=== PATIENT | female | born 1965 | race Caucasian/White ===

== ENCOUNTER → 2016-12-08 | Outpatient (CLI) | payer BC ==
[~2016-12-08] MED LIST: ASP81TEC PO; ENAL5TAB PO; FISH OIL OMEGA1 EACH PO; GEMF600T3 PO; GLIM4TAB PO; HYDR-690 PO; MTF500T PO; TAMO20TA2 PO; VITA400T9 PO
== END ==
LOC: FS 13:51
PROVIDERS: ATTEND Internal Medicine Hematology & Oncology
DX: C50.511 Malignant neoplasm of lower-outer quadrant of right female breast (principal); C77.3 Secondary and unspecified malignant neoplasm of axilla and upper limb lymph nodes; M85.80 Other specified disorders of bone density and structure, unspecified site; E11.9 Type 2 diabetes mellitus without complications; E66.9 Obesity, unspecified; Z68.34 Body mass index [BMI] 34.0-34.9, adult; Z79.811 Long term (current) use of aromatase inhibitors; Z79.899 Other long term (current) drug therapy; Z92.21 Personal history of antineoplastic chemotherapy
CPT/HCPCS: 99213

== ENCOUNTER → 2017-06-15 | Outpatient (CLI) | payer BC | LOC: ONC 11:27 | PROVIDERS: ATTEND Internal Medicine Hematology & Oncology | DX: C50.511 Malignant neoplasm of lower-outer quadrant of right female breast (principal); C77.3 Secondary and unspecified malignant neoplasm of axilla and upper limb lymph nodes; M85.80 Other specified disorders of bone density and structure, unspecified site; E11.9 Type 2 diabetes mellitus without complications; E66.9 Obesity, unspecified; Z68.34 Body mass index [BMI] 34.0-34.9, adult; Z79.811 Long term (current) use of aromatase inhibitors; Z79.899 Other long term (current) drug therapy; Z92.21 Personal history of antineoplastic chemotherapy | CPT/HCPCS: 99213 ==

== ENCOUNTER → 2018-04-20 | Outpatient (CLI) | payer BC | LOC: ONC 09:46 | PROVIDERS: ATTEND Internal Medicine Hematology & Oncology | DX: C50.511 Malignant neoplasm of lower-outer quadrant of right female breast (principal); C77.3 Secondary and unspecified malignant neoplasm of axilla and upper limb lymph nodes; M85.80 Other specified disorders of bone density and structure, unspecified site; E11.9 Type 2 diabetes mellitus without complications; E66.9 Obesity, unspecified; Z68.34 Body mass index [BMI] 34.0-34.9, adult; Z79.811 Long term (current) use of aromatase inhibitors; Z79.899 Other long term (current) drug therapy; Z92.21 Personal history of antineoplastic chemotherapy | CPT/HCPCS: 99213 ==

== ENCOUNTER → 2019-05-29 | Outpatient (CLI) | payer BC ==
--- NOTE | 2019-05-30 10:42 | Diagnostic Imaging Report ---
EXAMINATION: Digital mammogram INDICATION: Bilateral screening This study was compared to the prior exams of 05/25/2018 and 05/14/2017. 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 She also underwent reduction of the left breast in 2008. At this time there are no current complaints. The current study was also evaluated with a Computer Aided Detection (CAD) system. 3-D tomosynthesis was also performed and reviewed. The postsurgical changes involving the right breast seen previously are again evident and no different. There is no sign of recurrent malignancy involving the right breast. The fibroglandular tissue in both breasts is heterogeneously dense. This does limit the sensitivity of this exam. Overall, there does not appear to have been any significant change since the prior study. There is no primary or secondary sign of malignancy noted. IMPRESSION: 1. There is no evidence for malignancy. 2. The patient should have her annual bilateral mammogram on schedule in May 2020. ACR BI-RADS Category 1: Negative. Result letter will be mailed to the patient. Note: At least 10% of breast cancer is not imaged by mammography. Dictated by: Dictated on workstation # [id number]
== END ==
LOC: RAD 09:48
PROVIDERS: ATTEND Internal Medicine Hematology & Oncology
DX: Z12.31 Encounter for screening mammogram for malignant neoplasm of breast (principal); C50.111 Malignant neoplasm of central portion of right female breast; Z98.890 Other specified postprocedural states
CPT/HCPCS: 77067

== ENCOUNTER → 2019-12-15 | Outpatient (CLI) | payer BC ==
[2019-12-15 09:49] LABS: BASOPHILS % (AUTO) 0 % (0-10); EOSINOPHILS # (AUTO) 0.1 10^3/uL (0.0-0.3); EOSINOPHILS % (AUTO) 1 % (0-10); HEMATOCRIT 45 % (35-52); HEMOGLOBIN 14.7 G/DL (11.5-16.0); LYMPHOCYTES # (AUTO) 3.4 X 10^3 (1.0-4.0); LYMPHOCYTES % (AUTO) 37 % (12-44); MEAN CORPUSCULAR HEMOGLOBIN 27 PG (25-34); MEAN CORPUSCULAR HGB CONC 33 G/DL (32-36); MEAN CORPUSCULAR VOLUME 83 FL (80-99); MEAN PLATELET VOLUME 12.3 FL (7.4-10.4); MONOCYTES # (AUTO) 0.5 X 10^3 (0.0-1.0); MONOCYTES % (AUTO) 5 % (0-12); NEUTROPHILS # (AUTO) 5.1 X 10^3 (1.8-7.8); NEUTROPHILS % (AUTO) 56 % (42-75); PLATELET COUNT 320 10^3/uL (130-400); RED CELL DISTRIBUTION WIDTH 14.5 % (10.0-14.5); WHITE BLOOD COUNT 9.1 10^3/uL (4.3-11.0)
[2019-12-15 10:10] LABS: ALANINE AMINOTRANSFERASE 21 U/L (0-55); ALBUMIN 4.9 GM/DL (3.2-4.5); ALKALINE PHOSPHATASE 87 U/L (40-136); BILIRUBIN,TOTAL 0.2 MG/DL (0.1-1.0); BUN/CREATININE RATIO 20; CALCIUM 11.1 MG/DL (8.5-10.1); CARBON DIOXIDE 18 MMOL/L (21-32); CHLORIDE 103 MMOL/L (98-107); GFR ESTIMATED > 60; GLUCOSE 183 MG/DL (70-105); POTASSIUM 4.1 MMOL/L (3.6-5.0); SODIUM 136 MMOL/L (135-145); TOTAL PROTEIN 8.4 GM/DL (6.4-8.2)
== END ==
LOC: ONC 09:34
PROVIDERS: ATTEND Internal Medicine Hematology & Oncology
DX: C50.111 Malignant neoplasm of central portion of right female breast (principal); M85.88 Other specified disorders of bone density and structure, other site; Z79.899 Other long term (current) drug therapy; Z92.21 Personal history of antineoplastic chemotherapy; Z98.890 Other specified postprocedural states
CPT/HCPCS: 80053; 85025; G0463; 99213

== ENCOUNTER → 2020-07-02 | Outpatient (CLI) | payer BC ==
--- NOTE | 2020-07-02 13:06 | Diagnostic Imaging Report ---
INDICATION: Routine screening. Comparison is made with prior mammogram 05/29/2019 and 05/25/2018. 2-D and 3-D bilateral screening mammography was performed with CAD. Both breasts are heterogeneously dense, limiting the sensitivity of mammography. Post-therapeutic changes in the right breast are again noted. Area of architectural distortion appears to be stable. No definite recurrent mass is identified. There are scattered benign calcifications throughout both breasts. No malignant appearing microcalcifications are seen. The axillae are unremarkable. IMPRESSION: BI-RADS Category 2 No mammographic features suspicious for malignancy are identified. ACR BI-RADS Category 2: Benign findings. Result letter will be mailed to the patient. Note: At least 10% of breast cancer is not imaged by mammography. Dictated by: Dictated on workstation # [id number]
--- NOTE | 2020-07-02 15:02 | Diagnostic Imaging Report ---
INDICATION: Postmenopausal state. COMPARISON: None available. FINDINGS: AP Spine L1-L4: [BMD (g/cm2): 0.941] [T-Score: -2.2] [Z-Score: -2.2] [BMD Previous: NA] [BMD % Change: NA] LT Hip Neck: [BMD (g/cm2): 0.951] [T-Score: -0.6] [Z-Score: -0.2] LT Hip Total: [BMD (g/cm2):1.048] [T-Score:0.3] [Z-Score: 0.4] [BMD Previous: NA] [BMD % Change: NA] RT Hip Neck: [BMD (g/cm2):0.930] [T-Score:-0.8] [Z-Score:-0.3] RT Hip Total: [BMD (g/cm2):0.983] [T-score:-0.2] [Z-Score:-0.1] [BMD Previous:NA] [BMD % Change:NA] *Indicates significant change from prior examination based on 95% confidence level. World Health Organization criteria for BMD interpretation classify patients as Normal (T-score at or above -1.0), Osteopenic (T-score between -1.0 and -2.5) or Osteoporotic (T-score at or below -2.5). LIMITATIONS AND MODIFICATION: None. FRACTURE RISK (FRAX SCORE): Not calculated, as the patient is on treatment for osseous demineralization. IMPRESSION: 1. Osteopenia (Low bone mass). 2. Baseline examination. 3. See below National Osteoporosis Foundation guidelines on when to potentially initiate pharmacologic therapy. Based on the National Osteoporosis Foundation Guidelines, pharmacologic treatment should be initiated in any of the following, unless clinical conditions suggest otherwise: * Any patient with prior fragility fracture of the hip or vertebrae. A spine fracture indicates 5X risk for subsequent spine fracture and 2X risk for subsequent hip fracture. * Osteoporosis (T-score <-2.5). * Postmenopausal women and men age 50 and older with low bone mass/osteopenia (T-score between -1.0 and -2.5) by DXA and 10-year major osteoporotic fracture greater than 20% or a 10-year probability of hip fracture greater than 3%. These fracture risks are supplied above in the FRAX score, if applicable. * Clinician judgement and/or patient preferences may indicate treatment for people with 10-year fracture probabilities above or below these levels. Dictated by: Dictated on workstation # [id number]
== END ==
LOC: RAD 10:00
PROVIDERS: ATTEND Internal Medicine Hematology & Oncology
DX: Z12.31 Encounter for screening mammogram for malignant neoplasm of breast (principal); Z51.81 Encounter for therapeutic drug level monitoring; C50.111 Malignant neoplasm of central portion of right female breast; M85.80 Other specified disorders of bone density and structure, unspecified site; Z78.0 Asymptomatic menopausal state
CPT/HCPCS: 77063; 77067; 77080

== ENCOUNTER → 2020-12-19 | Outpatient (CLI) | payer BC ==
[2020-12-19 11:15] LABS: BASOPHILS % (AUTO) 1 % (0-10); EOSINOPHILS % (AUTO) 1 % (0-10); HEMATOCRIT 48 % (35-52); HEMOGLOBIN 15.6 g/dL (11.5-16.0); LYMPHOCYTES # (AUTO) 2.9 10^3/uL (1.0-4.0); LYMPHOCYTES % (AUTO) 37 % (12-44); MEAN CORPUSCULAR HEMOGLOBIN 27 pg (25-34); MEAN CORPUSCULAR HGB CONC 33 g/dL (32-36); MEAN CORPUSCULAR VOLUME 83 fL (80-99); MONOCYTES # (AUTO) 0.3 10^3/uL (0.0-1.0); MONOCYTES % (AUTO) 4 % (0-12); NEUTROPHILS # (AUTO) 4.4 10^3/uL (1.8-7.8); NEUTROPHILS % (AUTO) 57 % (42-75); PLATELET COUNT 245 10^3/uL (130-400); WHITE BLOOD COUNT 7.7 10^3/uL (4.3-11.0)
[2020-12-19 11:33] LABS: ALANINE AMINOTRANSFERASE 25 U/L (0-55); ALBUMIN 4.5 GM/DL (3.2-4.5); ALKALINE PHOSPHATASE 85 U/L (40-136); BILIRUBIN,TOTAL 0.5 MG/DL (0.1-1.0); BUN/CREATININE RATIO 16; CARBON DIOXIDE 23 MMOL/L (21-32); CHLORIDE 99 MMOL/L (98-107); CREATININE SERUM 0.74 MG/DL (0.60-1.30); GFR ESTIMATED > 60; GLUCOSE 352 MG/DL (70-105); POTASSIUM 3.9 MMOL/L (3.6-5.0); SODIUM 133 MMOL/L (135-145); TOTAL PROTEIN 8.1 GM/DL (6.4-8.2)
== END ==
LOC: ONC 11:05
PROVIDERS: ATTEND Internal Medicine Hematology & Oncology
DX: Z12.31 Encounter for screening mammogram for malignant neoplasm of breast (principal); M85.88 Other specified disorders of bone density and structure, other site; E11.69 Type 2 diabetes mellitus with other specified complication; Z85.3 Personal history of malignant neoplasm of breast; Z90.11 Acquired absence of right breast and nipple; Z98.890 Other specified postprocedural states; Z92.21 Personal history of antineoplastic chemotherapy; Z92.3 Personal history of irradiation
CPT/HCPCS: 80053; 85025; G0463; 99213

== ENCOUNTER → 2021-07-07 | Outpatient (CLI) | payer BC ==
--- NOTE | 2021-07-07 12:15 | Diagnostic Imaging Report ---
INDICATION: Routine screening. Comparison is made with prior mammogram 07/02/2020 and 05/29/2019. 2-D and 3-D bilateral screening mammography was performed with CAD. Both breasts are heterogeneously dense, limiting the sensitivity of mammography. Post-therapeutic changes in the upper right breast are again noted. Area of architectural distortion appears stable. No definite discrete mass is identified. There numerous benign calcifications throughout both breasts. No malignant-appearing microcalcifications are seen. Axillae are unremarkable. IMPRESSION: No mammographic features suspicious for malignancy are identified. BI-RADS Category 2 ACR BI-RADS Category 2: Benign findings. Result letter will be mailed to the patient. Note: At least 10% of breast cancer is not imaged by mammography. Dictated by: Dictated on workstation # [id number]
== END ==
LOC: RAD 09:15
PROVIDERS: ATTEND Internal Medicine Hematology & Oncology
DX: Z12.31 Encounter for screening mammogram for malignant neoplasm of breast (principal); Z85.3 Personal history of malignant neoplasm of breast
CPT/HCPCS: 77063; 77067

== ENCOUNTER 2022-08-08 07:26 | Inpatient (IN) | payer BC ==
[~2022-08-08] VITALS: Ht 165 cm; Wt 75.3 kg
[2022-08-08] MEDS ORDERED: NS IV 1000 ML 1,000 ML IV STA ×2 (07:31→08:30)
--- NOTE | 2022-08-08 07:31 | ED General ---
History of Present Illness Date Seen by Provider: Aug 08, 2022 Time Seen by Provider: 07:31 Initial Comments 57-year-old female presents to the ER for generalized weakness and vomiting. She reports that 4 days ago she went to urgent care for vomiting but did not provide any further information about that visit. She reports that she has not been eating or drinking since then. No reports of abdominal pain, cough fevers or chills. Allergies and Home Medications Allergies Coded Allergies: acetaminophen (Unverified Allergy, Unknown, RASH, 07/02/20) oxycodone HCl (Unverified Allergy, Unknown, RASH, 07/02/20) Patient Home Medication List Home Medication List Reviewed: Yes Aspirin (Aspirin Ec 81 Mg) 81 Mg Tabec, 81 MG PO DAILY, (Reported) Entered as Reported by: HEBER BENITEZ on 06/10/12956 Enalapril Maleate (Enalapril Maleate) 5 Mg Tablet, 5 MG PO DAILY, (Reported) Entered as Reported by: RADHA GTZ on 06/17/12850 Gemfibrozil (Gemfibrozil) 600 Mg Tablet, 1 EACH PO BID, (Reported) Entered as Reported by: HEBER BENITEZ on 06/10/12956 Glimepiride (Glimepiride) 4 Mg Tablet, 4 MG PO DAILY, (Reported) Entered as Reported by: HEBER BENITEZ on 06/10/12956 Hydrocodone Bit/Ibuprofen (Hydrocodone Bt-Ibuprofen Tab) 1 Tab Tablet, 1-2 EACH PO Q4H PRN, (Reported) Entered as Reported by: RADHA GTZ on 06/17/12850 Metformin Hcl (Metformin 500 Mg) 500 Mg Tablet, 1 EACH PO BID WITH MEALS, (Reported) Entered as Reported by: HEBER BENITEZ on 06/10/12956 Holcomb-3/Dha/Epa/Fish Oil (Fish Oil Holcomb-3 1,360 Mg Sfgl) 1 Each Capsule, 1 EACH PO BID, (Reported) Entered as Reported by: HEBER BENITEZ on 06/10/12956 Tamoxifen Citrate (Tamoxifen Citrate) 20 Mg Tablet, 20 MG PO DAILY, (Reported) Entered as Reported by: HEBER BENITEZ on 06/10/12956 Vitamin E Mixed (Vitamin E) 400 Unit Tablet, 400 UNIT PO DAILY, (Reported) Entered as Reported by: HEBER BENITEZ on 06/10/12 0957 Review of Systems Review of Systems Constitutional: No chills, No fever; malaise, weakness Respiratory: no symptoms reported Cardiovascular: no symptoms reported Gastrointestinal: No abdominal pain; nausea, vomiting Genitourinary: no symptoms reported Musculoskeletal: no symptoms reported Skin: no symptoms reported Psychiatric/Neurological: No Symptoms Reported Past Ugrgvcy-Qzpkhz-Qmetxa Hx Past Medical History Reproductive Disorders: Yes (UTERINE FIBROIDS) Physical Exam Vital Signs Vital Signs - First Documented 08/08/22 07:29 Pulse 96 Resp 23 B/P (MAP) 103/50 (67) Pulse Ox 100 O2 Delivery Room Air Capillary Refill : Height, Weight, BMI Height: '" Weight: lbs. oz. kg; BMI Method: General Appearance: Other (Appears ill ) HEENT: PERRL/EOMI Neck: Non Tender, Supple Respiratory: Lungs Clear, Normal Breath Sounds Cardiovascular: Regular Rate, Rhythm, No Edema Extremity: Non Tender Neurologic/Psychiatric: Alert, Oriented x3, No Motor/Sensory Deficits, Normal Mood/Affect, acreage reporter II-XII Norm as Tested Skin: Normal Color, Warm/Dry Focused Exam Lactate Level 08/08/22 08:25: Lactic Acid Level Laboratory Tests Test 08/08/22 08:25 Progress/Results/Core Measures Suspected Sepsis SIRS Temperature: Pulse: Respiratory Rate: Laboratory Tests 08/08/22 07:31: White Blood Count 16.1H Blood Pressure / Mean: 08/08/22 08:25: Laboratory Tests 08/08/22 07:31: Creatinine 0.82, Platelet Count 328, Total Bilirubin 0.4 Results/Orders Lab Results Laboratory Tests Test 08/08/22 07:31 08/08/22 08:25 Range/Units White Blood Count 16.1 H 4.3-11.0 10^3/uL Red Blood Count 6.25 H 3.80-5.11 10^6/uL Hemoglobin 17.6 H 11.5-16.0 g/dL Hematocrit 49 35-52 % Mean Corpuscular Volume 79 L 80-99 fL Mean Corpuscular Hemoglobin 28 25-34 pg Mean Corpuscular Hemoglobin Concent 36 32-36 g/dL Red Cell Distribution Width 12.6 10.0-14.5 % Platelet Count 328 130-400 10^3/uL Mean Platelet Volume 12.0 9.0-12.2 fL Immature Granulocyte % (Auto) 1 % Neutrophils (%) (Auto) 87 H 42-75 % Lymphocytes (%) (Auto) 5 L 12-44 % Monocytes (%) (Auto) 6 0-12 % Eosinophils (%) (Auto) 0 0-10 % Basophils (%) (Auto) 0 0-10 % Neutrophils # (Auto) 14.1 H 1.8-7.8 10^3/uL Lymphocytes # (Auto) 0.8 L 1.0-4.0 10^3/uL Monocytes # (Auto) 0.9 0.0-1.0 10^3/uL Eosinophils # (Auto) 0.1 0.0-0.3 10^3/uL Basophils # (Auto) 0.1 0.0-0.1 10^3/uL Immature Granulocyte # (Auto) 0.2 H 0.0-0.1 10^3/uL Neutrophils % (Manual) 91 % Lymphocytes % (Manual) 6 % Monocytes % (Manual) 3 % Sodium Level 117 *L 135-145 MMOL/L Potassium Level 4.2 3.6-5.0 MMOL/L Chloride Level 79 L 98-107 MMOL/L Carbon Dioxide Level 5 *L 21-32 MMOL/L Anion Gap 33 H 5-14 MMOL/L Blood Urea Nitrogen 36 H 7-18 MG/DL Creatinine 0.82 0.60-1.30 MG/DL Estimat Glomerular Filtration Rate 83 BUN/Creatinine Ratio 44 Glucose Level 666 *H 70-105 MG/DL Calcium Level 8.9 8.5-10.1 MG/DL Corrected Calcium 8.6 8.5-10.1 MG/DL Magnesium Level 2.6 H 1.6-2.4 MG/DL Total Bilirubin 0.4 0.1-1.0 MG/DL Aspartate Amino Transf (AST/SGOT) 25 5-34 U/L Alanine Aminotransferase (ALT/SGPT) 26 0-55 U/L Alkaline Phosphatase 114 40-136 U/L Troponin I < 0.30 <0.30 NG/ML C-Reactive Protein 2.73 H <0.50 MG/DL Total Protein 7.5 6.4-8.2 GM/DL Albumin 4.4 3.2-4.5 GM/DL Lipase 2720 H 8-78 U/L Influenza Type A (RT-PCR) Not Detected Not Detecte Influenza Type B (RT-PCR) Not Detected Not Detecte SARS-CoV-2 RNA (RT-PCR) Detected H Not Detecte Venous Blood pH 6.88 L 7.31-7.41 Venous Blood Partial Pressure CO2 24 L 40-52 MMHG Venous Blood HCO3 5 L 22-28 MMOL/L My Orders Orders - DONALD,INNA L DO Cbc With Automated Diff (08/08/22 07:31) Comprehensive Metabolic Panel (08/08/22 07:31) Lactic Acid Analyzer (08/08/22 07:31) Lipase (08/08/22 07:31) Magnesium (08/08/22 07:31) Influenza A And B By Pcr (08/08/22 07:31) Crp Fs (08/08/22 07:31) Troponin I Fs (08/08/22 07:31) Covid 19 Inhouse Test (08/08/22 07:31) Ondansetron Injection (Zofran Injectio (08/08/22 07:45) Ns Iv 1000 Ml (Sodium Chloride 0.9%) (08/08/22 07:31) Acute Abd Series (08/08/22 07:31) Ua Culture If Indicated (08/08/22 07:33) Manual Differential (08/08/22 07:31) Arterial Blood Gas (08/08/22 07:49) Blood Culture (08/08/22 07:55) 07/06 Ns Iv Solution... W/Sodium Bicarbona (08/08/22 08:15) Insulin Regular Drip (Myxredlin 100 Unit (08/08/22 08:15) Sodium Bicarbonate 8.4% Syr (Sodium Bica (08/08/22 08:15) 1/2 Ns Iv Solution (0.45% Sodium Chlorid (08/08/22 08:15) Venous Blood Gas (08/08/22 08:25) Catheter(Urinary) Insert & Ass 03,15 (08/08/22 08:28) Lidocaine 2% (Urojet) (Xylocaine Urojet) (08/08/22 08:30) Sodium Bicarbonate 8.4% Syr (Sodium Bica (08/08/22 08:24) Ns Iv 1000 Ml (Sodium Chloride 0.9%) (08/08/22 08:30) Ed Admission (Communication) (08/08/22 08:32) Medications Given in ED Current Medications Medications Dose Ordered Sig/Teddy Route Start Time Stop Time Status Last Admin Dose Admin Ondansetron HCl 4 mg ONCE ONCE IVP 08/08/22 07:45 08/08/22 07:46 DC 08/08/22 08:06 4 MG Vital Signs/I&O 08/08/22 07:29 Pulse 96 Resp 23 B/P (MAP) 103/50 (67) Pulse Ox 100 O2 Delivery Room Air Capillary Refill : Progress Note : Time: 08:38 Progress Note Patient's labs were reviewed. Patient is critically ill. Patient with likely DKA and is also positive for COVID. Patient's labs were reviewed and had extremely low sodium, CO2 with elevated glucose of 666. Patient had elevated lipase likely reactive from COVID and DKA. Patient's white count and hemoglobin were both slightly elevated likely due to severe fluid deficit. Patient was started on IV fluids bolus normal saline bolus along with bicarb and half-normal saline. Patient was started on insulin drip. Patient's x-ray was reviewed and shows no acute findings. Discussed with Dr. Vasquez. Patient to be admitted to [facility] ICU for further inpatient management. We discussed IV antibiotics but at this time with COVID and DKA is likely not bacterial and IV antibiotics are not indicated. Patient was transferred in critical condition via EMS. Diagnostic Imaging Diagonstic Imaging: Xray Plain Films/CT/US/NM/MRI: chest, abdomen Comments Date of Exam:08/08/22 ACUTE ABD SERIES INDICATION: Vomiting and weakness. Time of Exam: 8:01 AM Heart size is normal. Lungs are clear. No free air is identified. There are surgical clips in the gallbladder fossa. Bowel gas pattern appears nonobstructed. No pathologic calcifications are seen. IMPRESSION: No acute abnormality is identified. Reviewed: Reviewed by Me, Reviewed/Discussed Critical Care Note Critical Care Total Time (minutes) 60 Departure Impression Primary Impression: DKA (diabetic ketoacidosis) Qualified Codes: E13.10 - Other specified diabetes mellitus with ket oacidosis without coma Additional Impression: COVID Disposition: 30 STILL A PATIENT Condition: Critical Admissions Decision to Admit/Date: Aug 08, 2022 Time/Decision to Admit Time: 08:32 Departure-Patient Inst. Referrals: RUPALI LOOMIS APRN (PCP) Primary Care Physician [facility] (Family) Primary Care Physician INNA DONALD DO Aug 08, 2022 07:31
[2022-08-08 07:44] LABS: BASOPHILS # (AUTO) 0.1 10^3/uL (0.0-0.1); BASOPHILS % (AUTO) 0 % (0-10); EOSINOPHILS # (AUTO) 0.1 10^3/uL (0.0-0.3); EOSINOPHILS % (AUTO) 0 % (0-10); HEMATOCRIT 49 % (35-52); HEMOGLOBIN 17.6 g/dL (11.5-16.0); LYMPHOCYTES # (AUTO) 0.8 10^3/uL (1.0-4.0); LYMPHOCYTES % (AUTO) 5 % (12-44); MEAN CORPUSCULAR HEMOGLOBIN 28 pg (25-34); MEAN CORPUSCULAR HGB CONC 36 g/dL (32-36); MEAN CORPUSCULAR VOLUME 79 fL (80-99); MONOCYTES # (AUTO) 0.9 10^3/uL (0.0-1.0); MONOCYTES % (AUTO) 6 % (0-12); NEUTROPHILS # (AUTO) 14.1 10^3/uL (1.8-7.8); NEUTROPHILS % (AUTO) 87 % (42-75); PLATELET COUNT 328 10^3/uL (130-400); WHITE BLOOD COUNT 16.1 10^3/uL (4.3-11.0)
[2022-08-08] MEDS ORDERED: ONDANSETRON 4 MG/2 ML (SDV) Z0FRAN IVP ONE (07:45)
[2022-08-08 08:05] LABS: BUN/CREATININE RATIO 44; CHLORIDE 79 MMOL/L (98-107); CREATININE SERUM 0.82 MG/DL (0.60-1.30); GFR ESTIMATED 83; POTASSIUM 4.2 MMOL/L (3.6-5.0)
[2022-08-08 08:06] LABS: ALANINE AMINOTRANSFERASE 26 U/L (0-55); ALBUMIN 4.4 GM/DL (3.2-4.5); ALKALINE PHOSPHATASE 114 U/L (40-136); BILIRUBIN,TOTAL 0.4 MG/DL (0.1-1.0); CALCIUM 8.9 MG/DL (8.5-10.1); MAGNESIUM 2.6 MG/DL (1.6-2.4); TOTAL PROTEIN 7.5 GM/DL (6.4-8.2)
[2022-08-08 08:10] LABS: CARBON DIOXIDE 5 MMOL/L (21-32); GLUCOSE 666 MG/DL (70-105); SODIUM 117 MMOL/L (135-145)
[2022-08-08 08:15] LABS: LIPASE 2720 U/L (8-78)
[2022-08-08] MEDS ORDERED: SODIUM BICARBONATE 8.4% VIAL 75 MEQ in 1/2 NS IV SOLUTION 1,000 ML IV SCH (08:15)
[2022-08-08] MEDS ORDERED: SODIUM BICARB 8.4% 50 MEQ/50 ML (ABBOTT) SYR ONE ×2 (08:15→08:24)
[2022-08-08] MEDS ORDERED: 1/2 NS IV SOLUTION 1,000 ML IV ONE (08:15)
--- NOTE | 2022-08-08 08:15 | Diagnostic Imaging Report ---
INDICATION: Vomiting and weakness. Time of Exam: 8:01 AM Heart size is normal. Lungs are clear. No free air is identified. There are surgical clips in the gallbladder fossa. Bowel gas pattern appears nonobstructed. No pathologic calcifications are seen. IMPRESSION: No acute abnormality is identified. Dictated by: Dictated on workstation # [id number]
[2022-08-08 08:25] LABS: LYMPHOCYTES % (MANUAL) 6 %; MONOCYTES % (MANUAL) 3 %; NEUTROPHILS % (MANUAL) 91 %
[2022-08-08] MEDS ORDERED: LIDOCAINE UROJET 2% GEL 10 ML PKG TOP ONE (08:30)
[2022-08-08] MEDS ORDERED: inSUlin (REGULAR) HUMAN 1 UNIT/0.01 ML (CHARGE PER UNIT) IV ONE (09:00)
[2022-08-08 09:22] LABS: BACTERIA,URINE LARGE /HPF; BILIRUBIN,URINE 1+ (NEGATIVE); CLARITY,URINE SLIGHTLY CLOUDY; COLOR,URINE YELLOW; GLUCOSE, URINE (UA) 3+ (NEGATIVE); KETONES,URINE 3+ (NEGATIVE); LEUKOCYTE ESTERASE ,URINE NEGATIVE (NEGATIVE); NITRITE,URINE NEGATIVE (NEGATIVE); PROTEIN,URINE 1+ (NEGATIVE)
--- NOTE | 2022-08-08 10:13 | Tele-ICU Progress Note ---
Subjective Date Seen by a Provider: Aug 08, 2022 Subjective/Events-last exam This virtual visit was conducted using real time audio/video. Thank you for asking us to see this patient forcritical care services due to DKA, Covidpositive and elevated lipase. Recent events: Transferred from [facility]. PMH: DM, Htn. SH: smoking history N FH: Non-contributory ROS:micaela HPI. PE: Appears comfortable. VSS. O2 sat 10% on RA. HEENT: No obvious masses, adenopathy or JVD. Chest: clear to auscultation. CV: RRR S1 S2 No murmur or added sounds. Abd: Non-tender. Bowel sounds Y. : Unremarkable. Dawn N. POULTRY KILLER/psychiatric: Grossly intact. No obvious focal findings. Extremities: No edema. Capillary refill < 3 seconds. Skin: unremarkable. Results: Elevated WCC 16.1, Hb 17.6, BG 582, BUN 36. Decreased CO25, Na 117. Available chart/ vitals / labs / images reviewed. Video assessment done using teleICU camera, rest of exam as per RN. A/P: Critical Care: critically ill patient. Cont. IVF, IV insulin. Stop Bicarb drip and check lytes stat. Discussed with RN Veda. Asked RN to reach out to eICU if any questions or concerns later. Time spent with patient/coordination of care with other health professionals (mins): 20 Sepsis Event Evaluation Height, Weight, BMI Height: '" Weight: lbs. oz. kg; BMI Method: Focused Exam Lactate Level 08/08/22 08:25: Lactic Acid Level 1.71 Lactic Acid Level Laboratory Tests Test 08/08/22 08:25 Lactic Acid Level 1.71 MMOL/L (0.50-2.00) Exam Exam Patient acknowledged, consented, and participated in this virtual visit which wa s conducted using real time audio/video Vital Signs Date Time Temp Pulse Resp B/P (MAP) Pulse Ox O2 Delivery O2 Flow Rate FiO2 08/08/22 09:15 36.4 93 23 105/62 100 Room Air 08/08/22 07:29 96 23 103/50 (67) 100 Room Air Height & Weight Height: '" Weight: lbs. oz. 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 Critical Care: Critically Ill Patient ARVIN CHAPA MD Aug 08, 2022 10:13
[2022-08-08] MEDS ORDERED: ONDANSETRON 4 MG (ZOFRAN) ORAL DISSOLVE TAB PO PRN (10:15)
[2022-08-08] MEDS ORDERED: diphenhydrAMINE 25 MG TAB (BENADRYL) PO PRN (10:15)
[2022-08-08] MEDS ORDERED: ANTACID SUSP 30 ML UDC (MYLANTA) PO PRN (10:15)
[2022-08-08] MEDS ORDERED: LORazepam INJ 2 MG/ML (ATIVAN) VIAL IVP PRN (10:15)
[2022-08-08] MEDS ORDERED: HYDROcodone/APAP 5 MG/325 MG (LORTAB) TAB PO PRN (10:15)
[2022-08-08] MEDS ORDERED: NS IV 500 ML 500 ML IV PRN (10:15)
[2022-08-08] MEDS ORDERED: HYDROmorphone 2 MG/ML VIAL (DILAUDID) IV PRN (10:15)
[2022-08-08] MEDS ORDERED: MELATONIN 3 MG TABLET PO PRN (10:15)
[2022-08-08] MEDS ORDERED: polyethylene glycoL POWDER 17 GM (MIRALAX) PACK PO PRN (10:15)
[2022-08-08] MEDS ORDERED: NS IV 1000 ML 1,000 ML IV SCH (10:15)
[2022-08-08] MEDS ORDERED: BISACODYL 10 MG SUPP (DULCOLAX) PR PRN (10:15)
[2022-08-08] MEDS ORDERED: LORazepam 0.5 MG (ATIVAN) TABLET PO PRN (10:15)
[2022-08-08] MEDS ORDERED: ONDANSETRON 4 MG/2 ML (SDV) Z0FRAN IV PRN (10:15)
[2022-08-08] MEDS ORDERED: diphenhydrAMINE 50 MG/ML INJ (BENADRYL) IVP PRN (10:15)
[2022-08-08] MEDS ORDERED: ACETAMINOPHEN 325 MG TABLET PO PRN (10:15)
[2022-08-08] MEDS ORDERED: NS IV 1000 ML 1,000 ML ONE (10:28)
[2022-08-08] MEDS ORDERED: POTASSIUM CL 10MEQ/50ML IVPB 50 ML IV ONE (10:28)
[2022-08-08] MEDS: NOREPINEPHRINE 8 MG/250 ML 250 ML IV SCH (10:30)
[2022-08-08 10:57] LABS: ABG BASE EXCESS -24.7 MMOL/L (-2.5-2.5); ABG OXYGEN SATURATION 99 % (94-100); ABG PO2 120 MMHG (79-93)
--- NOTE | 2022-08-08 10:57 | History & Physical-Hospitalist ---
History of Present Illness HPI/Chief Complaint Chief complaint: COVID with DKA HPI: This is a 57-year-old female who has a history of diabetes who presented to the [place] [facility] ER with altered mental status. She was found to have COVID. DKA was also diagnosed. Patient is unable to provide any details. Source: patient Exam Limitations: no limitations Date Seen 08/08/22 Time Seen by a Provider: 11:00 Attending Physician Tiana Evans Aprn PCP Admitting Physician: Renetta Vasquez DO Attending Physician: Renteta Vasquez DO Referring Physician Date of Admission Aug 08, 2022 at 08:33 Home Medications & Allergies Home Medications Reviewed patient Home Medication Reconciliation performed by pharmacy medication reconciliations explosive technician and/or nursing. Patients Allergies have been reviewed. Allergies Allergies Coded Allergies oxycodone HCl (Unverified Allergy, Unknown, RASH, 07/02/20) Past Zdbljzq-Phpyvo-Qkonii Hx Patient Social History Marrital Status: single Employed/Student: unemployed Tobacco Use?: No Smoking Status: Unknown if Ever Smoked Use of E-Cig and/or Vaping dev: No Substance use?: No Alcohol Use?: No Pt feels they are or have been: No Immunizations Up To Date Date of Influenza Vaccine: Apr 18, 2012 Date of Pneumonia Vaccine: Jun 17, 2008 Current Status Advance Directives: No Primary Language: Bahamian Preferred Spoken Language: Bahamian Past Medical History High Cholesterol, Hypertension Diabetes, Non-Insulin dep Review of Systems Constitutional: see HPI, malaise, weakness EENTM: no symptoms reported Respiratory: no symptoms reported Cardiovascular: no symptoms reported Gastrointestinal: no symptoms reported Genitourinary: no symptoms reported Musculoskeletal: no symptoms reported Skin: no symptoms reported Psychiatric/Neurological: No Symptoms Reported All Other Systems Reviewed Negative Unless Noted: Yes Physical Exam Physical Exam Vital Signs Vital Signs - First Documented 08/08/22 08/08/22 08/08/22 07:29 09:15 11:01 Temp 36.4 Pulse 96 Resp 23 B/P (MAP) 103/50 (67) Pulse Ox 100 O2 Delivery Room Air FiO2 21 Capillary Refill : Less Than 3 Seconds Height, Weight, BMI Height: '" Weight: lbs. oz. kg; BMI Method: General Appearance: No Apparent Distress, Chronically ill Eyes: Right Eye Normal Inspection, Right Eye PERRL HEENT: PERRL/EOMI, Normal ENT Inspection, Pharynx Normal, Moist Mucous Membranes Neck: Full Range of Motion, Normal Inspection, Non Tender Respiratory: Chest Non Tender, Lungs Clear, Normal Breath Sounds, No Accessory Muscle Use, No Respiratory Distress Cardiovascular: Regular Rate, Rhythm, No Edema, No Gallop, No JVD, No Murmur, Normal Peripheral Pulses Gastrointestinal: Normal Bowel Sounds, No Organomegaly, No Pulsatile Mass, Non Tender, Soft Back: Normal Inspection, No CVA Tenderness, No Vertebral Tenderness Extremity: Normal Capillary Refill, Normal Inspection, Normal Range of Motion, Non Tender, No Calf Tenderness, No Pedal Edema Neurologic/Psychiatric: Alert, tariff clerk II-XII Norm as Tested, Depressed Affect, Disoriented, Motor Weakness (Generalized) Skin: Normal Color, Warm/Dry Lymphatic: No Adenopathy Results Results/Procedures Labs Laboratory Tests 08/08/22 07:31 08/08/22 10:40 Patient resulted labs reviewed. Assessment/Plan Admission Diagnosis Assessment: DKA COVID infection Encephalopathy Hypertension Dehydration Plan: ICU Insulin drip Admission Status: Inpatient Order (span 2 midnights) Reason for Inpatient Admission: DKA RENETTA VASQUEZ DO Aug 08, 2022 10:57
[2022-08-08 10:59] LABS: CHLORIDE 98 MMOL/L (98-107); POTASSIUM 2.6 MMOL/L (3.6-5.0)
[2022-08-08 11:00] LABS: CALCIUM 7.9 MG/DL (8.5-10.1)
[2022-08-08 11:01] VITALS: BP 105/62
[2022-08-08 11:04] LABS: CREATININE SERUM 1.37 MG/DL (0.60-1.30); GFR ESTIMATED 45
[2022-08-08 11:04] LABS: ABG PH 7.07 (7.37-7.43)
[2022-08-08 11:05] LABS: BUN/CREATININE RATIO 23
[2022-08-08 11:05] LABS: ABG PCO2 14 MMHG (35-45); ABG TCO2 4.5 MMOL/L (21.0-31.0); ALLENS TEST POSITIVE; PATIENT TEMP 35.6; VENTILATOR NO
[2022-08-08 11:06] LABS: SODIUM 122 MMOL/L (135-145)
[2022-08-08 11:07] LABS: CARBON DIOXIDE < 5 MMOL/L (21-32); GLUCOSE 465 MG/DL (70-105)
[2022-08-08] MEDS: POTASSIUM CL 10MEQ/50ML IVPB 50 ML IV SCH ×8 (11:13→23:52)
[2022-08-08] MEDS: ENOXAPARIN 40 MG/0.4 ML (LOVENOX) SYR SC SCH (13:07)
[2022-08-08] MEDS: 1/2 NS IV SOLUTION 1,000 ML IV SCH ×4 (13:11→22:15)
[2022-08-08 14:39] LABS: POTASSIUM 3.1 MMOL/L (3.6-5.0)
[2022-08-08 14:41] LABS: CALCIUM 7.6 MG/DL (8.5-10.1)
[2022-08-08 14:45] LABS: CREATININE SERUM 1.08 MG/DL (0.60-1.30)
[2022-08-08] MEDS: D5 1/2 NS 1000 ML IV SOLUTION 1,000 ML IV SCH ×2 (18:55→23:52)
[2022-08-08 19:56] LABS: CALCIUM 7.6 MG/DL (8.5-10.1); CREATININE SERUM 0.91 MG/DL (0.60-1.30); POTASSIUM 3.1 MMOL/L (3.6-5.0)
[2022-08-08] MEDS: DOCUSATE SODIUM 100 MG (COLACE) CAP PO SCH (21:11)
[2022-08-09 00:56] LABS: POTASSIUM 2.8 MMOL/L (3.6-5.0)
[2022-08-09 00:57] LABS: CALCIUM 7.9 MG/DL (8.5-10.1)
[2022-08-09 01:01] LABS: CREATININE SERUM 0.86 MG/DL (0.60-1.30)
[2022-08-09] MEDS: DexMEDEtomidine 250 ML DRIP 250 ML IV SCH ×2 (02:03→06:13)
[2022-08-09] MEDS: 1/2 NS IV SOLUTION 1,000 ML IV SCH ×6 (02:43→22:40)
[2022-08-09] MEDS: POTASSIUM CL 10MEQ/50ML IVPB 50 ML IV SCH ×12 (03:42→22:16)
[2022-08-09] MEDS: D5 1/2 NS 1000 ML IV SOLUTION 1,000 ML IV SCH ×5 (03:42→22:16)
[2022-08-09 05:29] LABS: BASOPHILS % (AUTO) 0 % (0-10); EOSINOPHILS % (AUTO) 1 % (0-10); HEMATOCRIT 40 % (35-52); HEMOGLOBIN 14.4 g/dL (11.5-16.0); LYMPHOCYTES # (AUTO) 0.4 10^3/uL (1.0-4.0); LYMPHOCYTES % (AUTO) 9 % (12-44); MEAN CORPUSCULAR HEMOGLOBIN 28 pg (25-34); MEAN CORPUSCULAR HGB CONC 36 g/dL (32-36); MEAN CORPUSCULAR VOLUME 78 fL (80-99); MEAN PLATELET VOLUME 11.4 fL (9.0-12.2); MONOCYTES # (AUTO) 0.4 10^3/uL (0.0-1.0); MONOCYTES % (AUTO) 9 % (0-12); NEUTROPHILS # (AUTO) 3.4 10^3/uL (1.8-7.8); NEUTROPHILS % (AUTO) 81 % (42-75); PLATELET COUNT 186 10^3/uL (130-400); WHITE BLOOD COUNT 4.1 10^3/uL (4.3-11.0)
[2022-08-09 05:41] LABS: POTASSIUM 2.9 MMOL/L (3.6-5.0)
[2022-08-09 05:42] LABS: CALCIUM 7.9 MG/DL (8.5-10.1)
[2022-08-09 05:44] LABS: TOTAL PROTEIN 5.7 GM/DL (6.4-8.2)
[2022-08-09 05:45] LABS: BILIRUBIN,TOTAL 0.4 MG/DL (0.1-1.0)
[2022-08-09 05:47] LABS: CREATININE SERUM 0.83 MG/DL (0.60-1.30)
[2022-08-09 05:50] LABS: MAGNESIUM 1.9 MG/DL (1.6-2.4)
[2022-08-09] MEDS: NOREPINEPHRINE 8 MG/250 ML 250 ML IV SCH (05:56)
[2022-08-09] MEDS: MAGNESIUM 1 GM/100 ML IVPB 100 ML IV SCH (05:56)
[2022-08-09] MEDS ORDERED: POTASSIUM CL 10MEQ/50ML IVPB 50 ML IV ONE (06:00)
[2022-08-09] MEDS: KCL 20 MEQ TAB (K-DUR) PO SCH (06:13)
[2022-08-09 06:14] LABS: PHOSPHORUS 0.7 MG/DL (2.3-4.7)
--- NOTE | 2022-08-09 07:40 | Progress Note - Hospitalist ---
Subjective HPI/CC On Admission Date Seen by Provider: Aug 09, 2022 Time Seen by Provider: 11:00 Chief complaint: COVID with DKA HPI: This is a 57-year-old female who has a history of diabetes who presented to the [facility] ER with altered mental status. She was found to have COVID. DKA was also diagnosed. Patient is unable to provide any details. Subjective/Events-last exam Patient doing much better Less confused Boyfriend at bedside Reports she came home from work on was not feeling well No other concerns Bicarb is still low Remains on insulin drip Lungs are clear Review of Systems General: Fatigue, Malaise Focused Exam Lactate Level 08/08/22 08:25: Lactic Acid Level 1.71 Objective Exam Vital Signs Vital Signs Date Time Temp Pulse Resp B/P (MAP) Pulse Ox O2 Delivery O2 Flow Rate FiO2 08/09/22 12:00 92 29 104/67 (82) 98 Room Air 08/09/22 12:00 35.9 08/08/22 11:01 21 Capillary Refill : Less Than 3 Seconds General Appearance: No Apparent Distress, WD/WN, Chronically ill Respiratory: Lungs Clear, Normal Breath Sounds Cardiovascular: Regular Rate, Rhythm Neurologic/Psychiatric: Alert, Oriented x3, No Motor/Sensory Deficits, Normal Mood/Affect Results/Procedures Lab Laboratory Tests 08/08/22 14:20 08/08/22 19:30 08/09/22 00:25 08/09/22 05:21 Patient resulted labs reviewed. Assessment/Plan Assessment and Plan Assess & Plan/Chief Complaint Assessment: DKA COVID infection Encephalopathy-improved Hypertension Dehydration Plan: ICU Insulin drip Critical Care Critically Ill Patient BRAD DIAS DO Aug 09, 2022 07:40
[2022-08-09] MEDS ORDERED: POTASSIUM PHOSPHATE INJ 30 MM in NS (IVPB) 250 ML IV ONE (08:00)
[2022-08-09 08:26] LABS: ABG OXYGEN SATURATION 99 % (94-100); ABG PCO2 20 MMHG (35-45); ABG PH 7.39 (7.37-7.43); ABG PO2 86 MMHG (79-93); ABG TCO2 12.9 MMOL/L (21.0-31.0)
[2022-08-09 08:28] LABS: ALLENS TEST POSITIVE; PATIENT TEMP 36.1; VENTILATOR NO
--- NOTE | 2022-08-09 08:46 | Tele-ICU Progress Note ---
Subjective Date Seen by a Provider: Aug 09, 2022 Subjective/Events-last exam This virtual visit was conducted using real time audio/video. Thank you for asking us to see this patient forcritical care services due to DKA, Covid positive and elevated lipase. Recent events: Transferred from [facility] /. placed on precedex for overnight agitation. PMH: DM, Htn. SH: smoking history N FH: Non-contributory ROS:as in HPI. PE: Appears comfortable. VSS. O2 sat 100% on RA. HEENT: No obvious masses, adenopathy or JVD. Chest: clear to auscultation. CV: RRR S1 S2 No murmur or added sounds. Abd: Non-tender. Bowel sounds hyperactive. : Unremarkable. Dawn N. 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 No obvious focal findings. Extremities: No edema. Capillary refill < 3 seconds. Skin: unremarkable. Results: Elevated BG 240, decreased, BUN 36. Decreased CO2 8, improved, Na 130. Bicarb 12 improved Available chart/ vitals / labs / images reviewed. Video assessment done using teleICU camera, rest of exam as per RN. A/P: Critical Care: critically ill patient. Cont. IVF, IV insulin, PPI, Prec., dalia. replace K, PO4. Recheck lipase Discussed with RN Nallely. Asked RN to reach out to eICU if any questions or concerns later. Time spent with patient/coordination of care with other health professionals (mins): 18 Sepsis Event Evaluation Height, Weight, BMI Height: '" Weight: lbs. oz. kg; 27.21 BMI Method: Focused Exam Lactate Level 08/08/22 08:25: Lactic Acid Level 1.71 Exam Exam Patient acknowledged, consented, and participated in this virtual visit which was conducted using real time audio/video Vital Signs Date Time Temp Pulse Resp B/P (MAP) Pulse Ox O2 Delivery O2 Flow Rate FiO2 08/09/22 07:59 36.1 08/09/22 07:00 99 08/09/22 07:00 113 24 139/78 (97) 91 Room Air 08/09/22 06:17 99 131/72 08/09/22 06:13 99 131/72 08/09/22 06:00 98 16 104/70 (81) 97 Room Air 08/09/22 05:01 36.5 08/09/22 05:00 85 18 119/98 (105) 90 Room Air 08/09/22 04:00 99 31 131/72 (91) 100 Room Air 08/09/22 04:00 97 Room Air 08/09/22 03:00 109 26 119/68 (85) 99 Room Air 08/09/22 02:03 109 122/74 08/09/22 02:00 112 29 122/74 (90) 99 Room Air 08/09/22 01:00 115 08/09/22 01:00 115 26 135/74 (94) 99 Room Air 08/09/22 00:07 97 Room Air 08/09/22 00:00 112 24 112/69 (83) 98 Room Air 08/08/22 23:10 36.4 32 Room Air 08/08/22 23:00 112 29 120/70 (87) 99 Room Air 08/08/22 22:00 104 24 117/61 (79) 100 Room Air 08/08/22 21:00 107 29 125/64 (84) 100 Room Air 08/08/22 20:00 100 Room Air 08/08/22 20:00 112 22 121/62 (81) 100 Room Air 08/08/22 20:00 99 Room Air 08/08/22 19:47 36.3 Room Air 08/08/22 19:00 115 31 116/67 (83) 100 Room Air 08/08/22 19:00 115 08/08/22 18:00 108 33 130/72 (90) 100 Room Air 08/08/22 17:00 111 28 118/60 (76) 99 Room Air 08/08/22 16:00 110 14 125/73 (98) 100 Room Air 08/08/22 16:00 36.3 08/08/22 16:00 98 Room Air 08/08/22 15:00 108 22 128/72 (90) 98 Room Air 08/08/22 14:00 105 22 137/74 (97) 92 Room Air 08/08/22 13:00 104 08/08/22 13:00 106 27 106/82 (85) 100 Room Air 08/08/22 12:00 98 20 121/64 (78) 100 Room Air 08/08/22 12:00 96 Room Air 08/08/22 11:01 96 100 21 08/08/22 11:00 92 22 117/91 (101) 96 Room Air 08/08/22 10:32 94 08/08/22 10:30 94 18 107/59 (70) 96 Room Air 08/08/22 10:20 97 Room Air 08/08/22 09:15 36.4 93 23 105/62 100 Room Air I & O 08/09/22 06:59 Intake Total 6950 ml Output Total 4050 ml Balance 2900 ml Height & Weight Height: '" Weight: lbs. oz. kg; 27.21 BMI Method: General Appearance: No Apparent Distress, Chronically ill HEENT: PERRL/EOMI, Normal ENT Inspection, Pharynx Normal, Moist Mucous Membranes Neck: Full Range of Motion, Normal Inspection, Non Tender Respiratory: Chest Non Tender, Lungs Clear, Normal Breath Sounds, No Accessory Muscle Use, No Respiratory Distress Cardiovascular: Regular Rate, Rhythm, No Edema, No Gallop, No JVD, No Murmur, Normal Peripheral Pulses Capillary Refill: Less Than 3 Seconds Extremity: Normal Capillary Refill, Normal Inspection, Normal Range of Motion, Non Tender, No Calf Tenderness, No Pedal Edema Neurologic/Psychiatric: Alert, head chopper II-XII Norm as Tested, Depressed Affect, Disoriented, Motor Weakness (Generalized) Skin: Normal Color, Warm/Dry Lymphatic: No Adenopathy Results Lab Laboratory Tests 08/08/22 07:31 08/08/22 10:40 08/08/22 14:20 08/08/22 19:30 08/09/22 00:25 08/09/22 05:21 Assessment/Plan Assessment/Plan See free text. Critical Care: Critically Ill Patient ARVIN CHAPA MD Aug 09, 2022 08:46
[2022-08-09] MEDS: DOCUSATE SODIUM 100 MG (COLACE) CAP PO SCH ×2 (09:03→19:49)
[2022-08-09] MEDS: PANTOPRAZOLE 40 MG (PROTONIX) VIAL IV SCH (09:03)
[2022-08-09] MEDS: ENOXAPARIN 40 MG/0.4 ML (LOVENOX) SYR SC SCH (10:52)
[2022-08-09] MEDS ORDERED: FOLIC ACID 5MG/ML 10 ML IV ONE (11:15)
[2022-08-09] MEDS ORDERED: THIAMINE 100 MG/ML 2 ML (VITAMIN B-1) VIAL IV ONE (11:15)
[2022-08-09 14:41] LABS: POTASSIUM 2.9 MMOL/L (3.6-5.0)
[2022-08-09 14:42] LABS: CALCIUM 7.6 MG/DL (8.5-10.1)
[2022-08-09 14:47] LABS: CREATININE SERUM 0.52 MG/DL (0.60-1.30)
[2022-08-09] MEDS: inSUlin ASPART (NovoLOG) 1 UNIT/0.01 ML (CHARGE PER UNIT) SC SCH ×2 (16:31→20:57)
--- NOTE | 2022-08-09 20:11 | Tele-ICU Progress Note ---
Progress Note Pt with COVID + , on RA, DKA. CO2 till 11, AG 9 AND k AT 2.9. Receiving KCL and Insulin drip held for hypoglycemia and hypokalemia. Will get BMP and Mag after the K rider as see if Insulin can be restarte until CO2 is > 15. No CASEY. D/W the bedside nurse , Continue D5 1/2 ns AT 200 ML/HR Interventions Minor-Other: DKA Focused Exam Lactate Level 08/08/22 08:25: Lactic Acid Level 1.71 Height, Weight, BMI Height: '" Weight: lbs. oz. kg; 27.21 BMI Method: DALLIN WANG MD Aug 09, 2022 20:11
[2022-08-09 21:35] LABS: CALCIUM 8.5 MG/DL (8.5-10.1); CREATININE SERUM 0.54 MG/DL (0.60-1.30); MAGNESIUM 1.8 MG/DL (1.6-2.4); POTASSIUM 3.6 MMOL/L (3.6-5.0)
[2022-08-10] MEDS: NOREPINEPHRINE 8 MG/250 ML 250 ML IV SCH ×2 (00:09→18:44)
[2022-08-10 01:20] LABS: CHLORIDE 116 MMOL/L (98-107); POTASSIUM 2.7 MMOL/L (3.6-5.0); SODIUM 138 MMOL/L (135-145)
[2022-08-10 01:22] LABS: GLUCOSE 103 MG/DL (70-105)
[2022-08-10 01:23] LABS: CARBON DIOXIDE 13 MMOL/L (21-32)
[2022-08-10 01:26] LABS: CREATININE SERUM 0.52 MG/DL (0.60-1.30); GFR ESTIMATED 108
[2022-08-10 01:27] LABS: BUN/CREATININE RATIO 13
[2022-08-10 01:28] LABS: MAGNESIUM 1.7 MG/DL (1.6-2.4)
[2022-08-10 01:45] LABS: PHOSPHORUS < 0.7 MG/DL (2.3-4.7)
--- NOTE | 2022-08-10 01:54 | Progress Note ---
Standard Progress Note Progress Notes/Assess & Plan Date Seen by a Provider: Aug 10, 2022 Time Seen by a Provider: 01:54 Progress/Assessment & Plan Pt admitted for DKA, has persistent low phosphate and potassium, will replace both 40 Meq KPhos over 4 hours MD CHINO Mortensen JOSEPH K MD Aug 10, 2022 01:54
[2022-08-10] MEDS: D5 1/2 NS 1000 ML IV SOLUTION 1,000 ML IV SCH ×5 (02:22→21:13)
[2022-08-10] MEDS: POTASSIUM CL 10MEQ/50ML IVPB 50 ML IV SCH ×7 (02:23→21:13)
[2022-08-10] MEDS: 1/2 NS IV SOLUTION 1,000 ML IV SCH ×6 (02:23→22:21)
[2022-08-10] MEDS ORDERED: POTASSIUM PHOSPHATE INJ 30 MM in NS (IVPB) 250 ML IV ONE ×2 (03:00→11:45)
[2022-08-10 05:13] LABS: BASOPHILS % (AUTO) 0 % (0-10); EOSINOPHILS # (AUTO) 0.1 10^3/uL (0.0-0.3); EOSINOPHILS % (AUTO) 1 % (0-10); HEMATOCRIT 36 % (35-52); HEMOGLOBIN 13.1 g/dL (11.5-16.0); LYMPHOCYTES # (AUTO) 0.9 10^3/uL (1.0-4.0); LYMPHOCYTES % (AUTO) 16 % (12-44); MEAN CORPUSCULAR HEMOGLOBIN 28 pg (25-34); MEAN CORPUSCULAR HGB CONC 37 g/dL (32-36); MEAN CORPUSCULAR VOLUME 76 fL (80-99); MONOCYTES # (AUTO) 0.4 10^3/uL (0.0-1.0); MONOCYTES % (AUTO) 6 % (0-12); NEUTROPHILS # (AUTO) 4.4 10^3/uL (1.8-7.8); NEUTROPHILS % (AUTO) 76 % (42-75); PLATELET COUNT 183 10^3/uL (130-400); WHITE BLOOD COUNT 5.8 10^3/uL (4.3-11.0)
[2022-08-10 05:39] LABS: ALBUMIN 2.6 GM/DL (3.2-4.5); BILIRUBIN,TOTAL 0.4 MG/DL (0.1-1.0); CREATININE SERUM 0.54 MG/DL (0.60-1.30); MAGNESIUM 1.9 MG/DL (1.6-2.4); PHOSPHORUS 1.2 MG/DL (2.3-4.7); POTASSIUM 2.9 MMOL/L (3.6-5.0); TOTAL PROTEIN 5.2 GM/DL (6.4-8.2)
[2022-08-10] MEDS: MAGNESIUM 1 GM/100 ML IVPB 100 ML IV SCH ×3 (05:49→13:12)
[2022-08-10] MEDS: inSUlin ASPART (NovoLOG) 1 UNIT/0.01 ML (CHARGE PER UNIT) SC SCH ×4 (05:51→21:14)
[2022-08-10] MEDS: KCL 20 MEQ TAB (K-DUR) PO SCH ×4 (05:54→11:12)
[2022-08-10] MEDS: MULTIVIT W/MINERALS TAB (THERAGRAN M) PO SCH (06:06)
[2022-08-10 06:51] LABS: ABG BASE EXCESS -8.6 MMOL/L (-2.5-2.5); ABG OXYGEN SATURATION 100 % (94-100); ABG PCO2 27 MMHG (35-45); ABG PH 7.38 (7.37-7.43); ABG PO2 92 MMHG (79-93); ABG TCO2 16.6 MMOL/L (21.0-31.0)
[2022-08-10 06:54] LABS: ALLENS TEST YES-POS
[2022-08-10 06:55] LABS: INSPIRED O2 RA; PATIENT TEMP 36.3; VENTILATOR NO
[2022-08-10] MEDS: DOCUSATE SODIUM 100 MG (COLACE) CAP PO SCH ×2 (07:42→21:19)
[2022-08-10] MEDS ORDERED: KCL 20 MEQ TAB (K-DUR) PO ONE ×2 (08:00→10:00)
[2022-08-10] MEDS: PANTOPRAZOLE 40 MG (PROTONIX) VIAL IV SCH (08:12)
[2022-08-10] MEDS ORDERED: ALEN70TA80 PO (10:01)
[2022-08-10 10:07] LABS: CALCIUM 8.1 MG/DL (8.5-10.1); CREATININE SERUM 0.56 MG/DL (0.60-1.30); MAGNESIUM 1.6 MG/DL (1.6-2.4); POTASSIUM 3.2 MMOL/L (3.6-5.0)
[2022-08-10] MEDS: SODIUM BICARBONATE 650 MG TABLET PO SCH ×3 (10:08→21:13)
--- NOTE | 2022-08-10 10:58 | Tele-ICU Progress Note ---
Subjective Date Seen by a Provider: Aug 10, 2022 Time Seen by a Provider: 10:53 Subjective/Events-last exam she continues to improve but still has low co2,ag improved. po4 and k are low, which are being replaced. Review of Systems ROS PER RN Sepsis Event Evaluation Height, Weight, BMI Height: '" Weight: lbs. oz. kg; 28.76 BMI Method: Focused Exam Lactate Level 08/08/22 08:25: Lactic Acid Level 1.71 Exam Exam Patient acknowledged, consented, and participated in this virtual visit which was conducted using real time audio/video Vital Signs Date Time Temp Pulse Resp B/P (MAP) Pulse Ox O2 Delivery O2 Flow Rate FiO2 08/10/22 10:00 108 15 145/84 (104) 100 Room Air 08/10/22 09:00 110 23 156/87 (110) 99 Room Air 08/10/22 08:00 98 Room Air 08/10/22 08:00 107 23 133/83 (100) 98 Room Air 08/10/22 08:00 37.1 08/10/22 07:00 110 08/10/22 07:00 110 39 135/77 (96) 98 Room Air 08/10/22 06:22 99 Room Air 08/10/22 06:00 110 16 145/100 (117) 98 Room Air 08/10/22 05:00 112 28 130/79 (100) 98 Room Air 08/10/22 04:00 97 Room Air 08/10/22 04:00 102 22 125/76 (89) 98 Room Air 08/10/22 03:00 104 27 127/70 (89) 98 Room Air 08/10/22 02:00 111 30 135/78 (97) 97 Room Air 08/10/22 01:00 112 08/10/22 01:00 112 33 138/81 (100) 98 Room Air 08/10/22 00:09 101 131/72 08/10/22 00:07 99 Room Air 08/10/22 00:00 112 29 128/76 (93) 98 Room Air 08/09/22 23:25 36.6 Room Air 08/09/22 23:00 112 25 127/71 (89) 97 Room Air 08/09/22 22:00 116 34 147/82 (103) 98 Room Air 08/09/22 21:00 110 28 130/78 (95) 98 Room Air 08/09/22 20:00 98 Room Air 08/09/22 20:00 112 28 146/87 (106) 100 Room Air 08/09/22 19:35 36.2 Room Air 08/09/22 19:00 101 08/09/22 19:00 101 33 137/75 (95) 98 Room Air 08/09/22 18:00 103 26 118/68 (91) 97 Room Air 08/09/22 17:00 110 33 121/68 (79) 98 Room Air 08/09/22 16:00 97 Room Air 08/09/22 16:00 104 26 118/77 (89) 100 Room Air 08/09/22 15:19 36.2 08/09/22 15:00 98 28 126/69 (90) 99 Room Air 08/09/22 14:00 98 33 121/92 (106) 99 Room Air 08/09/22 13:00 89 30 94/64 (76) 98 Room Air 08/09/22 13:00 101 08/09/22 12:00 92 29 104/67 (82) 98 Room Air 08/09/22 12:00 97 Room Air 08/09/22 12:00 35.9 08/09/22 11:00 96 27 113/72 (81) 100 Room Air I & O 08/10/22 07:00 Intake Total 3900 ml Output Total 4925 ml Balance -1025 ml Height & Weight Height: '" Weight: lbs. oz. kg; 28.76 BMI Method: General Appearance: No Apparent Distress, WD/WN, Chronically ill HEENT: PERRL/EOMI, Normal ENT Inspection, Pharynx Normal, Moist Mucous Membranes Neck: Full Range of Motion, Normal Inspection, Non Tender Respiratory: Lungs Clear, Normal Breath Sounds Cardiovascular: Regular Rate, Rhythm Capillary Refill: Less Than 3 Seconds Extremity: Normal Capillary Refill, Normal Inspection, Normal Range of Motion, Non Tender, No Calf Tenderness, No Pedal Edema Neurologic/Psychiatric: Alert, Oriented x3, No Motor/Sensory Deficits, Normal Mood/Affect Skin: Normal Color, Warm/Dry Lymphatic: No Adenopathy Other comments PE PER RN Results Lab Laboratory Tests 08/08/22 14:20 08/08/22 19:30 08/09/22 00:25 08/09/22 05:21 08/09/22 14:20 08/09/22 21:10 08/10/22 01:01 08/10/22 04:53 08/10/22 09:30 Assessment/Plan Assessment/Plan 1. DKA IMROVING. 2. MULTIPLE ELECTROLYTE ABNORMALITIES. 3. COVID-19 POSITIVE. NOT SYMPTOMATIC PLAN. 1. CONTINUE INSULIN DRIP ATLEST UNTIL CO2 IMPROVES TO ABOE 18. 2. REPLACE K, PO4, MAGNESIUM 3. WILL GET CXR 4. DVT PROPHYLAXIS Critical Care: Critically Ill Patient Time spent with patient (mins): 15 DENISE VEGA MD Aug 10, 2022 10:58
[2022-08-10] MEDS: ENOXAPARIN 40 MG/0.4 ML (LOVENOX) SYR SC SCH (11:14)
--- NOTE | 2022-08-10 11:21 | Diagnostic Imaging Report ---
INDICATION: Dyspnea. TECHNIQUE: A frontal chest was obtained at 11:14 AM. FINDINGS: The heart and mediastinal silhouette are normal in appearance. There is some mild right basilar atelectasis. There is no consolidation, pneumothorax, or pleural fluid. IMPRESSION: Mild right basilar atelectasis. No overt consolidation or pleural fluid. Dictated by: Dictated on workstation # [id number]
--- NOTE | 2022-08-10 11:27 | Physical Therapy Evaluation ---
PT Evaluation-General Medical Diagnosis Admission Date Aug 08, 2022 at 08:33 Medical Diagnosis: Covid/DKA Onset Date: Aug 08, 2022 Therapy Diagnosis Therapy Diagnosis: generalized weakness/debility Precautions Precautions/Isolations: Standard Precautions Referral Physician: Pedro Reason for Referral: Evaluation/Treatment Medical History Pertinent Medical History: DM Current History ER secondary to generalized weakness/vomiting Reviewed History: Yes Social History Home: Single Level Current Living Status: Spouse Prior Prior Level of Function SCALE: Activities may be completed with or without assistive devices. 7-Wxqgwtojmc-xaohsgs completes the activity by him/herself with no assistance from a helper. 5-Set-up or Clean-up Assistance-helper sets up or cleans up; patient completes activity. [place] assists only prior to or following the activity. 4-Supervision or Touching Assistance-helper provides verbal cues and/or touching/steadying and/or contact guard assistance as patient completes activity. Assistance may be provided throughout the activity or intermittently. 3-Partial/Moderate Assistance-helper does LESS THAN HALF the effort. [place] lifts, holds or supports trunk or limbs, but provides less than half the effort. 2-Substantial/Maximal Assistance-helper does MORE THAN HALF the effort. [place] lifts or holds trunk or limbs and provides more than half the effort. 7-Dizhnyddj-ocvthn does ALL the effort. Patient does none of the effort to complete the activity. Or, the assistance of 2 or more helpers is required for the patient to complete the activity. If activity was not attempted, code reason: 7-Patient Refused. 9-Not Applicable-not attempted and the patient did not perform the activity before the current illness, exacerbation or injury. 10-Not Attempted due to Environmental Limitations-(lack of equipment, weather restraints, etc.). 88-Not Attempted due to Medical Conditions or Safety Concerns. Bed Mobility: 6 Transfers (B,C,W/C): 6 Gait: 6 Stairs: 6 Indoor Mobility (Ambulation): Independent Stairs: Independent Prior Devices Use: None PT Evaluation-Current Subjective Patient agrees to PT. Objective Patient Orientation: Normal For Age Attachments: Dawn Catheter, IV ROM/Strength ROM Lower Extremities bilateral LE WFL Strength Lower Extremities 4-/5 grossly bilateral LE all planes Integumentary/Posture Bowel Incontinence: Yes Bladder Incontinence: Dawn Cath Posture WFL Neuromuscular (Tone, Coordination, Reflexes) grossly intact Sensory Vision: Functional Hearing: Functional Transfers Roll Left to Right (QC): 6 Sit to Lying (QC): 6 Lying to Sitting/Side of Bed(Q: 6 Sit to Stand (QC): 4 Chair/Rvl-mz-Lmoqp Xfer(QC): 4 Gait Mode of Locomotion: Walk Anticipated Mode of Locomotion: Walk Walk 10 feet (QC): 4 Walk 50 ft with 2 Turns(QC): 88 Gait Assistive Device: FWW Comments/Gait Description safe and functional with no deviation Balance Sitting Static: Normal Sitting Dynamic: Normal Standing Static: Fair Standing Dynamic: Fair Assessment/Needs Patient will benefit from skilled PT to address functional strength and mobility to improve current LOF. Rehab Potential: Fair PT Cake Knocker Goals [facility] Goals PT Cake Knocker Goals Time Frame: Aug 29, 2022 Roll Left & Right (QC): 6 Sit to Lying (QC): 6 Lying-Sitting on Side/Bed(QC): 6 Sit to Stand (QC): 6 Chair/Byr-pv-Xajzs Xfer(QC): 6 Toilet Transfer (QC): 6 Walk 10 feet (QC): 6 Walk 50ft with 2 Turns (QC): 6 Walk 150 ft (QC): 6 PT Plan Problem List Problem List: Activity Tolerance, Functional Strength, Safety, Balance, Gait, Transfer Treatment/Plan Treatment Plan: Continue Plan of Care Treatment Plan: Education, Functional Activity Tiera, Functional Strength, Gait, Safety, Therapeutic Exercise, Transfers Treatment Duration: Aug 29, 2022 Frequency: 6 times per week Estimated Hrs Per Day: .25 hour per day Patient and/or Family Agrees t: Yes Time Time In: 1043 Time Out: 1100 DATE: Aug 10, 2022 Total Billed Treatment Time: 17 Total Billed Treatment 1 visit [facility] 17 min JAZZ BENSON PT Aug 10, 2022 11:27
--- NOTE | 2022-08-10 11:52 | Progress Note - Hospitalist ---
CASS ORTIZ 08/10/22 1152: Subjective HPI/CC On Admission Chief complaint: COVID with DKA HPI: This is a 57-year-old female who has a history of diabetes who presented to the [place] ER with altered mental status. She was found to have COVID. DKA was also diagnosed. Patient is unable to provide any details. Subjective/Events-last exam Radha Shelton is a 57y/o female who was admitted for DKA and Covid. Today she is lying in bed comfortably at the time of my visit. She reports feeling well. She has no pain, cough, or shortness of breath. She states her mental function is much improved since her ER visit and she feels closer to normal. She is draining clear/yellow urine via catheter without issue. Nurse reports he had diarrhea overnight with no dark coloration or blood. Her N/V are improved as well. Her sugars were 84, 103, and 148 overnight. Closing of her anion gap has been noted. Review of Systems General: No Chills HEENT: No Head Aches Pulmonary: No Dyspnea, No Cough Cardiovascular: No: Chest Pain, Orthopnea Gastrointestinal: Nausea (improved); No: Vomiting, Abdominal Pain Neurological: No: Confusion Focused Exam Lactate Level 08/08/22 08:25: Lactic Acid Level 1.71 Objective Exam Vital Signs Vital Signs Date Time Temp Pulse Resp B/P (MAP) Pulse Ox O2 Delivery O2 Flow Rate FiO2 08/10/22 11:00 112 24 129/82 (98) 99 Room Air 08/10/22 08:00 37.1 08/08/22 11:01 21 Capillary Refill : Less Than 3 Seconds General Appearance: No Apparent Distress, WD/WN HEENT: PERRL/EOMI Respiratory: Chest Non Tender, Lungs Clear, No Accessory Muscle Use Cardiovascular: No Murmur, Tachycardia Gastrointestinal: Normal Bowel Sounds, Non Tender, Soft Extremity: No Pedal Edema Neurologic/Psychiatric: Alert, Oriented x3 Skin: Normal Color, Warm/Dry Results/Procedures Lab Laboratory Tests 08/09/22 14:20 08/09/22 21:10 08/10/22 01:01 08/10/22 04:53 08/10/22 09:30 Patient resulted labs reviewed. Radiology NAME: RADHA SHELTON J MED REC#: [id number] PT STATUS: ADM IN : 1965 PHYSICIAN: DENISE VEGA MD ADMIT DATE: 08/08/22/ICU Draft Date of Exam:08/10/22 CHEST 1 VIEW, AP/PA ONLY INDICATION: Dyspnea. TECHNIQUE: A frontal chest was obtained at 11:14 AM. FINDINGS: The heart and mediastinal silhouette are normal in appearance. There is some mild right basilar atelectasis. There is no consolidation, pneumothorax, or pleural fluid. IMPRESSION: Mild right basilar atelectasis. No overt consolidation or pleural fluid. Dictated on workstation # [id number] Dict: 08/10/22 1117 Trans: 08/10/22 1121 [id number] Interpreted by: DEVANG DE OLIVEIRA MD Electronically signed by: Assessment/Plan Assessment and Plan Assess & Plan/Chief Complaint DKA Anion gap 11. Sugars mid 100s to mid 200s today. On insulin drip and D5. Bicarb is still low, will start sodium bicarb. On abg pH is improving, 7.38 today. Covid Asymptomatic, monitor WBC and vitals closely, this is the likely trigger of her DKA Electrolyte abnormalities K at 2.9 this AM. Phosphorus at 1.0. Both are being replaced HTN Systolic pressures have averaged in the 140s today. This is acceptable while her DKA and electrolytes are being managed. Continue to monitor. RENETTA DIAS DO 08/11/22 0458: Supervisory-Addendum Brief Verification & Attestation Participated in pt care: history, MDM, physical Personally performed: exam, history, MDM, supervision of care Care discussed with: Medical Student Procedures: n/a Results interpretation: Verified all documentation Verification and Attestation of Medical Student E/M Service A medical student performed and documented this service in my presence. I reviewed and verified all information documented by the medical student and made modifications to such information, when appropriate. I personally performed the physical exam and medical decision making. Renetta Dias, Aug 11, 2022,04:57 CASS ORTIZ Aug 10, 2022 11:52 RENETTA DIAS DO Aug 11, 2022 04:58
[2022-08-10 13:48] LABS: CALCIUM 8.4 MG/DL (8.5-10.1); CREATININE SERUM 0.57 MG/DL (0.60-1.30); MAGNESIUM 2.5 MG/DL (1.6-2.4); PHOSPHORUS 1.2 MG/DL (2.3-4.7); POTASSIUM 3.4 MMOL/L (3.6-5.0)
--- NOTE | 2022-08-10 15:27 | Occupational Therapy Eval ---
OT Evaluation-General/PLF Medical Diagnosis Admission Date Aug 08, 2022 at 08:33 Medical Diagnosis: Covid/DKA Onset Date: Aug 08, 2022 Therapy Diagnosis Therapy Diagnosis: weaknes, delayed responses Precautions Precautions/Isolations: Airborne Isolation, Standard Precautions Weight Bear Status Weight Bearing Restriction: Weight Bearing/Tolerated Referral Physician: Pedro Lowe Reason: Activity Tolerance, Self Care, Evaluation/Treatment, Strengthening/ROM Medical History Pertinent Medical History: DM Additional Medical History dehydration Current History ER secondary to generalized weakness/vomiting Reviewed History: Yes Social History Home: Single Level Current Living Status: Spouse ADL-Prior Level of Function SCALE: Activities may be completed with or without assistive devices. 3-Dtuunggwsw-tvltpdg completes the activity by him/herself with no assistance from a helper. 5-Set-up or Clean-up Assistance-helper sets up or cleans up; patient completes activity. [place] assists only prior to or following the activity. 4-Supervision or Touching Assistance-helper provides verbal cues and/or touching/steadying and/or contact guard assistance as patient completes activity. Assistance may be provided throughout the activity or intermittently. 3-Partial/Moderate Assistance-helper does LESS THAN HALF the effort. [place] lifts, holds or supports trunk or limbs, but provides less than half the effort. 2-Substantial/Maximal Assistance-helper does MORE THAN HALF the effort. [place] lifts or holds trunk or limbs and provides more than half the effort. 0-Cbeplgeug-bdamqt does ALL the effort. Patient does none of the effort to complete the activity. Or, the assistance of 2 or more helpers is required for the patient to complete the activity. If activity was not attempted, code reason: 7-Patient Refused. 9-Not Applicable-not attempted and the patient did not perform the activity before the current illness, exacerbation or injury. 10-Not Attempted due to Environmental Limitations-(lack of equipment, weather restraints, etc.). 88-Not Attempted due to Medical Conditions or Safety Concerns. Self Care: Independent Functional Cognition: Independent Drive Self: Yes OT Current Status Subjective Laying supine in bed, present Mental Status/Objective Patient Orientation: Person, Place, Time, Situation Attachments: Dawn Catheter, IV Current Upper Extremity ROM BUE ROM WFLS Upper Extremity Strength +3/5 grossly, reports being tired this afternoon ADL-Treatment Eating (QC): 6 (Opens [place], uses straw) Oral Hygiene (QC): 5 Shower/Bathe Self (QC): 7 (declined) Upper Body Dressing (QC): 3 Lower Body Dressing (QC): 3 On/Off Footwear (QC): 5 Toileting Hygiene (QC): 3 Other Treatments Instruction in isometric BUE ther ex. Education OT Patient Education: Correct positioning, Disease process, Energy cons ervation, Exercise program, Modified ADL techniques, Progress toward Goal/Update tx plan, Purpose of tx/functional activities, Reviewed precautions, Rehab process, Safety issues, Transfer techniques, Use of adapted equipment Teaching Recipient: Patient, Family Teaching Methods: Demonstration, Discussion Response to Teaching: Verbalize Understanding, Return Demonstration, Reinforcement Needed OT Care Home Goals Care Home Goals Time Frame: Aug 22, 2022 Eating (QC): 6 Oral Hygiene (QC): 6 Toileting Hygiene (QC): 6 Shower/Bathe Self (QC): 6 Upper Body Dressing (QC): 6 Lower Body Dressing (QC): 6 On/Off Footwear (QC): 6 1=Demonstrate adherence to instructed precautions during ADL tasks. 2=Patient will verbalize/demonstrate understanding of assistive dev ices/modifications for ADL. 3=Patient will improve strength/tolerance for activity to enable patient to perform ADL's. OT Education/Plan Problem List/Assessment Assessment: Decreased Activ Tolerance, Decreased UE Strength, Impaired Cognition, Impaired Coordination, Impaired Funct Balance, Impaired I ADL's, Impaired Self-Care Skills Discharge Recommendations Plan/Recommendations: Continue POC Therapy Discharge Recommendati: Post Acute OT Treatment Plan/Plan of Care Treatment,Training & Education: Yes Patient would benefit from OT for education, treatment and training to promote independence in ADL's, mobility, safety and/or upper extremity function for ADL's. Plan of Care: ADL Retraining, Cognitive Retraining (slow processing commands and organization of thought), Concurrent Therapy, Functional Mobility, Group Exercise/Act as Ind, UE Funct Exercise/Act Treatment Duration: Aug 22, 2022 Frequency: 3 times per week (3-5 times per week) Estimated Hrs Per Day: .25 hour per day Rehab Potential: Fair Time Start Time: 15:03 Stop Time: 15:32 DATE: Aug 10, 2022 Total Time Billed (hr/min): 31 Billed Treatment Time 1 EVM 1, EX 1 29 min ABNER CADENA OT Aug 10, 2022 15:27
[2022-08-10 17:28] LABS: CALCIUM 8.2 MG/DL (8.5-10.1)
[2022-08-10 17:32] LABS: CREATININE SERUM 0.55 MG/DL (0.60-1.30); PHOSPHORUS 1.6 MG/DL (2.3-4.7)
[2022-08-10 17:35] LABS: MAGNESIUM 2.4 MG/DL (1.6-2.4)
[2022-08-10 21:53] LABS: CALCIUM 8.3 MG/DL (8.5-10.1); CREATININE SERUM 0.51 MG/DL (0.60-1.30); MAGNESIUM 2.1 MG/DL (1.6-2.4); PHOSPHORUS 1.1 MG/DL (2.3-4.7); POTASSIUM 3.5 MMOL/L (3.6-5.0)
[2022-08-11] MEDS: POTASSIUM CL 10MEQ/50ML IVPB 50 ML IV SCH ×6 (01:32→11:16)
[2022-08-11] MEDS: D5 1/2 NS 1000 ML IV SOLUTION 1,000 ML IV SCH ×3 (01:33→11:19)
[2022-08-11 01:52] LABS: POTASSIUM 3.5 MMOL/L (3.6-5.0)
[2022-08-11 01:53] LABS: CALCIUM 8.1 MG/DL (8.5-10.1)
[2022-08-11 01:57] LABS: PHOSPHORUS 1.1 MG/DL (2.3-4.7)
[2022-08-11 01:58] LABS: CREATININE SERUM 0.5 MG/DL (0.60-1.30)
[2022-08-11 02:00] LABS: MAGNESIUM 2.2 MG/DL (1.6-2.4)
[2022-08-11] MEDS ORDERED: POTASSIUM PHOSPHATE INJ 30 MM in NS (IVPB) 250 ML IV NR (02:00)
[2022-08-11] MEDS: 1/2 NS IV SOLUTION 1,000 ML IV SCH ×3 (02:29→07:33)
[2022-08-11 04:59] LABS: ABG BASE EXCESS -3.5 MMOL/L (-2.5-2.5); ABG OXYGEN SATURATION 99 % (94-100); ABG PCO2 32 MMHG (35-45); ABG PH 7.41 (7.37-7.43); ABG PO2 79 MMHG (79-93); ABG TCO2 21.5 MMOL/L (21.0-31.0)
[2022-08-11 05:00] LABS: ALLENS TEST YES-POS; INSPIRED O2 36.3; PATIENT TEMP 36.3; VENTILATOR NO
[2022-08-11 06:01] LABS: BASOPHILS % (AUTO) 0 % (0-10); EOSINOPHILS # (AUTO) 0.1 10^3/uL (0.0-0.3); EOSINOPHILS % (AUTO) 1 % (0-10); HEMATOCRIT 31 % (35-52); HEMOGLOBIN 11.1 g/dL (11.5-16.0); LYMPHOCYTES # (AUTO) 1.7 10^3/uL (1.0-4.0); LYMPHOCYTES % (AUTO) 28 % (12-44); MEAN CORPUSCULAR HEMOGLOBIN 28 pg (25-34); MEAN CORPUSCULAR HGB CONC 36 g/dL (32-36); MEAN CORPUSCULAR VOLUME 77 fL (80-99); MONOCYTES # (AUTO) 0.4 10^3/uL (0.0-1.0); MONOCYTES % (AUTO) 6 % (0-12); NEUTROPHILS # (AUTO) 3.9 10^3/uL (1.8-7.8); NEUTROPHILS % (AUTO) 64 % (42-75); PLATELET COUNT 219 10^3/uL (130-400); WHITE BLOOD COUNT 6.2 10^3/uL (4.3-11.0)
[2022-08-11] MEDS: MULTIVIT W/MINERALS TAB (THERAGRAN M) PO SCH (06:16)
[2022-08-11] MEDS: inSUlin ASPART (NovoLOG) 1 UNIT/0.01 ML (CHARGE PER UNIT) SC SCH ×4 (06:16→21:03)
[2022-08-11] MEDS: KCL 20 MEQ TAB (K-DUR) PO SCH (06:16)
[2022-08-11 06:17] LABS: ALBUMIN 2.5 GM/DL (3.2-4.5); BILIRUBIN,TOTAL 0.3 MG/DL (0.1-1.0); CREATININE SERUM 0.48 MG/DL (0.60-1.30); MAGNESIUM 1.9 MG/DL (1.6-2.4); PHOSPHORUS 2.6 MG/DL (2.3-4.7); POTASSIUM 3.7 MMOL/L (3.6-5.0); TOTAL PROTEIN 4.9 GM/DL (6.4-8.2)
[2022-08-11] MEDS: MAGNESIUM 1 GM/100 ML IVPB 100 ML IV SCH (06:50)
[2022-08-11] MEDS: DOCUSATE SODIUM 100 MG (COLACE) CAP PO SCH ×2 (07:32→21:03)
--- NOTE | 2022-08-11 08:44 | Physical Therapy Daily Note ---
PT Daily Note-Current Subjective Patient reports she is feeling better and agrees to PT. Pain Section J - Health Conditions 1. Rarely or not at all 2. Occasionally 3. Frequently 4. Almost constantly 8. Unable to answer Pain Effect on Sleep: 1 Pain Interference with Therapy: 1 Pain Interference w/Day-to-Day: 1 Mental Status Patient Orientation: Normal For Age Attachments: IV Transfers SCALE: Activities may be completed with or without assistive devices. 4-Uajczckywi-hbcsppm completes the activity by him/herself with no assistance from a helper. 5-Set-up or Clean-up Assistance-helper sets up or cleans up; patient completes activity. [place] assists only prior to or following the activity. 4-Supervision or Touching Assistance-helper provides verbal cues and/or touching/steadying and/or contact guard assistance as patient completes activity. Assistance may be provided throughout the activity or intermittently. 3-Partial/Moderate Assistance-helper does LESS THAN HALF the effort. [place] lifts, holds or supports trunk or limbs, but provides less than half the effort. 2-Substantial/Maximal Assistance-helper does MORE THAN HALF the effort. [place] lifts or holds trunk or limbs and provides more than half the effort. 7-Recolearj-kieokf does ALL the effort. Patient does none of the effort to complete the activity. Or, the assistance of 2 or more helpers is required for the patient to complete the activity. If activity was not attempted, code reason: 7-Patient Refused. 9-Not Applicable-not attempted and the patient did not perform the activity before the current illness, exacerbation or injury. 10-Not Attempted due to Environmental Limitations-(lack of equipment, weather restraints, etc.). 88-Not Attempted due to Medical Conditions or Safety Concerns. Sit to Stand (QC): 5 Gait Training Distance: 200' in room Walk 10 feet (QC): 5 Walk 50 ft with 2 Turns(QC): 5 Walk 150 ft (QC): 5 Gait Assistive Device: FWW safe and functional with no deviation Exercises Seated Therapy Exercises: Ankle pumps, Long arc quads, Hip flexion Seated Reps: 15 Assessment Patient much improved on this date. Nursing instructed to ambulate with patient PRN in room. PT Custodial Goals Custodial Goals PT Custodial Goals Time Frame: Aug 29, 2022 Roll Left & Right (QC): 6 Sit to Lying (QC): 6 Lying-Sitting on Side/Bed(QC): 6 Sit to Stand (QC): 6 Chair/Mnd-vm-Hrbzq Xfer(QC): 6 Toilet Transfer (QC): 6 Walk 10 feet (QC): 6 Walk 50ft with 2 Turns (QC): 6 Walk 150 ft (QC): 6 PT Plan Treatment/Plan Treatment Plan: Continue Plan of Care Treatment Plan: Education, Functional Activity Tiera, Functional Strength, Gait, Safety, Therapeutic Exercise, Transfers Treatment Duration: Aug 29, 2022 Frequency: 6 times per week Estimated Hrs Per Day: .25 hour per day Patient and/or Family Agrees t: Yes Time Time In: 740 Time Out: 758 DATE: Aug 11, 2022 Total Billed Treatment Time: 18 Total Billed Treatment 1 visit FA 18 min JAZZ BENSON PT Aug 11, 2022 08:44
[2022-08-11] MEDS: PANTOPRAZOLE 40 MG (PROTONIX) VIAL IV SCH (09:06)
[2022-08-11] MEDS: SODIUM BICARBONATE 650 MG TABLET PO SCH ×3 (09:06→21:03)
[2022-08-11] MEDS: ENOXAPARIN 40 MG/0.4 ML (LOVENOX) SYR SC SCH (10:08)
[2022-08-11 10:11] LABS: POTASSIUM 3.8 MMOL/L (3.6-5.0)
[2022-08-11 10:12] LABS: CALCIUM 8.2 MG/DL (8.5-10.1)
[2022-08-11 10:16] LABS: CREATININE SERUM 0.52 MG/DL (0.60-1.30); PHOSPHORUS 2.3 MG/DL (2.3-4.7)
[2022-08-11 10:19] LABS: MAGNESIUM 2.1 MG/DL (1.6-2.4)
--- NOTE | 2022-08-11 11:02 | Progress Note - Hospitalist ---
CASS ORTIZ 08/11/22 1102: Subjective HPI/CC On Admission Chief complaint: COVID with DKA HPI: This is a 57-year-old female who has a history of diabetes who presented to the [facility] with altered mental status. She was found to have COVID. DKA was also diagnosed. Patient is unable to provide any details. Subjective/Events-last exam Radha Cain is a 57y/o female admitted for DKA and found to be Covid positive. She is doing well this morning. She denies any pain or issues overnight. She denies any shortness of breath or cough related to her Covid infection. She is draining yellow urine via catheter, RN reports she is able to ambulate and is requiring emptying of her rivera bag frequently. Will dc her rivera today. She is also having several episodes of watery diarrhea. C diff studies were negative. Her sugars have been under good control in the mid to upper 100s. She is alert and pleasantly responsive to all of my questions. She participated in PT earlier this morning without any issue. Review of Systems General: No Chills HEENT: No Head Aches Pulmonary: No Dyspnea, No Cough Cardiovascular: No: Chest Pain, Lt Headedness Gastrointestinal: Diarrhea; No: Abdominal Pain Genitourinary: Other (rivera in place, dc today) Neurological: No: Confusion Objective Exam Vital Signs Vital Signs Date Time Temp Pulse Resp B/P (MAP) Pulse Ox O2 Delivery O2 Flow Rate FiO2 08/11/22 10:00 105 20 142/76 (98) 99 Room Air 08/11/22 08:00 36.4 08/10/22 19:18 0.00 08/08/22 11:01 21 Capillary Refill : Less Than 3 Seconds General Appearance: No Apparent Distress, WD/WN HEENT: PERRL/EOMI Respiratory: Chest Non Tender, Lungs Clear, No Accessory Muscle Use Cardiovascular: Regular Rate, Rhythm, No Murmur Gastrointestinal: Normal Bowel Sounds, Non Tender, Soft Rectal: Deferred Neurologic/Psychiatric: Alert, Oriented x3 Skin: Normal Color, Warm/Dry Results/Procedures Lab Laboratory Tests 08/10/22 13:15 08/10/22 17:05 08/10/22 21:20 08/11/22 01:14 08/11/22 05:19 08/11/22 09:19 Patient resulted labs reviewed. Assessment/Plan Assessment and Plan Assess & Plan/Chief Complaint DKA Anion gap 8. Sugars mid/high 100s today. On insulin drip and D5. Started sodium bicarb yesterday. Abg pH is improving, 7.41, 32 CO2, 79 O2, 20 HCO3 today. Levemir 10 units SQ today. Planning on moving to step down today. Covid Asymptomatic, monitor WBC and vitals closely, this is the likely trigger of her DKA Electrolyte abnormalities K at 3.7 this AM improved from 2.9 yesterday. Phosphorus at 2.3 from 1.0 yesterday. Both are being replaced as needed HTN Systolic pressure 151/88 today. This is acceptable while her DKA and electrolytes are being managed. Continue to monitor. Diarrhea Cdiff studies negative. Continue to monitor electrolytes and replace as needed. Continue IVF and consider loperamide RENETTA DIAS DO 08/12/22 0506: Supervisory-Addendum Brief Verification & Attestation Participated in pt care: history, MDM, physical Personally performed: exam, history, MDM, supervision of care Care discussed with: Medical Student Procedures: n/a Results interpretation: Verified all documentation Verification and Attestation of Medical Student E/M Service A medical student performed and documented this service in my presence. I reviewed and verified all information documented by the medical student and made modifications to such information, when appropriate. I personally performed the physical exam and medical decision making. Renetta Dais, Aug 12, 2022,05:05 CASS ORTIZ Aug 11, 2022 11:02 RENETTA DIAS DO Aug 12, 2022 05:06
--- NOTE | 2022-08-11 11:09 | Tele-ICU Progress Note ---
Subjective Date Seen by a Provider: Aug 11, 2022 Time Seen by a Provider: 11:08 Subjective/Events-last exam (Tele-ICU Physician , Progress Note ) Service provided via interactive audio and video telecommunications E-CARE system to a patient admitted to ICU bed in [facility]. Patient is seen today due to persistent need of ICU care Available chart/ vitals / labs / Images reviewed Video assessment done using teleICU camera, rest of exam as per RN Discussed with RN Events overnight : Afebrile hemodynamically stable Pressors- no Consultants: Hospital course: (08/08) 57yF admitted from [facility] ED for DKA, Covid (+), elevated lipase. UTI A/P 1. DKA - resolved , off insulin gtt , long acting started - stop IVF - on bicarb po COVID-19 POSITIVE. -NOT SYMPTOMATIC, not on TX Lines : , (Central Line Necessity Reviewed) Dawn: + to remove today OG: Nutrition: po Analgesia: Anxiety/ delirium VTE Prophylaxis: dalia Stress Ulcer Prophylaxis: na Plans in collaboration with bedside consultants and IM MDs. Discussed with RN to reach out if any questions or concerns A total of 10 minutes of critical care time was devoted to this patient today, required to treat and/or prevent further deterioration of critical care condition ( as above ) . I am remotely monitoring this patient from another state. I am unable to do the bedside exam, and history/physical and pertinent information is taken from other notes in the computer and bedside staff. Sepsis Event Evaluation Height, Weight, BMI Height: '" Weight: lbs. oz. kg; 28.06 BMI Method: Exam Exam Patient acknowledged, consented, and participated in this virtual visit which was conducted using real time audio/video Vital Signs Date Time Temp Pulse Resp B/P (MAP) Pulse Ox O2 Delivery O2 Flow Rate FiO2 08/11/22 10:00 105 20 142/76 (98) 99 Room Air 08/11/22 09:00 102 20 126/70 (88) 98 Room Air 08/11/22 08:00 36.4 08/11/22 08:00 99 14 141/79 (99) 100 Room Air 08/11/22 08:00 100 Room Air 08/11/22 07:08 90 08/11/22 07:00 98 21 122/78 (93) 98 Room Air 08/11/22 06:00 103 29 151/88 (109) 98 Room Air 08/11/22 05:00 96 18 138/81 (113) 97 Room Air 08/11/22 04:10 97 Room Air 08/11/22 04:00 96 20 142/77 (99) 98 Room Air 08/11/22 03:00 93 18 133/70 (89) 97 Room Air 08/11/22 02:30 36.5 Room Air 08/11/22 02:00 100 23 117/64 (70) 98 Room Air 08/11/22 01:00 96 20 151/78 (106) 99 Room Air 08/11/22 01:00 96 08/11/22 00:25 99 Room Air 08/11/22 00:00 96 18 106/67 (80) 98 Room Air 08/10/22 23:04 Room Air 08/10/22 23:00 98 20 119/69 (90) 98 Room Air 08/10/22 22:38 36.7 08/10/22 22:00 105 24 134/68 (80) 97 Room Air 08/10/22 21:09 37.0 08/10/22 21:00 97 19 140/76 (92) 98 Room Air 08/10/22 20:26 104 32 149/86 (133) 100 Room Air 08/10/22 20:26 37.0 08/10/22 20:00 98 Room Air 08/10/22 20:00 107 26 133/86 (109) 98 Room Air 08/10/22 19:18 98 Room Air 0.00 08/10/22 19:00 106 08/10/22 19:00 Room Air 08/10/22 19:00 106 141/84 (107) 99 Room Air 08/10/22 18:00 101 21 144/88 (106) 99 Room Air 08/10/22 17:05 36.4 08/10/22 17:00 106 25 134/83 (100) 100 Room Air 08/10/22 16:00 100 Room Air 08/10/22 16:00 113 28 121/80 (94) 99 Room Air 08/10/22 15:00 105 26 130/78 (95) 99 Room Air 08/10/22 14:00 105 31 136/94 (108) 100 Room Air 08/10/22 13:00 104 24 134/85 (101) 99 Room Air 08/10/22 12:34 111 08/10/22 12:00 120 19 143/89 (107) 98 Room Air 08/10/22 12:00 100 Room Air 08/10/22 12:00 36.8 I & O 08/11/22 07:00 Intake Total 8280 ml Output Total 6700 ml Balance 1580 ml Height & Weight Height: '" Weight: lbs. oz. kg; 28.06 BMI Method: General Appearance: No Apparent Distress, WD/WN HEENT: PERRL/EOMI Neck: Full Range of Motion, Normal Inspection, Non Tender Respiratory: Chest Non Tender, Lungs Clear, No Accessory Muscle Use Cardiovascular: No Murmur, Tachycardia Capillary Refill: Less Than 3 Seconds Extremity: No Pedal Edema Neurologic/Psychiatric: Alert, Oriented x3 Skin: Normal Color, Warm/Dry Lymphatic: No Adenopathy Results Lab Laboratory Tests 08/09/22 14:20 08/09/22 21:10 08/10/22 01:01 08/10/22 04:53 08/10/22 09:30 08/10/22 13:15 08/10/22 17:05 08/10/22 21:20 08/11/22 01:14 08/11/22 05:19 08/11/22 09:19 Assessment/Plan Assessment/Plan 1 REBEKAH MORENO MD Aug 11, 2022 11:09
[2022-08-11] MEDS ORDERED: D5W 1000 ML IV SOLUTION 1,000 ML ONE (11:14)
[2022-08-11] MEDS ORDERED: POTASSIUM CL 10MEQ/50ML IVPB 50 ML IV ONE (11:14)
[2022-08-11] MEDS ORDERED: D5 1/2 NS 1000 ML IV SOLUTION 1,000 ML IV ONE (11:18)
--- NOTE | 2022-08-11 15:09 | Occupational Ther Daily Note ---
OT Current Status-Daily Note Subjective Up in chair requesting assistance for BM incontinence Mental Status/Objective Patient Orientation: Person, Place, Time, Situation Attachments: Dawn Catheter, Telemetry ADL-Treatment toileting Therapy Code Descriptions/Definitions Functional Leon Measure: 0=Not Assessed/NA 4=Minimal Assistance 1=Total Assistance 5=Supervision or Setup 2=Maximal Assistance 6=Modified Leon 3=Moderate Assistance 7=Complete IndependenceSCALE: Activities may be completed with or without assistive devices. 2-Oxwjwnspcd-rzuuveu completes the activity by him/herself with no assistance from a helper. 5-Set-up or Clean-up Assistance-helper sets up or cleans up; patient completes activity. [place] assists only prior to or following the activity. 4-Supervision or Touching Assistance-helper provides verbal cues and/or touching/steadying and/or contact guard assistance as patient completes activity . Assistance may be provided throughout the activity or intermittently. 3-Partial/Moderate Assistance-helper does LESS THAN HALF the effort. [place] lifts, holds or supports trunk or limbs, but provides less than half the effort. 2-Substantial/Maximal Assistance-helper does MORE THAN HALF the effort. [place] lifts or holds trunk or limbs and provides more than half the effort. 6-Gpgavknzv-atfwnr does ALL the effort. Patient does none of the effort to complete the activity. Or, the assistance of 2 or more helpers is required for the patient to complete the activity. If activity was not attempted, code reason: 7-Patient Refused. 9-Not Applicable-not attempted and the patient did not perform the activity before the current illness, exacerbation or injury. 10-Not Attempted due to Environmental Limitations-(lack of equipment, weather restraints, etc.). 88-Not Attempted due to Medical Conditions or Safety Concerns. Eating (QC): 7 (reports food has no tasts) Oral Hygiene (QC): 5 Shower/Bathe Self (QC): 7 (pt requests to shower when in regular room) Upper Body Dressing (QC): 5 Lower Body Dressing (QC): 5 On/Off Footwear: 5 Toileting Hygiene (QC): 4 Toilet Transfer (QC): 5 Education OT Patient Education: Disease process, Energy conservation, Exercise program, Home exercise program, Modified ADL techniques, Progress toward Goal/Update tx plan, Purpose of tx/functional activities, Reviewed precautions, Rehab process, Safety issues, Transfer techniques, Use of adapted equipment Teaching Recipient: Patient Teaching Methods: Demonstration, Discussion Response to Teaching: Verbalize Understanding, Return Demonstration, R einforcement Needed OT Usp Goals Usp Goals Time Frame: Aug 22, 2022 Eating (QC): 6 Oral Hygiene (QC): 6 Toileting Hygiene (QC): 6 Shower/Bathe Self (QC): 6 Upper Body Dressing (QC): 6 Lower Body Dressing (QC): 6 On/Off Footwear (QC): 6 1=Demonstrate adherence to instructed precautions during ADL tasks. 2=Patient will verbalize/demonstrate understanding of assistive devices/modifications for ADL. 3=Patient will improve strength/tolerance for activity to enable patient to perform ADL's. OT Education/Plan Problem List/Assessment Assessment: Decreased Activ Tolerance, Decreased UE Strength, Impaired Cognition, Impaired Coordination, Impaired Funct Balance, Impaired Self-Care Skills, Restricted Funct UE ROM Discharge Recommendations Plan/Recommendations: Continue POC Therapy Discharge Recommendati: Post Acute OT Treatment Plan/Plan of Care Treatment,Training & Education: Yes Patient would benefit from OT for education, treatment and training to promote independence in ADL's, mobility, safety and/or upper extremity function for ADL's. Plan of Care: ADL Retraining, Cognitive Retraining (slow processing commands and organization of thought), Concurrent Therapy, Functional Mobility, Group Exercise/Act as Ind, UE Funct Exercise/Act Treatment Duration: Aug 22, 2022 Frequency: 3 times per week (3-5 times per week) Estimated Hrs Per Day: .25 hour per day Agreement: Yes Rehab Potential: Fair Time Start Time: 14:25 Stop Time: 14:45 DATE: Aug 11, 2022 Total Time Billed (hr/min): 20 Billed Treatment Time 1 visit 1 ADL 20 minutes ABNER CADENA OT Aug 11, 2022 15:09
[2022-08-12 05:36] LABS: BASOPHILS % (AUTO) 0 % (0-10); EOSINOPHILS # (AUTO) 0.1 10^3/uL (0.0-0.3); EOSINOPHILS % (AUTO) 1 % (0-10); HEMATOCRIT 35 % (35-52); HEMOGLOBIN 12.3 g/dL (11.5-16.0); LYMPHOCYTES % (AUTO) 27 % (12-44); MEAN CORPUSCULAR HEMOGLOBIN 28 pg (25-34); MEAN CORPUSCULAR HGB CONC 35 g/dL (32-36); MEAN CORPUSCULAR VOLUME 80 fL (80-99); MEAN PLATELET VOLUME 11.3 fL (9.0-12.2); MONOCYTES # (AUTO) 0.6 10^3/uL (0.0-1.0); MONOCYTES % (AUTO) 8 % (0-12); NEUTROPHILS # (AUTO) 4.5 10^3/uL (1.8-7.8); NEUTROPHILS % (AUTO) 62 % (42-75); PLATELET COUNT 235 10^3/uL (130-400); WHITE BLOOD COUNT 7.2 10^3/uL (4.3-11.0)
[2022-08-12 05:45] LABS: ALBUMIN 2.7 GM/DL (3.2-4.5); BILIRUBIN,TOTAL 0.4 MG/DL (0.1-1.0); CALCIUM 8.8 MG/DL (8.5-10.1); CREATININE SERUM 0.61 MG/DL (0.60-1.30); MAGNESIUM 1.9 MG/DL (1.6-2.4); PHOSPHORUS 3.4 MG/DL (2.3-4.7); POTASSIUM 3.5 MMOL/L (3.6-5.0); TOTAL PROTEIN 5.3 GM/DL (6.4-8.2)
[2022-08-12] MEDS: inSUlin ASPART (NovoLOG) 1 UNIT/0.01 ML (CHARGE PER UNIT) SC SCH (05:58)
[2022-08-12] MEDS: MULTIVIT W/MINERALS TAB (THERAGRAN M) PO SCH (05:58)
[2022-08-12] MEDS ORDERED: INSU100I29 SQ (06:51)
[2022-08-12] MEDS ORDERED: INSU100I14 SQ (06:51)
--- NOTE | 2022-08-12 06:51 | Discharge Summary ---
Diagnosis/Chief Complaint Date of Admission Aug 08, 2022 at 08:33 Date of Discharge Discharge Date: Aug 12, 2022 Discharge Diagnosis DKA Anion gap 8. Sugars mid/high 100s today. On insulin drip and D5. Started sodium bicarb yesterday. Abg pH is improving, 7.41, 32 CO2, 79 O2, 20 HCO3 t mann. Levemir 10 units SQ today. Planning on moving to step down today. Covid Asymptomatic, monitor WBC and vitals closely, this is the likely trigger of her DKA Electrolyte abnormalities K at 3.7 this AM improved from 2.9 yesterday. Phosphorus at 2.3 from 1.0 yesterday. Both are being replaced as needed HTN Systolic pressure 151/88 today. This is acceptable while her DKA and el ectrolytes are being managed. Continue to monitor. Diarrhea Cdiff studies negative. Continue to monitor electrolytes and replace as needed. Continue IVF and consider loperamide Discharge Summary Discharge Physical Examination Allergies: Coded Allergies: oxycodone HCl (Unverified Allergy, Unknown, RASH, 07/02/20) Vitals & I&Os Vital Signs Date Time Temp Pulse Resp B/P (MAP) Pulse Ox O2 Delivery O2 Flow Rate FiO2 08/12/22 11:29 37.1 90 18 133/81 97 Room Air 0.00 08/08/22 11:01 21 General Appearance: Alert, Oriented X3, Cooperative Respiratory: Clear to Auscultation Cardiovascular: Regular Rate Psych/Mental Status: Mental Status NL Hospital Course Was the Problem List Reviewed?: Yes Radha Cain, 57 yo F with a past medical history of diabetes, breast cancer, and uterine fibroids, was transferred to [facility] ICU from [place] ED on 08/08/22 for altered mental status with COVID positive testing and likely DKA. Per ER report: 57-year-old female presents to the ER for generalized weakness and vomiting. She reports that 4 days ago she went to urgent care for vomiting but did not provide any further information about that visit. She reports that she has not been eating or drinking since then. No reports of abdominal pain, cough fevers or chills. Patient's labs were reviewed. Patient is critically ill. Patient with likely DKA and is also positive for COVID. Patient's labs were reviewed and had extremely low sodium, CO2 with elevated glucose of 666. Patient had elevated lipase likely reactive from COVID and DKA. Patient's white count and hemoglobin were both slightly elevated likely due to severe fluid deficit. Patient was started on IV fluids bolus normal saline bolus along with bicarb and half-normal saline. Patient was started on insulin drip. Patient's x-ray was reviewed and shows no acute findings. Discussed with Dr. Vasquez. Patient to be admitted to [facility] ICU for further inpatient management. We discussed IV antibiotics but at this time with COVID and DKA is likely not bacterial and IV antibiotics are not indicated. Patient was transferred in critical condition via EMS." Urinary catheter was placed in FSED. Abdominal Series X-ray did not identify any acute abnormalities. During her hospital course, the patient was started on insulin detemir, thiamine, and folic acid. She was continuously monitored by a Tele-ICU Physician. Blood cultures resulted no growth. Urine culture resulted no growth. MRSA resulted Negative. Her mental status became much improved and anion gap began to close, therefore she was transferred to the Med-Surg floor. PT/OT was started on 08/10/22 for generalized weakness and debility. C. diff screening ordered on 08/10/22 was Negative. Chest X-ray on 08/10/22 impression was a finding of Mild right basilar atelectasis. No overt consolidation or pleural fluid. Today, Radha is laying in bed comfortably and in no distress. She denies any pain or concerns. She is able to ambulate independently. Toileting fine. She is eating but mostly consuming clear liquids. She is agreeable to being transferred to Inpatient Rehab. VINE[facility] RODRIGUES Labs (last 24 hrs) Laboratory Tests 08/08/22 07:31: White Blood Count 16.1H, Red Blood Count 6.25H, Hemoglobin 17.6H, Hematocrit 49, Mean Corpuscular Volume 79L, Mean Corpuscular Hemoglobin 28, Mean Corpuscular Hemoglobin Concent 36, Red Cell Distribution Width 12.6, Platelet Count 328, Mean Platelet Volume 12.0, Immature Granulocyte % (Auto) 1, Neutrophils (%) (Auto) 87H, Lymphocytes (%) (Auto) 5L, Monocytes (%) (Auto) 6, Eosinophils (%) (Auto) 0, Basophils (%) (Auto) 0, Neutrophils # (Auto) 14.1H, Lymphocytes # (Auto) 0.8L, Monocytes # (Auto) 0.9, Eosinophils # (Auto) 0.1, Basophils # (Auto) 0.1, Immature Granulocyte # (Auto) 0.2H, Neutrophils % (Manual) 91, Lymphocytes % (Manual) 6, Monocytes % (Manual) 3, Sodium Level 117*L, Potassium Level 4.2, Chloride Level 79L, Carbon Dioxide Level 5*L, Anion Gap 33H, Blood Urea Nitrogen 36H, Creatinine 0.82, Estimat Glomerular Filtration Rate 83, BUN/Creatinine Ratio 44, Glucose Level 666*H, Calcium Level 8.9, Corrected Calcium 8.6, Magnesium Level 2.6H, Total Bilirubin 0.4, Aspartate Amino Transf (AST/SGOT) 25, Alanine Aminotransferase (ALT/SGPT) 26, Alkaline Phosphatase 114, Troponin I < 0.30, C-Reactive Protein 2.73H, Total Protein 7.5, Albumin 4.4, Lipase 2720H, Influenza Type A (RT-PCR) Not Detected, Influenza Type B (RT-PCR) Not Detected, SARS-CoV-2 RNA (RT-PCR) DetectedH 08/08/22 08:25: Venous Blood pH 6.88L, Venous Blood Partial Pressure CO2 24L, Venous Blood HCO3 5L, Lactic Acid Level 1.71 08/08/22 08:33: Lab Scanned Report Referred Lab Report 08/08/22 08:45: Urine Color YELLOW, Urine Clarity SLIGHTLY CLOUDY, Urine pH 5.0, Urine Specific Anderson 1.020, Urine Protein 1+H, Urine Glucose (UA) 3+H, Urine Ketones 3+H, Urine Nitrite NEGATIVE, Urine Bilirubin 1+H, Urine Urobilinogen 0.2, Urine Leukocyte Esterase NEGATIVE, Urine RBC (Auto) 3+H, Urine RBC NONE, Urine WBC 5- 10H, Urine Crystals NONE, Urine Bacteria LARGEH, Urine Casts PRESENT, Urine Granular Casts 5-10H, Urine Mucus NEGATIVE, Urine Culture Indicated YES 08/08/22 09:06: Glucometer 582*H 08/08/22 10:24: Glucometer 472*H 08/08/22 10:40: Sodium Level 122*L, Potassium Level 2.6L, Chloride Level 98, Carbon Dioxide Level < 5*L, Anion Gap 19H, Blood Urea Nitrogen 32H, Creatinine 1.37H, Estimat Glomerular Filtration Rate 45, BUN/Creatinine Ratio 23, Glucose Level 465*H, Mean Blood Glucose 332H, Hemoglobin A1c 13.2H, Calcium Level 7.9L, Magnesium Level 2.3, Beta-Hydroxybutyrate (Chem panel) 6.55H 08/08/22 10:45: Blood Gas Puncture Site RIGHT RADIAL, Blood Gas Patient Temperature 35.6, Arterial Blood pH 7.07*L, Arterial Blood Partial Pressure CO2 14*L, Arterial Blood Partial Pressure O2 120H, Arterial Blood HCO3 4*L, Arterial Blood Total CO2 4.5*L, Arterial Blood Oxygen Saturation 99, Arterial Blood Base Excess - 24.7L, Miguel Test POSITIVE, Blood Gas Ventilator Setting NO, Blood Gas Inspired Oxygen UNK 08/08/22 11:40: Glucometer 397H 08/08/22 12:47: Glucometer 314H 08/08/22 13:38: Glucometer 289H 08/08/22 14:20: Sodium Level 126L, Potassium Level 3.1L, Chloride Level 104, Carbon Dioxide Level 6*L, Anion Gap 16H, Blood Urea Nitrogen 27H, Creatinine 1.08, Estimat Glomerular Filtration Rate 60, BUN/Creatinine Ratio 25, Glucose Level 261H, Calcium Level 7.6L 08/08/22 14:38: Glucometer 272H 08/08/22 15:45: Glucometer 215H 08/08/22 17:18: Glucometer 216H 08/08/22 18:47: Glucometer 212H 08/08/22 19:21: Glucometer 219H 08/08/22 19:30: Sodium Level 128L, Potassium Level 3.1L, Chloride Level 106, Carbon Dioxide Level 5*L, Anion Gap 17H, Blood Urea Nitrogen 24H, Creatinine 0.91, Estimat Glomerular Filtration Rate 74, BUN/Creatinine Ratio 26, Glucose Level 238H, Calcium Level 7.6L 08/08/22 19:59: Glucometer 260H 08/08/22 21:07: Glucometer 241H 08/08/22 22:10: Glucometer 228H 08/08/22 23:06: Glucometer 206H 08/08/22 23:55: Glucometer 165H 08/09/22 00:25: Sodium Level 131L, Potassium Level 2.8L, Chloride Level 111H, Carbon Dioxide Level 10L, Anion Gap 10, Blood Urea Nitrogen 20H, Creatinine 0.86, Estimat Glomerular Filtration Rate 79, BUN/Creatinine Ratio 23, Glucose Level 164H, Calcium Level 7.9L 08/09/22 01:03: Glucometer 168H 08/09/22 02:02: Glucometer 171H 08/09/22 02:49: Glucometer 193H 08/09/22 03:44: Glucometer 240H 08/09/22 04:59: Glucometer 288H 08/09/22 05:21: White Blood Count 4.1L, Red Blood Count 5.17H, Hemoglobin 14.4, Hematocrit 40, Mean Corpuscular Volume 78L, Mean Corpuscular Hemoglobin 28, Mean Corpuscular Hemoglobin Concent 36, Red Cell Distribution Width 12.4, Platelet Count 186, Mean Platelet Volume 11.4, Immature Granulocyte % (Auto) 0, Neutrophils (%) (Auto) 81H, Lymphocytes (%) (Auto) 9L, Monocytes (%) (Auto) 9, Eosinophils (%) (Auto) 1, Basophils (%) (Auto) 0, Neutrophils # (Auto) 3.4, Lymphocytes # (Auto) 0.4L, Monocytes # (Auto) 0.4, Eosinophils # (Auto) 0.0, Basophils # (Auto) 0.0, Immature Granulocyte # (Auto) 0.0, Sodium Level 130L, Potassium Level 2.9L, Chloride Level 112H, Carbon Dioxide Level 8*L, Anion Gap 10, Blood Urea Nitrogen 15, Creatinine 0.83, Estimat Glomerular Filtration Rate 82, BUN/Creatinine Ratio 18, Glucose Level 290H, Calcium Level 7.9L, Corrected Calcium 8.7, Phosphorus Level 0.7*L, Magnesium Level 1.9, Total Bilirubin 0.4, Aspartate Amino Transf (AST/SGOT) 22, Alanine Aminotransferase (ALT/SGPT) 23, Alkaline Phosphatase 59, Total Protein 5.7L, Albumin 3.0L, Lipase 416H 08/09/22 06:04: Glucometer 250H 08/09/22 06:52: Glucometer 268H 08/09/22 07:59: Glucometer 224H 08/09/22 08:12: Blood Gas Puncture Site LEFT WRIST, Blood Gas Patient Temperature 36.1, Arterial Blood pH 7.39, Arterial Blood Partial Pressure CO2 20L, Arterial Blood Partial Pressure O2 86, Arterial Blood HCO3 12*L, Arterial Blood Total CO2 12.9L, Arterial Blood Oxygen Saturation 99, Arterial Blood Base Excess -12.0L, Miguel Test POSITIVE, Blood Gas Ventilator Setting NO, Blood Gas Inspired Oxygen N/A 08/09/22 09:07: Glucometer 198H 08/09/22 10:07: Glucometer 183H 08/09/22 10:54: Glucometer 185H 08/09/22 12:05: Glucometer 163H 08/09/22 13:02: Glucometer 111H 08/09/22 14:03: Glucometer 100 08/09/22 14:20: Sodium Level 139, Potassium Level 2.9L, Chloride Level 119H, Carbon Dioxide Level 11L, Anion Gap 9, Blood Urea Nitrogen 10, Creatinine 0.52L, Estimat Glomerular Filtration Rate 108, BUN/Creatinine Ratio 19, Glucose Level 97, Calcium Level 7.6L, Beta-Hydroxybutyrate (Chem panel) 0.06 08/09/22 15:35: Glucometer 67L 08/09/22 16:45: Glucometer 77 08/09/22 18:48: Glucometer 30*L 08/09/22 18:50: Glucometer 35*L 08/09/22 18:59: Glucometer 50*L 08/09/22 19:14: Glucometer 94 08/09/22 19:44: Glucometer 81 08/09/22 20:56: Glucometer 101 08/09/22 21:10: Sodium Level 137, Potassium Level 3.6, Chloride Level 117H, Carbon Dioxide Level 10L, Anion Gap 10, Blood Urea Nitrogen 8, Creatinine 0.54L, Estimat Glomerular Filtration Rate 107, BUN/Creatinine Ratio 15, Glucose Level 84, Calcium Level 8.5, Magnesium Level 1.8 08/09/22 22:10: Glucometer 86 08/09/22 23:23: Glucometer 168H 08/10/22 00:17: Glucometer 96 08/10/22 01:01: Sodium Level 138, Potassium Level 2.7L, Chloride Level 116H, Carbon Dioxide Level 13L, Anion Gap 9, Blood Urea Nitrogen 7, Creatinine 0.52L, Estimat Glomerular Filtration Rate 108, BUN/Creatinine Ratio 13, Glucose Level 103, Calcium Level 8.0L, Phosphorus Level < 0.7*L, Magnesium Level 1.7 08/10/22 01:10: Glucometer 113H 08/10/22 02:07: Glucometer 121H 08/10/22 03:05: Glucometer 115H 08/10/22 04:16: Glucometer 142H 08/10/22 04:53: White Blood Count 5.8, Red Blood Count 4.66, Hemoglobin 13.1, Hematocrit 36, Mean Corpuscular Volume 76L, Mean Corpuscular Hemoglobin 28, Mean Corpuscular Hemoglobin Concent 37H, Red Cell Distribution Width 13.0, Platelet Count 183, Mean Platelet Volume 12.0, Immature Granulocyte % (Auto) 1, Neutrophils (%) (A uto) 76H, Lymphocytes (%) (Auto) 16, Monocytes (%) (Auto) 6, Eosinophils (%) (Auto) 1, Basophils (%) (Auto) 0, Neutrophils # (Auto) 4.4, Lymphocytes # (Auto) 0.9L, Monocytes # (Auto) 0.4, Eosinophils # (Auto) 0.1, Basophils # (Auto) 0.0, Immature Granulocyte # (Auto) 0.1, Sodium Level 138, Potassium Level 2.9L, Chloride Level 115H, Carbon Dioxide Level 12L, Anion Gap 11, Blood Urea Nitrogen 6L, Creatinine 0.54L, Estimat Glomerular Filtration Rate 107, BUN/Creatinine Ratio 11, Glucose Level 148H, Calcium Level 8.0L, Corrected Calcium 9.1, Phosphorus Level 1.2L, Magnesium Level 1.9, Total Bilirubin 0.4, Aspartate Amino Transf (AST/SGOT) 11, Alanine Aminotransferase (ALT/SGPT) 12, Alkaline P hosphatase 57, Total Protein 5.2L, Albumin 2.6L 08/10/22 05:08: Glucometer 160H 08/10/22 06:04: Glucometer 162H 08/10/22 06:22: Blood Gas Puncture Site L BRACH, Blood Gas Patient Temperature 36.3, Arterial Blood pH 7.38, Arterial Blood Partial Pressure CO2 27L, Arterial Blood Partial Pressure O2 92, Arterial Blood HCO3 16*L, Arterial Blood Total CO2 16.6L, Arterial Blood Oxygen Saturation 100, Arterial Blood Base Excess -8.6L, Miguel Test YES-POS, Blood Gas Ventilator Setting NO, Blood Gas Inspired Oxygen RA 08/10/22 06:54: Glucometer 172H 08/10/22 08:10: Glucometer 172H 08/10/22 09:11: Glucometer 224H 08/10/22 09:30: Sodium Level 138, Potassium Level 3.2L, Chloride Level 114H, Carbon Dioxide Level 15L, Anion Gap 9, Blood Urea Nitrogen 6L, Creatinine 0.56L, Estimat Glomerular Filtration Rate 106, BUN/Creatinine Ratio 11, Glucose Level 236H, Calcium Level 8.1L, Phosphorus Level 1.0*L, Magnesium Level 1.6, Beta- Hydroxybutyrate (Chem panel) 0.12 08/10/22 10:05: Glucometer 228H 08/10/22 10:59: Glucometer 228H 08/10/22 12:06: Glucometer 244H 08/10/22 13:11: Glucometer 216H 08/10/22 13:15: Sodium Level 140, Potassium Level 3.4L, Chloride Level 116H, Carbon Dioxide Level 14L, Anion Gap 10, Blood Urea Nitrogen 5L, Creatinine 0.57L, Estimat Glomerular Filtration Rate 106, BUN/Creatinine Ratio 9, Glucose Level 225H, Calcium Level 8.4L, Phosphorus Level 1.2L, Magnesium Level 2.5H 08/10/22 13:59: Glucometer 164H 08/10/22 15:05: Glucometer 229H 08/10/22 16:02: Glucometer 184H 08/10/22 17:04: Glucometer 182H 08/10/22 17:05: Sodium Level 142, Potassium Level 4.0, Chloride Level 116H, Carbon Dioxide Level 17L, Anion Gap 9, Blood Urea Nitrogen 4L, Creatinine 0.55L, Estimat Glomerular Filtration Rate 107, BUN/Creatinine Ratio 7, Glucose Level 199H, Calcium Level 8.2L, Phosphorus Level 1.6L, Magnesium Level 2.4 08/10/22 18:05: Glucometer 164H 08/10/22 18:55: Glucometer 164H 08/10/22 19:54: Glucometer 171H 08/10/22 21:16: Glucometer 127H 08/10/22 21:20: Sodium Level 140, Potassium Level 3.5L, Chloride Level 115H, Carbon Dioxide Level 15L, Anion Gap 10, Blood Urea Nitrogen 4L, Creatinine 0.51L, Estimat Glomerular Filtration Rate 109, BUN/Creatinine Ratio 8, Glucose Level 141H, Calcium Level 8.3L, Phosphorus Level 1.1L, Magnesium Level 2.1 08/10/22 22:09: Glucometer 170H 08/10/22 22:55: Glucometer 164H 08/11/22 00:02: Glucometer 162H 08/11/22 01:06: Glucometer 160H 08/11/22 01:14: Sodium Level 139, Potassium Level 3.5L, Chloride Level 115H, Carbon Dioxide Level 17L, Anion Gap 7, Blood Urea Nitrogen 4L, Creatinine 0.50L, Estimat Glomerular Filtration Rate 109, BUN/Creatinine Ratio 8, Glucose Level 167H, Calcium Level 8.1L, Phosphorus Level 1.1L, Magnesium Level 2.2 08/11/22 01:59: Glucometer 158H 08/11/22 03:04: Glucometer 168H 08/11/22 04:09: Glucometer 152H 08/11/22 04:50: Blood Gas Puncture Site RR, Blood Gas Patient Temperature 36.3, Arterial Blood pH 7.41, Arterial Blood Partial Pressure CO2 32L, Arterial Blood Partial Pressure O2 79, Arterial Blood HCO3 20L, Arterial Blood Total CO2 21.5, Arterial Blood Oxygen Saturation 99, Arterial Blood Base Excess -3.5L, Miguel Test YES- POS, Blood Gas Ventilator Setting NO, Blood Gas Inspired Oxygen 36.3 08/11/22 04:51: Glucometer 159H 08/11/22 05:19: White Blood Count 6.2, Red Blood Count 4.03, Hemoglobin 11.1L, Hematocrit 31L, Mean Corpuscular Volume 77L, Mean Corpuscular Hemoglobin 28, Mean Corpuscular Hemoglobin Concent 36, Red Cell Distribution Width 13.4, Platelet Count 219, Mean Platelet Volume 12.0, Immature Granulocyte % (Auto) 1, Neutrophils (%) (Auto) 64, Lymphocytes (%) (Auto) 28, Monocytes (%) (Auto) 6, Eosinophils (%) (Auto) 1, Basophils (%) (Auto) 0, Neutrophils # (Auto) 3.9, Lymphocytes # (Auto) 1.7, Monocytes # (Auto) 0.4, Eosinophils # (Auto) 0.1, Basophils # (Auto) 0.0, Immature Granulocyte # (Auto) 0.1, Sodium Level 141, Potassium Level 3.7, Chloride Level 115H, Carbon Dioxide Level 18L, Anion Gap 8, Blood Urea Nitrogen 4L, Creatinine 0.48L, Estimat Glomerular Filtration Rate 110, BUN/Creatinine Ratio 8, Glucose Level 155H, Calcium Level 8.0L, Corrected Calcium 9.2, Phosphorus Level 2.6, Magnesium Level 1.9, Total Bilirubin 0.3, Aspartate Amino Transf (AST/SGOT) 9, Alanine Aminotransferase (ALT/SGPT) 11, Alkaline Phosphatase 49, Total Protein 4.9L, Albumin 2.5L 08/11/22 06:14: Glucometer 145H 08/11/22 06:42: Glucometer 150H 08/11/22 08:00: Glucometer 146H 08/11/22 09:04: Glucometer 176H 08/11/22 09:19: Sodium Level 139, Potassium Level 3.8, Chloride Level 111H, Carbon Dioxide Level 19L, Anion Gap 9, Blood Urea Nitrogen 3L, Creatinine 0.52L, Estimat Glomerular Filtration Rate 108, BUN/Creatinine Ratio 6, Glucose Level 176H, Calcium Level 8.2L, Phosphorus Level 2.3, Magnesium Level 2.1, Beta-Hydroxybutyrate (Chem panel) 0.24 08/11/22 10:09: Glucometer 189H 08/11/22 11:10: Glucometer 212H 08/11/22 15:34: Glucometer 205H 08/11/22 20:17: Glucometer 160H 08/12/22 05:17: White Blood Count 7.2, Red Blood Count 4.40, Hemoglobin 12.3, Hematocrit 35, Mean Corpuscular Volume 80, Mean Corpuscular Hemoglobin 28, Mean Corpuscular Hemoglobin Concent 35, Red Cell Distribution Width 14.0, Platelet Count 235, Mean Platelet Volume 11.3, Immature Granulocyte % (Auto) 2, Neutrophils (%) (Auto) 62, Lymphocytes (%) (Auto) 27, Monocytes (%) (Auto) 8, Eosinophils (%) (Auto) 1, Basophils (%) (Auto) 0, Neutrophils # (Auto) 4.5, Lymphocytes # (Auto) 2.0, Monocytes # (Auto) 0.6, Eosinophils # (Auto) 0.1, Basophils # (Auto) 0.0, Immature Granulocyte # (Auto) 0.1, Sodium Level 137, Potassium Level 3.5L, Chloride Level 103, Carbon Dioxide Level 23, Anion Gap 11, Blood Urea Nitrogen 6L, Creatinine 0.61, Estimat Glomerular Filtration Rate 104, BUN/Creatinine Ratio 10, Glucose Level 224H, Calcium Level 8.8, Corrected Calcium 9.8, Phosphorus Level 3.4, Magnesium Level 1.9, Total Bilirubin 0.4, Aspartate Amino Transf (AST/SGOT) 12, Alanine Aminotransferase (ALT/SGPT) 12, Alkaline Phosphatase 57, Total Protein 5.3L, Albumin 2.7L Microbiology 08/10/22 C. difficile GDH Antigen & Toxins - Final, Complete 08/08/22 MRSA Screen - Final, Complete MRSA not isolated 08/08/22 Urine Culture - Final, Complete NO GROWTH 08/08/22 Blood Culture - Preliminary, Resulted No growth Pending Labs Microbiology Date/Time Source Procedure Growth Status 08/10/22 20:00 Stool C. difficile GDH Antigen & Toxins - Final Complete 08/08/22 10:30 Nasal MRSA Screen - Final MRSA not isolated Complete 08/08/22 08:45 Urine Straight Cath, In/Out Urine Culture - Final NO GROWTH Complete 08/08/22 08:25 Peripheral Lt Hand Blood Culture - Preliminary No growth Resulted 08/08/22 08:25 Peripheral Rt Hand Blood Culture - Preliminary No growth Resulted Laboratory Tests 08/08/22 07:31: White Blood Count 16.1, Red Blood Count 6.25, Hemoglobin 17.6, Hematocrit 49, Mean Corpuscular Volume 79, Mean Corpuscular Hemoglobin 28, Mean Corpuscular Hemoglobin Concent 36, Red Cell Distribution Width 12.6, Platelet Count 328, Mean Platelet Volume 12.0, Immature Granulocyte % (Auto) 1, Neutrophils (%) (Auto) 87, Lymphocytes (%) (Auto) 5, Monocytes (%) (Auto) 6, Eosinophils (%) (Auto) 0, Basophils (%) (Auto) 0, Neutrophils # (Auto) 14.1, Lymphocytes # (Auto) 0.8, Monocytes # (Auto) 0.9, Eosinophils # (Auto) 0.1, Basophils # (Auto) 0.1, Immature Granulocyte # (Auto) 0.2, Neutrophils % (Manual) 91, Lymphocytes % (Manual) 6, Monocytes % (Manual) 3, Sodium Level 117, Potassium Level 4.2, Chloride Level 79, Carbon Dioxide Level 5, Anion Gap 33, Blood Urea Nitrogen 36, Creatinine 0.82, Estimat Glomerular Filtration Rate 83, BUN/Creatinine Ratio 44, Glucose Level 666, Calcium Level 8.9, Corrected Calcium 8.6, Magnesium Level 2.6, Total Bilirubin 0.4, Aspartate Amino Transf (AST/SGOT) 25, Alanine Aminotransferase (ALT/SGPT) 26, Alkaline Phosphatase 114, Troponin I < 0.30, C- Reactive Protein 2.73, Total Protein 7.5, Albumin 4.4, Lipase 2720, Influenza Type A (RT-PCR) Not Detected, Influenza Type B (RT-PCR) Not Detected, SARS-CoV-2 RNA (RT-PCR) Detected 08/08/22 08:25: Venous Blood pH 6.88, Venous Blood Partial Pressure CO2 24, Venous Blood HCO3 5, Lactic Acid Level 1.71 08/08/22 08:33: Lab Scanned Report Referred Lab Report 08/08/22 08:45: Urine Color YELLOW, Urine Clarity SLIGHTLY CLOUDY, Urine pH 5.0, Urine Specific Anderson 1.020, Urine Protein 1+, Urine Glucose (UA) 3+, Urine Ketones 3+, Urine Nitrite NEGATIVE, Urine Bilirubin 1+, Urine Urobilinogen 0.2, Urine Leukocyte Esterase NEGATIVE, Urine RBC (Auto) 3+, Urine RBC NONE, Urine WBC 5-10, Urine Crystals NONE, Urine Bacteria LARGE, Urine Casts PRESENT, Urine Granular Casts 5-10, Urine Mucus NEGATIVE, Urine Culture Indicated YES 08/08/22 09:06: Glucometer 582 08/08/22 10:24: Glucometer 472 08/08/22 10:40: Sodium Level 122, Potassium Level 2.6, Chloride Level 98, Carbon Dioxide Level < 5, Anion Gap 19, Blood Urea Nitrogen 32, Creatinine 1.37, Estimat Glomerular Filtration Rate 45, BUN/Creatinine Ratio 23, Glucose Level 465, Mean Blood Glucose 332, Hemoglobin A1c 13.2, Calcium Level 7.9, Magnesium Level 2.3, Beta- Hydroxybutyrate (Chem panel) 6.55 08/08/22 10:45: Blood Gas Puncture Site RIGHT RADIAL, Blood Gas Patient Temperature 35.6, Arterial Blood pH 7.07, Arterial Blood Partial Pressure CO2 14, Arterial Blood Partial Pressure O2 120, Arterial Blood HCO3 4, Arterial Blood Total CO2 4.5, Arterial Blood Oxygen Saturation 99, Arterial Blood Base Excess -24.7, Miguel Test POSITIVE, Blood Gas Ventilator Setting NO, Blood Gas Inspired Oxygen UNK 08/08/22 11:40: Glucometer 397 08/08/22 12:47: Glucometer 314 08/08/22 13:38: Glucometer 289 08/08/22 14:20: Sodium Level 126, Potassium Level 3.1, Chloride Level 104, Carbon Dioxide Level 6, Anion Gap 16, Blood Urea Nitrogen 27, Creatinine 1.08, Estimat Glomerular Filtration Rate 60, BUN/Creatinine Ratio 25, Glucose Level 261, Calcium Level 7 .6 08/08/22 14:38: Glucometer 272 08/08/22 15:45: Glucometer 215 08/08/22 17:18: Glucometer 216 08/08/22 18:47: Glucometer 212 08/08/22 19:21: Glucometer 219 08/08/22 19:30: Sodium Level 128, Potassium Level 3.1, Chloride Level 106, Carbon Dioxide Level 5, Anion Gap 17, Blood Urea Nitrogen 24, Creatinine 0.91, Estimat Glomerular Filtration Rate 74, BUN/Creatinine Ratio 26, Glucose Level 238, Calcium Level 7.6 08/08/22 19:59: Glucometer 260 08/08/22 21:07: Glucometer 241 08/08/22 22:10: Glucometer 228 08/08/22 23:06: Glucometer 206 08/08/22 23:55: Glucometer 165 08/09/22 00:25: Sodium Level 131, Potassium Level 2.8, Chloride Level 111, Carbon Dioxide Level 10, Anion Gap 10, Blood Urea Nitrogen 20, Creatinine 0.86, Estimat Glomerular Filtration Rate 79, BUN/Creatinine Ratio 23, Glucose Level 164, Calcium Level 7.9 08/09/22 01:03: Glucometer 168 08/09/22 02:02: Glucometer 171 08/09/22 02:49: Glucometer 193 08/09/22 03:44: Glucometer 240 08/09/22 04:59: Glucometer 288 08/09/22 05:21: White Blood Count 4.1, Red Blood Count 5.17, Hemoglobin 14.4, Hematocrit 40, Mean Corpuscular Volume 78, Mean Corpuscular Hemoglobin 28, Mean Corpuscular Hemoglobin Concent 36, Red Cell Distribution Width 12.4, Platelet Count 186, Mean Platelet Volume 11.4, Immature Granulocyte % (Auto) 0, Neutrophils (%) (Auto) 81, Lymphocytes (%) (Auto) 9, Monocytes (%) (Auto) 9, Eosinophils (%) (Auto) 1, Basophils (%) (Auto) 0, Neutrophils # (Auto) 3.4, Lymphocytes # (Auto) 0.4, Monocytes # (Auto) 0.4, Eosinophils # (Auto) 0.0, Basophils # (Auto) 0.0, Immature Granulocyte # (Auto) 0.0, Sodium Level 130, Potassium Level 2.9, Chloride Level 112, Carbon Dioxide Level 8, Anion Gap 10, Blood Urea Nitrogen 15, Creatinine 0.83, Estimat Glomerular Filtration Rate 82, BUN/Creatinine Ratio 18, Glucose Level 290, Calcium Level 7.9, Corrected Calcium 8.7, Phosphorus Level 0.7, Magnesium Level 1.9, Total Bilirubin 0.4, Aspartate Amino Transf (AST/SGOT) 22, Alanine Aminotransferase (ALT/SGPT) 23, Alkaline Phosphatase 59, Total Protein 5.7, Albumin 3.0, Lipase 416 08/09/22 06:04: Glucometer 250 08/09/22 06:52: Glucometer 268 08/09/22 07:59: Glucometer 224 08/09/22 08:12: Blood Gas Puncture Site LEFT WRIST, Blood Gas Patient Temperature 36.1, Arterial Blood pH 7.39, Arterial Blood Partial Pressure CO2 20, Arterial Blood Partial Pressure O2 86, Arterial Blood HCO3 12, Arterial Blood Total CO2 12.9, Arterial Blood Oxygen Saturation 99, Arterial Blood Base Excess -12.0, Miguel Test POSITIVE, Blood Gas Ventilator Setting NO, Blood Gas Inspired Oxygen N/A 08/09/22 09:07: Glucometer 198 08/09/22 10:07: Glucometer 183 08/09/22 10:54: Glucometer 185 08/09/22 12:05: Glucometer 163 08/09/22 13:02: Glucometer 111 08/09/22 14:03: Glucometer 100 08/09/22 14:20: Sodium Level 139, Potassium Level 2.9, Chloride Level 119, Carbon Dioxide Level 11, Anion Gap 9, Blood Urea Nitrogen 10, Creatinine 0.52, Estimat Glomerular Filtration Rate 108, BUN/Creatinine Ratio 19, Glucose Level 97, Calcium Level 7.6, Beta-Hydroxybutyrate (Chem panel) 0.06 08/09/22 15:35: Glucometer 67 08/09/22 16:45: Glucometer 77 08/09/22 18:48: Glucometer 30 08/09/22 18:50: Glucometer 35 08/09/22 18:59: Glucometer 50 08/09/22 19:14: Glucometer 94 08/09/22 19:44: Glucometer 81 08/09/22 20:56: Glucometer 101 08/09/22 21:10: Sodium Level 137, Potassium Level 3.6, Chloride Level 117, Carbon Dioxide Level 10, Anion Gap 10, Blood Urea Nitrogen 8, Creatinine 0.54, Estimat Glomerular Filtration Rate 107, BUN/Creatinine Ratio 15, Glucose Level 84, Calcium Level 8.5, Magnesium Level 1.8 08/09/22 22:10: Glucometer 86 08/09/22 23:23: Glucometer 168 08/10/22 00:17: Glucometer 96 08/10/22 01:01: Sodium Level 138, Potassium Level 2.7, Chloride Level 116, Carbon Dioxide Level 13, Anion Gap 9, Blood Urea Nitrogen 7, Creatinine 0.52, Estimat Glomerular F iltration Rate 108, BUN/Creatinine Ratio 13, Glucose Level 103, Calcium Level 8.0, Phosphorus Level < 0.7, Magnesium Level 1.7 08/10/22 01:10: Glucometer 113 08/10/22 02:07: Glucometer 121 08/10/22 03:05: Glucometer 115 08/10/22 04:16: Glucometer 142 08/10/22 04:53: White Blood Count 5.8, Red Blood Count 4.66, Hemoglobin 13.1, Hematocrit 36, Mean Corpuscular Volume 76, Mean Corpuscular Hemoglobin 28, Mean Corpuscular Hemoglobin Concent 37, Red Cell Distribution Width 13.0, Platelet Count 183, Mean Platelet Volume 12.0, Immature Granulocyte % (Auto) 1, Neutrophils (%) (Auto) 76, Lymphocytes (%) (Auto) 16, Monocytes (%) (Auto) 6, Eosinophils (%) (Auto) 1, Basophils (%) (Auto) 0, Neutrophils # (Auto) 4.4, Lymphocytes # (Auto) 0.9, Monocytes # (Auto) 0.4, Eosinophils # (Auto) 0.1, Basophils # (Auto) 0.0, Immature Granulocyte # (Auto) 0.1, Sodium Level 138, Potassium Level 2.9, Chloride Level 115, Carbon Dioxide Level 12, Anion Gap 11, Blood Urea Nitrogen 6, Creatinine 0.54, Estimat Glomerular Filtration Rate 107, BUN/Creatinine Ratio 11, Glucose Level 148, Calcium Level 8.0, Corrected Calcium 9.1, Phosphorus Level 1.2, Magnesium Level 1.9, Total Bilirubin 0.4, Aspartate Amino Transf (AST/SGOT) 11, Alanine Aminotransferase (ALT/SGPT) 12, Alkaline Phosphatase 57, Total Protein 5.2, Albumin 2.6 08/10/22 05:08: Glucometer 160 08/10/22 06:04: Glucometer 162 08/10/22 06:22: Blood Gas Puncture Site L BRACH, Blood Gas Patient Temperature 36.3, Arterial Blood pH 7.38, Arterial Blood Partial Pressure CO2 27, Arterial Blood Partial Pressure O2 92, Arterial Blood HCO3 16, Arterial Blood Total CO2 16.6, Arterial Blood Oxygen Saturation 100, Arterial Blood Base Excess -8.6, Miguel Test YES- POS, Blood Gas Ventilator Setting NO, Blood Gas Inspired Oxygen RA 08/10/22 06:54: Glucometer 172 08/10/22 08:10: Glucometer 172 08/10/22 09:11: Glucometer 224 08/10/22 09:30: Sodium Level 138, Potassium Level 3.2, Chloride Level 114, Carbon Dioxide Level 15, Anion Gap 9, Blood Urea Nitrogen 6, Creatinine 0.56, Estimat Glomerular Filtration Rate 106, BUN/Creatinine Ratio 11, Glucose Level 236, Calcium Level 8.1, Phosphorus Level 1.0, Magnesium Level 1.6, Beta-Hydroxybutyrate (Chem panel) 0.12 08/10/22 10:05: Glucometer 228 08/10/22 10:59: Glucometer 228 08/10/22 12:06: Glucometer 244 08/10/22 13:11: Glucometer 216 08/10/22 13:15: Sodium Level 140, Potassium Level 3.4, Chloride Level 116, Carbon Dioxide Level 14, Anion Gap 10, Blood Urea Nitrogen 5, Creatinine 0.57, Estimat Glomerular Filtration Rate 106, BUN/Creatinine Ratio 9, Glucose Level 225, Calcium Level 8.4, Phosphorus Level 1.2, Magnesium Level 2.5 08/10/22 13:59: Glucometer 164 08/10/22 15:05: Glucometer 229 08/10/22 16:02: Glucometer 184 08/10/22 17:04: Glucometer 182 08/10/22 17:05: Sodium Level 142, Potassium Level 4.0, Chloride Level 116, Carbon Dioxide Level 17, Anion Gap 9, Blood Urea Nitrogen 4, Creatinine 0.55, Estimat Glomerular Filtration Rate 107, BUN/Creatinine Ratio 7, Glucose Level 199, Calcium Level 8.2, Phosphorus Level 1.6, Magnesium Level 2.4 08/10/22 18:05: Glucometer 164 08/10/22 18:55: Glucometer 164 08/10/22 19:54: Glucometer 171 08/10/22 21:16: Glucometer 127 08/10/22 21:20: Sodium Level 140, Potassium Level 3.5, Chloride Level 115, Carbon Dioxide Level 15, Anion Gap 10, Blood Urea Nitrogen 4, Creatinine 0.51, Estimat Glomerular Filtration Rate 109, BUN/Creatinine Ratio 8, Glucose Level 141, Calcium Level 8.3, Phosphorus Level 1.1, Magnesium Level 2.1 08/10/22 22:09: Glucometer 170 08/10/22 22:55: Glucometer 164 08/11/22 00:02: Glucometer 162 08/11/22 01:06: Glucometer 160 08/11/22 01:14: Sodium Level 139, Potassium Level 3.5, Chloride Level 115, Carbon Dioxide Level 17, Anion Gap 7, Blood Urea Nitrogen 4, Creatinine 0.50, Estimat Glomerular Filtration Rate 109, BUN/Creatinine Ratio 8, Glucose Level 167, Calcium Level 8.1, Phosphorus Level 1.1, Magnesium Level 2.2 08/11/22 01:59: Glucometer 158 08/11/22 03:04: Glucometer 168 08/11/22 04:09: Glucometer 152 08/11/22 04:50: Blood Gas Puncture Site RR, Blood Gas Patient Temperature 36.3, Arterial Blood pH 7.41, Arterial Blood Partial Pressure CO2 32, Arterial Blood Partial Pressure O2 79, Arterial Blood HCO3 20, Arterial Blood Total CO2 21.5, Arterial Blood Oxygen Saturation 99, Arterial Blood Base Excess -3.5, Imguel Test YES-POS, Blood Gas Ventilator Setting NO, Blood Gas Inspired Oxygen 36.3 08/11/22 04:51: Glucometer 159 08/11/22 05:19: White Blood Count 6.2, Red Blood Count 4.03, Hemoglobin 11.1, Hematocrit 31, Mean Corpuscular Volume 77, Mean Corpuscular Hemoglobin 28, Mean Corpuscular Hemoglobin Concent 36, Red Cell Distribution Width 13.4, Platelet Count 219, Mean Platelet Volume 12.0, Immature Granulocyte % (Auto) 1, Neutrophils (%) (Auto) 64, Lymphocytes (%) (Auto) 28, Monocytes (%) (Auto) 6, Eosinophils (%) (Auto) 1, Basophils (%) (Auto) 0, Neutrophils # (Auto) 3.9, Lymphocytes # (Auto) 1.7, Monocytes # (Auto) 0.4, Eosinophils # (Auto) 0.1, Basophils # (Auto) 0.0, Immature Granulocyte # (Auto) 0.1, Sodium Level 141, Potassium Level 3.7, Chloride Level 115, Carbon Dioxide Level 18, Anion Gap 8, Blood Urea Nitrogen 4, Creatinine 0.48, Estimat Glomerular Filtration Rate 110, BUN/Creatinine Ratio 8, Glucose Level 155, Calcium Level 8.0, Corrected Calcium 9.2, Phosphorus Level 2.6, Magnesium Level 1.9, Total Bilirubin 0.3, Aspartate Amino Transf (AST/SGOT) 9, Alanine Aminotransferase (ALT/SGPT) 11, Alkaline Phosphatase 49, Total Protein 4.9, Albumin 2.5 08/11/22 06:14: Glucometer 145 08/11/22 06:42: Glucometer 150 08/11/22 08:00: Glucometer 146 08/11/22 09:04: Glucometer 176 08/11/22 09:19: Sodium Level 139, Potassium Level 3.8, Chloride Level 111, Carbon Dioxide Level 19, Anion Gap 9, Blood Urea Nitrogen 3, Creatinine 0.52, Estimat Glomerular Filtration Rate 108, BUN/Creatinine Ratio 6, Glucose Level 176, Calcium Level 8.2, Phosphorus Level 2.3, Magnesium Level 2.1, Beta-Hydroxybutyrate (Chem panel) 0.24 08/11/22 10:09: Glucometer 189 08/11/22 11:10: Glucometer 212 08/11/22 15:34: Glucometer 205 08/11/22 20:17: Glucometer 160 08/12/22 05:17: White Blood Count 7.2, Red Blood Count 4.40, Hemoglobin 12.3, Hematocrit 35, Mean Corpuscular Volume 80, Mean Corpuscular Hemoglobin 28, Mean Corpuscular Hemoglobin Concent 35, Red Cell Distribution Width 14.0, Platelet Count 235, Mean Platelet Volume 11.3, Immature Granulocyte % (Auto) 2, Neutrophils (%) (Auto) 62, Lymphocytes (%) (Auto) 27, Monocytes (%) (Auto) 8, Eosinophils (%) (Auto) 1, Basophils (%) (Auto) 0, Neutrophils # (Auto) 4.5, Lymphocytes # (Auto) 2.0, Monocytes # (Auto) 0.6, Eosinophils # (Auto) 0.1, Basophils # (Auto) 0.0, Immature Granulocyte # (Auto) 0.1, Sodium Level 137, Potassium Level 3.5, Chloride Level 103, Carbon Dioxide Level 23, Anion Gap 11, Blood Urea Nitrogen 6, Creatinine 0.61, Estimat Glomerular Filtration Rate 104, BUN/Creatinine Ratio 10, Glucose Level 224, Calcium Level 8.8, Corrected Calcium 9.8, Phosphorus Level 3.4, Magnesium Level 1.9, Total Bilirubin 0.4, Aspartate Amino Transf (AST/SGOT) 12, Alanine Aminotransferase (ALT/SGPT) 12, Alkaline Phosphatase 57, Total Protein 5.3, Albumin 2.7 Discharge Home Medications: Active Scripts Active Novolog Flexpen (Insulin Aspart) 100 Unit/Ml (3 Ml) Solution 8 Units SQ AC 30 Days Levemir Flextouch (Insulin Detemir) 100 Unit/Ml (3 Ml) Insuln.pen 15 Unit SQ BID 30 Days Reported Alendronate Sodium 70 Mg Tablet 70 Mg PO SUN Instructions to patient/family Please see electronic discharge instructions given to patient. BRAD VASQUEZ DO Aug 12, 2022 06:51
[2022-08-12] MEDS ORDERED: PANTOPRAZOLE 40 MG (PROTONIX) TAB PO SCH (09:00)
[2022-08-12] MEDS: ENOXAPARIN 40 MG/0.4 ML (LOVENOX) SYR SC SCH (09:45)
[2022-08-12] MEDS: DOCUSATE SODIUM 100 MG (COLACE) CAP PO SCH (09:45)
[2022-08-12] MEDS: SODIUM BICARBONATE 650 MG TABLET PO SCH (09:45)
[2022-08-12 11:29] VITALS: BP 133/81
--- NOTE | 2022-08-12 13:25 | Progress Note ---
VINEET RODRIGUES 08/12/22 1325: Progress Note Radha Cain, 57 yo F with a past medical history of diabetes, breast cancer, and uterine fibroids, was transferred to [facility] from [facility] on 08/08/22 for altered mental status with COVID positive testing and likely DKA. Per ER report: 57-year-old female presents to the ER for generalized weakness and vomiting. She reports that 4 days ago she went to urgent care for vomiting but did not provide any further information about that visit. She reports that she has not been eating or drinking since then. No reports of abdominal pain, cough fevers or chills. Patient's labs were reviewed. Patient is critically ill. Patient with likely DKA and is also positive for COVID. Patient's labs were reviewed and had extremely low sodium, CO2 with elevated glucose of 666. Patient had elevated lipase likely reactive from COVID and DKA. Patient's white count and hemoglobin were both slightly elevated likely due to severe fluid deficit. Patient was started on IV fluids bolus normal saline bolus along with bicarb and half-normal saline. Patient was started on insulin drip. Patient's x-ray was reviewed and shows no acute findings. Discussed with Dr. Vasquez. Patient to be admitted to [facility] for further inpatient management. We discussed IV antibiotics but at this time with COVID and DKA is likely not bacterial and IV antibiotics are not indicated. Patient was transferred in critical condition via EMS." Urinary catheter was placed in FSED. Abdominal Series X-ray did not identify any acute abnormalities. During her hospital course, the patient was started on insulin detemir, thiamine, and folic acid. She was continuously monitored by a Tele-ICU Physician. Blood cultures resulted no growth. Urine culture resulted no growth. MRSA resulted Negative. Her mental status became much improved and anion gap began to close, therefore she was transferred to the Med-Surg floor. PT/OT was started on 08/10/22 for generalized weakness and debility. C. diff screening ordered on 08/10/22 was Negative. Chest X-ray on 08/10/22 impression was a finding of Mild right basilar atelectasis. No overt consolidation or pleural fluid. Today, Radha is laying in bed comfortably and in no distress. She denies any pain or concerns. She is able to ambulate independently. Toileting fine. She is eating but mostly consuming clear liquids. She is agreeable to being transferred to Inpatient Rehab. RENETTA VASQUEZ DO 08/13/22 0515: Supervisory-Addendum Brief Verification & Attestation Participated in pt care: history, MDM, physical Personally performed: exam, history, MDM, supervision of care Care discussed with: Medical Student Procedures: n/a Results interpretation: Verified all documentation Verification and Attestation of Medical Student E/M Service A medical student performed and documented this service in my presence. I reviewed and verified all information documented by the medical student and made modifications to such information, when appropriate. I personally performed the physical exam and medical decision making. Renetta Vasquez, Aug 13, 2022,05:15 VINEET RODRIGUES Aug 12, 2022 13:25 RENETTA VASQUEZ DO Aug 13, 2022 05:15
== END 2022-08-12 10:30 | DRG 177 ==
LOC: EDUNIT# 07:26 → ER FS 07:28 → ICU 08:33 → 4TH 08-11 21:27
PROVIDERS: ADMIT Internal Medicine; ATTEND Internal Medicine
PROC: 8E0ZXY6 Isolation (ICD-10-PCS; principal; 2022-08-08)
DX: U07.1 COVID-19 (principal); E11.10 Type 2 diabetes mellitus with ketoacidosis without coma; G93.49 Other encephalopathy; N39.0 Urinary tract infection, site not specified; E78.00 Pure hypercholesterolemia, unspecified; I10 Essential (primary) hypertension; E86.0 Dehydration; E87.6 Hypokalemia; E11.649 Type 2 diabetes mellitus with hypoglycemia without coma; E83.39 Other disorders of phosphorus metabolism; R19.7 Diarrhea, unspecified; D25.9 Leiomyoma of uterus, unspecified; Z79.84 Long term (current) use of oral hypoglycemic drugs; Z79.899 Other long term (current) drug therapy; Z79.82 Long term (current) use of aspirin; Z88.6 Allergy status to analgesic agent; Z88.5 Allergy status to narcotic agent
CPT/HCPCS: 36415; 36600; 71045; 74022; 80048; 80053; 81000; 82010; 82805; 82947; 83036; 83605; 83690; 83735; 84100; 84484; 85007; 85025; 85027; 86141; 87040; 87081; 87088; 87324; 87449; 87636

== ENCOUNTER 2022-08-11 16:57 | Inpatient (IN) | payer BC ==
[~2022-08-11] VITALS: Ht 165.1 cm; Wt 73.9 kg
[~2022-08-11 16:57] MED LIST changes: +ALEN70TA80 PO
[2022-08-12] MEDS ORDERED: INSU100I29 SQ (06:51)
[2022-08-12] MEDS ORDERED: INSU100I14 SQ (06:51)
[2022-08-12] MEDS ORDERED: diphenhydrAMINE 25 MG TAB (BENADRYL) PO PRN ×2 (07:00→11:45)
[2022-08-12] MEDS ORDERED: ACETAMINOPHEN 325 MG TABLET PO PRN ×2 (07:00→11:45)
[2022-08-12] MEDS ORDERED: CALCIUM CARBONATE 500 MG (TUMS) TAB.CHEW PO PRN (07:00)
[2022-08-12] MEDS ORDERED: DOCUSATE SODIUM 100 MG (COLACE) CAP PO PRN (07:00)
[2022-08-12] MEDS ORDERED: BISACODYL 10 MG SUPP (DULCOLAX) PR PRN ×2 (07:00→11:45)
[2022-08-12] MEDS ORDERED: MELATONIN 3 MG TABLET PO PRN ×2 (07:00→11:45)
[2022-08-12] MEDS ORDERED: FLEET ENEMA ADULT 1 EA BTL PR PRN (07:00)
[2022-08-12] MEDS ORDERED: ONDANSETRON 4 MG (ZOFRAN) ORAL DISSOLVE TAB PO PRN ×2 (07:00→11:45)
[2022-08-12] MEDS ORDERED: ALPRAZolam 0.25 MG (XANAX) TAB PO PRN (07:00)
[2022-08-12] MEDS ORDERED: LACTULOSE SYRUP 10GM/15ML (ENULOSE) 30ML UDC PO PRN (07:00)
[2022-08-12] MEDS ORDERED: NALOXONE 0.4 MG/ML 1 ML (NARCAN) VIAL IV PRN (07:00)
[2022-08-12] MEDS ORDERED: guaiFENesin/CODEINE (ROBITUSSIN AC) 10ML UDC PO PRN (07:00)
[2022-08-12] MEDS ORDERED: LOPERAMIDE 2 MG (IMODIUM) TABLET PO PRN (07:00)
[2022-08-12] MEDS ORDERED: DOCUSATE SODIUM 100 MG (COLACE) CAP PO SCH (09:00)
[2022-08-12 10:15] VITALS: BP 131/87
[2022-08-12] MEDS: polyethylene glycoL POWDER 17 GM (MIRALAX) PACK PO SCH ×2 (10:30→19:48)
[2022-08-12] MEDS: SENNA W/DOCUSATE (SENOKOT S) TABLET PO SCH ×2 (10:30→19:48)
--- OUTSIDE RECORDS SUMMARY | 2022-08-12 10:48 | XMS REPORT ---
Author Author [facility] Address Unknown Phone Unavailable Care Team Providers Care Recycler Name Role Phone OMARPARAG Unavailable PROBLEMS Type Condition ICD9-CM Code [id number] Code Onset Dates Condition S tatus W/U Status Risk SNOMED Code Notes Problem History of breast cancer Z85.3 confirmed 710045846 Problem Type 2 diabetes mellitus wit h other specified complication, without long-term current use of insulin E11.69 confirmed [id number] Problem Pure hyperglyceridemia E78.1 confirmed [id number] Problem HTN (hypertension), benign I10 confirmed [id number] Problem Anxiety F41.9 confirmed [id number] Problem Hypertriglyceridemia E78.1 confirmed [id number] Problem Type 2 diabetes mellitus E11.9 confirmed [id number] ALLERGIES No Known Allergies ENCOUNTERS from 1965 to 2022-08-10 Encounter Location Date Provider Diagnosis [address] [id number] [address] Sep, PARAG NELSON Encounter for immuni zation Z23 IMMUNIZATIONS Vaccine Route Administration Date Status 2nd Dose HRSA MODERNA, COVID-19, 0.5mL IM Intramuscular October Administered 1st Dose HRSA MODERNA, COVID-19, 0.5mL IM Intramuscular September Administered PRIVATE SHINGRIX (HERPES ZOSTER-2 DOSE) IM Intramuscular Apr 30, 2020 Administered PRIVATE SHINGRIX (HERPES ZOSTER-2 DOSE) IM Intramuscular Feb 20, 2020 Administered PRIVATE TDAP (BOOSTRIX) IM Intramuscular November 09, 2019 Adminis tered PRIVATE TDAP (ADACEL) Unknown January 23, 2010 Administer ed PRIVATE PPSV23 (PNEUMOVAX) IM Intramuscular November 09, 2019 Admi nistered PRIVATE PPSV23 (PNEUMOVAX) Unknown Apr 20, 2008 Admin istered SOCIAL HISTORY Sex Assigned At : Social History Observation Description Sex Assigned At Unknown Alcohol Screen (Audit-C) Question Answer Notes Did you have a drink containing alcohol in the past year? No Points 0 Interpretation Negative PHQ2 Question Answer Notes In the last 2 weeks, how often have you had little interest or pleasure in doing things? Not at all In the last 2 weeks, how often have you been feeling down, depressed, or hopeless? Not at all Total PHQ2 Score 0 Tobacco use other than smoking: Question Answer Notes Are you an other tobacco user? No REASON FOR REFERRAL No Information VITAL SIGNS No information MEDICATIONS Medication SIG (Take, Route, Frequency, Duration) Notes Start Da te End Date Status Glimepiride 4 MG 1 tablet Orally 2 times a day with meals for 90 Not-Taking Enalapril Maleate 5 MG 1 tablet Orally Once a day for 90 Not-Taking Fish Oil-Dha-Epa 1,200 Mg-144 Mg-216 Mg Capsule *please review for potential _update for e-prescription and drug interaction check* Not-Taking Farxiga 10 mg 1 tablet Orally Once a day for 90 Not-Taking Fosamax 70 MG 1 tablet Orally once weekly for 84 Active Ondansetron 4 MG 1 tablet on the tongue and a llow to dissolve Orally every 8 hours, PRN for 3 Aug, Active Gemfibrozil 600 MG TAKE ONE (1) TABLET BY MOUTH TWICE DAILY for 90 Not-Taking Calcium 600+D Plus Minerals 600-400 MG-UNIT 1/2 tablet Orally ev gideon other day Not-Taking Simvastatin 10 MG TAKE ONE (1) TABLET BY MOUTH ONCE DAILY IN THE EVENING for 90 Not-Taking metFORMIN HCl 500 MG 1 tab in AM and 2 tab in PM Orally as directed for 90 Not-Taking Vitamin D3 2000 UNIT Not- Taking Albuterol Sulfate Hfa 90 McG/Actuation Aerosol Inhaler prn Jun, Not-Taking Naproxen 500 MG 1 tablet with food or milk a s needed Orally every 12 hrs for 15 days Jul, Not-Taking PROCEDURES No Information RESULTS No Results REASON FOR VISIT 1st MOderna vacc MEDICAL (GENERAL) HISTORY Type Description Date Medical History type II diabetes Medical History hypertension Medical History hyperlipidemia Medical History breast cancer Surgical History cholecystectomy Surgical History lumpectomy, right breast Hospitalization History see surgeries Goals Section No Information Health Concerns No Information MEDICAL EQUIPMENT No Information MENTAL STATUS No Information FUNCTIONAL STATUS No Information ASSESSMENTS Encounter Date Diagnosis Assessment Notes Treatment Notes Treatm ent Clinical Notes Sep, Encounter for immunization (ICD-10 - Z23 ) PLAN OF TREATMENT Medication Medication Name Sig Start Date Stop Date Ondansetron 4 MG 1 tablet on the tongue and a llow to dissolve Orally every 8 hours, PRN for 3 Aug, Next Appt Details 4 Weeks Reason: Insurance Providers Payer Name Payer Address Payer Phone Insured Name Patient Relati onship to Insured Coverage Start Date Coverage End Date Subscriber Number Group Nu mber [facility] [address] [facility] [id number] Radha Cain Self - patient is the insured [id number] MEDICATIONS ADMINISTERED Medication Instructions Date of Administration Dosage DEXAMETHASONE 4MG/ML (PER 1 ML) May, 4 mg DEPO MEDROL 80 MG/ML May, 80 mg
--- OUTSIDE RECORDS SUMMARY | 2022-08-12 10:48 | XMS REPORT | Clinical Summary ---
Author Author [facility] Organization [facility] Address Unknown Phone Unavailable Care Team Providers Care Global Marketing Manager Name Role Phone Ryne Gordon MD PCP Unavailable Ad Turner MD Unavailable Source Comments Some departments are not documenting in the electronic medical record. If you d o not see the information that you expected, contact Release of Information in [facility] Information Management department at [phone] for further assistan ce in locating additional records.[facility] Allergies No known active allergies Medications End Date Status Medication Sig Dispensed Refills Start Date Active tamoxifen (NOLVADEX) 10 Take 20 mg by 0 mg PO tablet mouth Daily. Active vitamin E 100 unit PO Cap Take 400 0 Units by mouth Daily. Active metformin (GLUCOPHAGE) Take 500 mg 0 500 mg PO tablet by mouth Twice Daily With Meals. Active aspirin EC 81 mg PO Take 81 mg by 0 tablet mouth Daily. Active fish oil /omega-3 fatty Take 1,000 mg 0 acids (SEA-OMEGA) by mouth 340/1000 mg PO Cap Twice Daily With Meals. Active paroxetine (PAXIL) 10 mg Take 10 mg by 0 PO tablet mouth Daily. Active oxycodone/acetaminophen Take 1-2 Tabs 30 Tab 0 (PERCOCET) 5/325 mg PO by mouth 0 tablet Every 4 Hours as needed for Pain. Active senna/docusate Take 1 Tab by 30 Tab 0 (SENOKOT-S) 8.6/50 mg PO mouth Daily. 0 tablet Active bacitracin 500 unit/g TP Apply to 1 Container 0 1 topical ointment affected area 0 Twice Daily. Active Problems Problem Noted Date Breast reduction 04/24/2010 Family History Medical History Relation Name Comments Arthritis-osteo Mother Thyroid Disease Mother Relation Name Status Comments Mother Social History Date Tobacco Use Types Packs/Day Years Used Quit: 07/05/2000 Smoking Tobacco: Former Cigarettes 1 25 Comments Alcohol Use Standard Drinks/Week No 0 (1 standard drink = 0.6 o z pure alcohol) Sex Assigned at Date Recorded Not on file Obstetrics History Last Filed Vital Signs Reading Time Taken Comments Vital Sign 151/80 04/24/2010 7:39 AM CDT Blood Pressure 85 04/24/2010 7:39 AM CDT Pulse 36.7 C (98 F) 04/24/2010 7:39 AM CDT Temperature - - Respiratory Rate 96% 04/24/2010 7:39 AM CDT Oxygen Saturation - - Inhaled Oxygen Concentration 108.9 kg (240 lb) 04/23/2010 9:00 AM CDT Weight 165.1 cm (5' 5") 04/23/2010 9:00 AM CDT Height 39.94 04/23/2010 9:00 AM CDT Body Mass Index Plan of Treatment Health Maintenance Due Date Last Done Comments COVID-19 VACCINE (#1) 01/09/1966 HIV SCREENING 1980 DTAP/TDAP VACCINES (1 - 1983 Tdap) HEPATITIS C SCREENING 1983 PHYSICAL (COMPREHENSIVE) 1983 EXAM CERVICAL CANCER SCREENING 1986 BREAST CANCER SCREENING 2005 COLORECTAL CANCER 2010 SCREENING SHINGLES RECOMBINANT 2015 VACCINE (1 of 2) INFLUENZA VACCINE (#1) 2022 DEPRESSION SCREENING 07/05/2022 Results Not on filefrom Last 3 Months Care Teams Start Date End Date Global Marketing Manager Relationship Specialty 04/23/10 Ryne Gordon MD PCP - General Forwarding Address Unknown 05/05/10 Ad Turner MD [address] [facility] [place] [address]
--- NOTE | 2022-08-12 10:52 | Physical Therapy Evaluation ---
PT Evaluation-General Medical Diagnosis Admission Date Aug 12, 2022 at 10:15 Medical Diagnosis: DKA, AMS, COVID (+) Onset Date: Aug 08, 2022 Therapy Diagnosis Therapy Diagnosis: Strength deficit, decline in balance Precautions Precautions/Isolations: Droplet Isolation, Fall Prevention, Standard Precautions Weight Bear Status Right Lower Extremity: Right Full Weight Bearing Left Lower Extremity: Left Full Weight Bearing Referral Physician: Dr. Vasquez Reason for Referral: Evaluation/Treatment Medical History Pertinent Medical History: DM Reviewed History: Yes Social History Home: Single Level Current Living Status: Significant Other Entry Into Home: Stairs Without Railing PT Steps Into Home: 1 Prior Prior Level of Function SCALE: Activities may be completed with or without assistive devices. 6-Ocajqliqmn-uwubjmo completes the activity by him/herself with no assistance from a helper. 5-Set-up or Clean-up Assistance-helper sets up or cleans up; patient completes activity. Dennis assists only prior to or following the activity. 4-Supervision or Touching Assistance-helper provides verbal cues and/or touching/steadying and/or contact guard assistance as patient completes activi ty. Assistance may be provided throughout the activity or intermittently. 3-Partial/Moderate Assistance-helper does LESS THAN HALF the effort. Dennis lifts, holds or supports trunk or limbs, but provides less than half the effort. 2-Substantial/Maximal Assistance-helper does MORE THAN HALF the effort. Dennis lifts or holds trunk or limbs and provides more than half the effort. 3-Zcitxbufo-hmcufs does ALL the effort. Patient does none of the effort to complete the activity. Or, the assistance of 2 or more helpers is required for the patient to complete the activity. If activity was not attempted, code reason: 7-Patient Refused. 9-Not Applicable-not attempted and the patient did not perform the activity before the current illness, exacerbation or injury. 10-Not Attempted due to Environmental Limitations-(lack of equipment, weather restraints, etc.). 88-Not Attempted due to Medical Conditions or Safety Concerns. Bed Mobility: 6 Transfers (B,C,W/C): 6 Gait: 6 Stairs: 6 Indoor Mobility (Ambulation): Independent Stairs: Independent Prior Devices Use: None PT Evaluation-Current Subjective Patient lying supine in bed upon PT arrival, agreeable to treatment. Patient reports 0/10 pain currently. Pain Section J - Health Conditions 1. Rarely or not at all 2. Occasionally 3. Frequently 4. Almost constantly 8. Unable to answer Pain Effect on Sleep: 1 Pain Interference with Therapy: 1 Pain Interference w/Day-to-Day: 1 Pt/Family Goals Return home Objective Patient Orientation: Person, Place, Time, Situation ROM/Strength ROM Lower Extremities WFLs bilateral LEs Strength Lower Extremities 3+/5 bilateral Hip flexion and knee extension. All other planes 4+/5 bilaterally. Sensory Vision: Functional Hearing: Functional Sensation Right Lower Extremit: Intact Sensation Left Lower Extremity: Intact Transfers Roll Left & Right (QC): 6 Sit to Lying (QC): 5 Lying to Sitting/Side of Bed(Q: 5 Sit to Stand (QC): 5 Chair/Yce-hw-Wgwiz Xfer(QC): 5 Toilet Transfer (QC): 5 Car Transfer (QC): 5 Gait Does the Patient Walk?: Yes Mode of Locomotion: Walk Anticipated Mode of Locomotion: Walk Walk 10 feet (QC): 6 Walk 50 ft with 2 Turns(QC): 6 Walk 150 ft (QC): 4 Walking 10ft/uneven surface-QC: 99 Distance: 250 feet Gait Assistive Device: None Wheelchair Training Does the Pt Use a Wheelchair?: No Wheel 50 ft with 2 turns (QC): 9 Wheel 150 ft (QC): 9 Stairs #of Steps: 0 1 Step (curb) (QC): 88 4 Steps (QC): 88 12 Steps (QC): 88 Balance Sitting Static: Normal Sitting Dynamic: Normal Standing Static: Good Standing Dynamic: Fair Picking up an Object (QC): 4 Assessment/Needs Patient tolerated treatment well. Demonstrates [place] to Setup with all bed mobility and transfers. Patient ambulates sans AD, 250 feet with SBA and verbal cues for progression. Patient demonstrates mild decline in balance initially upon entering the halls, however is able to self-correct and does not require intervention from PT. Patient performs LE therapeutic exercise of AP, LAQs, hamstring curls, marching, hip abduction and hip adduction with pillow, x 20 reps each. Patient in chair post treatment with all needs met, nursing notified, call light in hand and OT entering the room for evaluation and treatment. Rehab Potential: Good PT [facility] Goals [place] Goals PT [facility] Goals Time Frame: Aug 22, 2022 Roll Left to Right (QC): 6 Sit to Lying (QC): 6 Lying-Sitting on Side/Bed(QC): 6 Sit to Stand (QC): 6 Chair/Hmu-nf-Qvtay Xfer(QC): 6 Toilet/Commode Transfer (QC): 6 Car Transfer (QC): 6 Does the Patient Walk: Yes Walk 10 feet (QC): 6 Walk 10ft-Uneven Surface(QC): 6 Walk 50ft with 2 Turns (QC): 6 Walk 150 ft (QC): 6 Wheel 50 feet with 2 turns (QC: 9 Wheel 150 feet: 9 1 Step (curb) (QC): 6 4 Steps (QC): 6 12 Steps (QC): 6 Picking up an Object (QC): 6 PT Plan Problem List Problem List: Activity Tolerance, Functional Strength, Safety, Balance, Gait, Transfer, Bed Mobility Treatment/Plan Treatment Plan: Continue Plan of Care Treatment Plan: Education, Functional Activity Tiera, Functional Strength, Group Therapy, Gait, Safety, Therapeutic Exercise, Transfers Treatment Duration: Sep 01, 2022 Frequency: At least 5 of 7 days/Wk (IRF) Estimated Hrs Per Day: 1.5 hours per day Patient and/or Family Agrees t: Yes Safety Risks/Education Patient Education: Gait Training, Transfer Techniques Teaching Recipient: Patient Teaching Methods: Demonstration, Discussion Response to Teaching: Verbalize Understanding, Return Demonstration Time Time In: 1015 Time Out: 1040 DATE: Aug 12, 2022 Total Billed Treatment Time: 25 Total Billed Treatment Visit, Crystal Pederson JOHN A PT Aug 12, 2022 10:52
--- NOTE | 2022-08-12 10:59 | Occupational Therapy Eval ---
OT Evaluation-General/PLF Medical Diagnosis Admission Date Aug 12, 2022 at 10:15 Medical Diagnosis: DKA, AMS, COVID (+) Onset Date: Aug 08, 2022 Therapy Diagnosis Therapy Diagnosis: weakness/debility Precautions Precautions/Isolations: Droplet Isolation, Fall Prevention, Standard Precautions Weight Bear Status Weight Bearing Restriction: Weight Bearing/Tolerated Referral Referral Reason: Activity Tolerance, Self Care, Evaluation/Treatment, Strengthening/ROM Medical History Pertinent Medical History: DM Current History Covid, DKA Social History Home: Single Level Current Living Status: Significant Other ADL-Prior Level of Function SCALE: Activities may be completed with or without assistive devices. 2-Xgkwbomyyw-tgraxww completes the activity by him/herself with no assistance from a helper. 5-Set-up or Clean-up Assistance-helper sets up or cleans up; patient completes activity. [place] assists only prior to or following the activity. 4-Supervision or Touching Assistance-helper provides verbal cues and/or touching/steadying and/or contact guard assistance as patient completes activity. Assistance may be provided throughout the activity or intermittently. 3-Partial/Moderate Assistance-helper does LESS THAN HALF the effort. Monarch lifts, holds or supports trunk or limbs, but provides less than half the effort. 2-Substantial/Maximal Assistance-helper does MORE THAN HALF the effort. [place] lifts or holds trunk or limbs and provides more than half the effort. 9-Emkxeqbwu-pgrnfo does ALL the effort. Patient does none of the effort to complete the activity. Or, the assistance of 2 or more helpers is required for the patient to complete the activity. If activity was not attempted, code reason: 7-Patient Refused. 9-Not Applicable-not attempted and the patient did not perform the activity before the current illness, exacerbation or injury. 10-Not Attempted due to Environmental Limitations-(lack of equipment, weather restraints, etc.). 88-Not Attempted due to Medical Conditions or Safety Concerns. ADL PLOF Comments PLOF at home Self Care: Independent Functional Cognition: Independent Drive Self: Yes OT Current Status Subjective Feeling better and more like herself Pain Numeric Pain Scale: 0-No Pain Mental Status/Objective Patient Orientation: Person, Place, Time, Situation Current Upper Extremity ROM BUE WNLs Upper Extremity Coordination BUE WFLS for GMC /FMC slightly involved Upper Extremity Strength -4/5 BUE grossly ADL-Treatment ADL-Current disrobe for shower, Eating (QC): 6 Oral Hygiene (QC): 5 Shower/Bathe Self (QC): 5 Upper Body Dressing (QC): 4 Lower Body Dressing (QC): 4 On/Off Footwear (QC): 5 Toileting Hygiene (QC): 5 mild cognition impairment, delayed organization of thought and problem solving Education OT Patient Education: Correct positioning, Disease process, Energy conserva tion, Modified ADL techniques, Progress toward Goal/Update tx plan, Purpose of tx/functional activities, Reviewed precautions, Rehab process, Safety issues, Transfer techniques, Use of adapted equipment Teaching Recipient: Patient Teaching Methods: Demonstration, Discussion Response to Teaching: Verbalize Understanding, Return Demonstration, Reinforcement Needed BIMS CAM BIMS Expression of Ideas and Wants: Without Difficulty Understanding Verbal Content: Understands Brief Interview/Mental Status: No IRF JOHN BIMS: IRF JOHN BIMS Response (Comments) Value Repitition of Three Words Three 3 Recalls Socks No, Could Not Recall 0 Recalls Blue Yes, After Cueing (Color) 1 Recalls Bed No, Could Not Recall 0 Year Correct 3 Month Accurate Within 5 Days 2 Day Correct 1 Total 10 Patient Normally Able to Recal: Current Session, That he/she in a hsp Should Staff Asses. Mental St.: No Memory/Recall Ability: Current Season, That He[facility]She in [facility] OT Short Term Goals Short Term Goals Time Frame: Aug 22, 2022 Eatin Oral hygiene: 6 Toileting hygiene: 6 Shower/bathe self: 5 Upper body dressin Lower body dressin Putting on/taking off footwear: 6 OT Population Geneticist Goals Population Geneticist Goals Eating (QC): 6 Oral Hygiene (QC): 6 Toileting Hygiene (QC): 6 Shower/Bathe Self (QC): 6 Upper Body Dressing (QC): 6 Lower Body Dressing (QC): 6 On/Off Footwear (QC): 6 Additional Goals: 3-ImproveStrength/Tiera 1=Demonstrate adherence to instructed precautions during ADL tasks. 2=Patient will verbalize/demonstrate understanding of assistive devices/modifications for ADL. 3=Patient will improve strength/tolerance for activity to enable patient to perform ADL's. OT Education/Plan Problem List/Assessment Assessment: Decreased Activ Tolerance, Decreased UE Strength, Impaired Coordination, Impaired Funct Balance, Impaired I ADL's, Impaired Self-Care Skills Discharge Recommendations Plan/Recommendations: Continue POC Therapy Discharge Recommendati: Home & Family Treatment Plan/Plan of Care Treatment,Training & Education: Yes Patient would benefit from OT for education, treatment and training to promote independence in ADL's, mobility, safety and/or upper extremity function for ADL's. Plan of Care: ADL Retraining, Cognitive Retraining, Concurrent Therapy, Functional Mobility, Group Exercise/Act as Ind, UE Funct Exercise/Act Treatment Duration: Sep 12, 2022 Frequency: Modified Program (IRF) Estimated Hrs Per Day: 1.5 hours per day Rehab Potential: Good Time Start Time: 10:40 Stop Time: 10:50 DATE: Aug 12, 2022 Total Time Billed (hr/min): 10 Billed Treatment Time 1 EVM 10 min ABNER CADENA OT Aug 12, 2022 10:59
[2022-08-12] MEDS ORDERED: LORazepam INJ 2 MG/ML (ATIVAN) VIAL IVP PRN (11:45)
[2022-08-12] MEDS ORDERED: ANTACID SUSP 30 ML UDC (MYLANTA) PO PRN (11:45)
[2022-08-12] MEDS ORDERED: polyethylene glycoL POWDER 17 GM (MIRALAX) PACK PO PRN (11:45)
[2022-08-12] MEDS ORDERED: ONDANSETRON 4 MG/2 ML (SDV) Z0FRAN IV PRN (11:45)
[2022-08-12] MEDS ORDERED: HYDROmorphone 2 MG/ML VIAL (DILAUDID) IV PRN (11:45)
[2022-08-12] MEDS ORDERED: LORazepam 0.5 MG (ATIVAN) TABLET PO PRN (11:45)
[2022-08-12] MEDS ORDERED: HYDROcodone/APAP 5 MG/325 MG (LORTAB) TAB PO PRN (11:45)
[2022-08-12] MEDS ORDERED: diphenhydrAMINE 50 MG/ML INJ (BENADRYL) IVP PRN (11:45)
[2022-08-12 11:57] VITALS: BP 145/70
--- NOTE | 2022-08-12 12:00 | Occupational Ther Daily Note ---
OT Current Status-Daily Note Subjective Pt alert, sitting in recliner. Took over care from OTR/L. Pt agrees to therapy. Mental Status/Objective Patient Orientation: Person, Place, Time, Situation Attachments: IV (2) ADL-Treatment Pt agrees to shower. Pt completed shower by self after set up/clean up using shower bench, grabbars and hand held shower. SBA for all dressing. Pt sitting at sink due to fatigue, completed oral care independently. Pt able to retrieve items from counter and take to recliner with SBA. Pt took increased time to complete tasks due to decreased activity tolerance. After session, pt sitting in recliner with call light/phone in reach. All needs met in room. Therapy Code Descriptions/Definitions Functional [place] Measure: 0=Not Assessed/NA 4=Minimal Assistance 1=Total Assistance 5=Supervision or Setup 2=Maximal Assistance 6=Modified [place] 3=Moderate Assistance 7=Complete IndependenceSCALE: Activities may be completed with or without assistive devices. 9-Xfcojiszqv-mvvzryb completes the activity by him/herself with no assistance from a helper. 5-Set-up or Clean-up Assistance-helper sets up or cleans up; patient completes activity. [place] assists only prior to or following the activity. 4-Supervision or Touching Assistance-helper provides verbal cues and/or abundio blanka/steadying and/or contact guard assistance as patient completes activity. Assistance may be provided throughout the activity or intermittently. 3-Partial/Moderate Assistance-helper does LESS THAN HALF the effort. [place] lifts, holds or supports trunk or limbs, but provides less than half the effort. 2-Substantial/Maximal Assistance-helper does MORE THAN HALF the effort. [place] lifts or holds trunk or limbs and provides more than half the effort. 0-Hkqgpatjy-ghbyzi does ALL the effort. Patient does none of the effort to complete the activity. Or, the assistance of 2 or more helpers is required for the patient to complete the activity. If activity was not attempted, code reason: 7-Patient Refused. 9-Not Applicable-not attempted and the patient did not perform the activity before the current illness, exacerbation or injury. 10-Not Attempted due to Environmental Limitations-(lack of equipment, weather restraints, etc.). 88-Not Attempted due to Medical Conditions or Safety Concerns. Oral Hygiene (QC): 6 (In sitting.) Shower/Bathe Self (QC): 5 Upper Body Dressing (QC): 4 Lower Body Dressing (QC): 4 On/Off Footwear: 4 OT Short Term Goals Short Term Goals Time Frame: Aug 22, 2022 Eatin Oral hygiene: 6 Toileting hygiene: 6 Shower/bathe self: 5 Upper body dressin Lower body dressin Putting on/taking off footwear: 6 OT Weather Forecaster Goals Intermediate Goals Eating (QC): 6 Oral Hygiene (QC): 6 Toileting Hygiene (QC): 6 Shower/Bathe Self (QC): 6 Upper Body Dressing (QC): 6 Lower Body Dressing (QC): 6 On/Off Footwear (QC): 6 Additional Goals: 3-ImproveStrength/Tiera 1=Demonstrate adherence to instructed precautions during ADL tasks. 2=Patient will verbalize/demonstrate understanding of assistive devices/modifications for ADL. 3=Patient will improve strength/tolerance for activity to enable patient to perform ADL's. OT Education/Plan Problem List/Assessment Assessment: Decreased Activ Tolerance, Impaired Self-Care Skills Discharge Recommendations Plan/Recommendations: Continue POC Treatment Plan/Plan of Care Patient would benefit from OT for education, treatment and training to promote independence in ADL's, mobility, safety and/or upper extremity function for ADL's. Plan of Care: ADL Retraining, Cognitive Retraining, Concurrent Therapy, Functional Mobility, Group Exercise/Act as Ind, UE Funct Exercise/Act Treatment Duration: Sep 12, 2022 Frequency: 5 times per week Estimated Hrs Per Day: 1.5 hours per day Rehab Potential: Good Time Start Time: 10:50 Stop Time: 12:00 DATE: Aug 12, 2022 Total Time Billed (hr/min): 70 Billed Treatment Time 1 visit-ADL 5 (70 min) TRACY LI Aug 12, 2022 11:59
[2022-08-12] MEDS: inSUlin ASPART (NovoLOG) 1 UNIT/0.01 ML (CHARGE PER UNIT) SC SCH ×4 (12:45→21:04)
--- NOTE | 2022-08-12 13:18 | PM&R Post Admission Assessment ---
PM&R HP Date of Visit: Aug 12, 2022 Time of Visit: 12:00 History of Present Illness CC: Brain dysfunction of encephalopathy from COVID and DKA with new onset DM HPI: ICU DC summary: Radha Cain, 57 yo F with a past medical history of diabetes, breast cancer, and uterine fibroids, was transferred to [facility] from [facility] on 08/08/22 for altered mental status with COVID positive testing and likely DKA. Per ER report: 57-year-old female presents to the ER for generalized weakness and vomiting. She reports that 4 days ago she went to urgent care for vomiting but did not provide any further information about that visit. She reports that she has not been eating or drinking since then. No reports of abdominal pain, cough fevers or chills. Patient's labs were reviewed. Patient is critically ill. Patient with likely DKA and is also positive for COVID. Patient's labs were reviewed and had extremely low sodium, CO2 with elevated glucose of 666. Patient had elevated lipase likely reactive from COVID and DKA. Patient's white count and hemoglobin were both slightly elevated likely due to severe fluid deficit. Patient was started on IV fluids bolus normal saline bolus along with bicarb and half-normal saline. Patient was started on insulin drip. Patient's x-ray was reviewed and shows no acute findings. Discussed with Dr. Vasquez. Patient to be admitted to [facility] ICU for further inpatient management. We discussed IV antibiotics but at this time with COVID and DKA is likely not bacterial and IV antibiotics are not indicated. Patient was transferred in critical condition via EMS." Urinary catheter was placed in FSED. Abdominal Series X-ray did not identify any acute abnormalities. During her hospital course, the patient was started on insulin detemir, thiamine, and folic acid. She was continuously monitored by a Tele-ICU Physician. Blood cultures resulted no growth. Urine culture resulted no growth. MRSA resulted Negative. Her mental status became much improved and anion gap began to close, therefore she was transferred to the Med-Surg floor. PT/OT was started on 08/10/22 for generalized weakness and debility. C. diff screening ordered on 08/10/22 was Negative. Chest X-ray on 08/10/22 impression was a finding of Mild right basilar atelectasis. No overt consolidation or pleural fluid. Today, Radha is laying in bed comfortably and in no distress. She denies any pain or concerns. She is able to ambulate independently. Toileting fine. She is eating but mostly consuming clear liquids. She is agreeable to being transferred to Inpatient Rehab. VINEET RODRIGUES Past Gioafqz-Apbbln-Viryst Hx Past Med/Social Hx: Reviewed Nursing Past Med/Soc Hx, Reviewed and Corrections made Patient Social History Marrital Status: Employed/Student: employed Alcohol Use: Denies Use Smoking Status: Never a Smoker Immunizations Up To Date Date of Pneumonia Vaccine: Jun 17, 2008 Date of Influenza Vaccine: Apr 15, 2022 Past Medical History Surgeries: Breast Cardiac: High Cholesterol, Hypertension Reproductive: Yes (UTERINE FIBROIDS) Musculoskeletal: Osteoporosis Endocrine: Diabetes, Non-Insulin dep Prior Level of Function Bed Mobility: 6 Transfers: 6 Gait: 6 Stairs: 6 Indoor Mobility (Ambulation): Independent Stairs: Independent Prior Devices Use: None Self Care: Independent Functional Cognition: Independent Drive Self: Yes Current Level of Fuctioning Roll Left to Right: 6 Sit to Lyin Lying to Sitting/Side of Bed: 5 Sit to Stand: 5 Chair/Ayc-zu-Wohfu Xfer: 5 Car Transfer: 5 Does the Patient Walk: Yes Mode of Locomotion: Walk Anticipated Mode of Locomotion: Walk Walk 10 feet: 6 Walk 50 ft with 2 Turns: 6 Walk 150 ft: 4 Walking 10ft on uneven surface: 99 Gait Assistive Device: None Does the Pt Use a Wheelchair: No Wheel 50 ft with 2 turns: 9 Wheel 150 ft: 9 #of Steps: 0 1 Step (curb): 88 4 Steps: 88 12 Steps: 88 Picking up an Object: 4 Eatin Oral Hygiene: 6 (In sitting.) Shower/Bathe Self: 5 Upper Body Dressin Lower Body Dressin On/Off Footwear: 4 Toileting Hygiene: 5 PM&R Allergy/Meds/Data Review Allergies Coded Allergies: oxycodone HCl (Unverified Allergy, Unknown, RASH, 07/02/20) Home Medications Scheduled Alendronate Sodium (Alendronate Sodium), 70 MG PO SUN, (Reported) Insulin Aspart (Novolog Flexpen), 8 UNITS SQ AC Insulin Detemir (Levemir Flextouch), 15 UNIT SQ BID Discontinued Medications Aspirin (Aspirin Ec 81 Mg), 81 MG PO DAILY, (Reported) Discontinued Reason: No Longer Taking Enalapril Maleate (Enalapril Maleate), 5 MG PO DAILY, (Reported) Discontinued Reason: No Longer Taking Gemfibrozil (Gemfibrozil), 1 EACH PO BID, (Reported) Discontinued Reason: No Longer Taking Glimepiride (Glimepiride), 4 MG PO DAILY, (Reported) Discontinued Reason: No Longer Taking Hydrocodone Bit/Ibuprofen (Hydrocodone Bt-Ibuprofen Tab), 1-2 EACH PO Q4H PRN, (Reported) Discontinued Reason: No Longer Taking Metformin Hcl (Metformin 500 Mg), 1 EACH PO BID WITH MEALS, (Reported) Discontinued Reason: No Longer Taking Bellflower-3/Dha/Epa/Fish Oil (Fish Oil Bellflower-3 1,360 Mg Sfgl), 1 EACH PO BID, (Reported) Discontinued Reason: No Longer Taking Tamoxifen Citrate (Tamoxifen Citrate), 20 MG PO DAILY, (Reported) Discontinued Reason: No Longer Taking Vitamin E Mixed (Vitamin E), 400 UNIT PO DAILY, (Reported) Discontinued Reason: No Longer Taking Current Medications Current Medications Reviewed Laboratory Data Laboratory Tests 08/12/22 11:52: Glucometer 258H Review of Systems Constitutional: see HPI, malaise, weakness EENTM: no symptoms reported Respiratory: no symptoms reported Cardiovascular: no symptoms reported Gastrointestinal: no symptoms reported Genitourinary: no symptoms reported Musculoskeletal: no symptoms reported, muscle pain, muscle stiffness, muscle cramps Skin: no symptoms reported Psychiatric/Neurological: No Symptoms Reported All Other Systems Reviewed Negative Unless Noted: Yes Physical Exam Physical Exam Vital Signs Vital Signs - First Documented 08/12/22 10:15 Temp 36.2 Pulse 118 Resp 18 B/P (MAP) 131/87 (102) Pulse Ox 98 O2 Delivery Room Air Capillary Refill : Height, Weight, BMI Height: '" Weight: lbs. oz. kg; 28.06 BMI Method: General Appearance: No Apparent Distress, WD/WN, Chronically ill Eyes: Bilateral Eye Normal Inspection, Bilateral Eye PERRL HEENT: PERRL/EOMI, Normal ENT Inspection, Pharynx Normal Neck: Full Range of Motion, Normal Inspection, Non Tender, Supple, Carotid Bruit Respiratory: Chest Non Tender, Lungs Clear, Normal Breath Sounds, No Accessory Muscle Use, No Respiratory Distress Cardiovascular: Regular Rate, Rhythm, No Edema, No Gallop, No JVD, No Murmur, Normal Peripheral Pulses Gastrointestinal: Normal Bowel Sounds, No Organomegaly, No Pulsatile Mass, Non Tender, Soft Back: Normal Inspection, No CVA Tenderness, No Vertebral Tenderness Extremity: Normal Capillary Refill, Normal Inspection, Normal Range of Motion, Non Tender, No Calf Tenderness, No Pedal Edema Neurologic/Psychiatric: Alert, Oriented x3 (mild delay in processing), No Motor/Sensory Deficits, Normal Mood/Affect, monitoring manager II-XII Norm as Tested, Motor Weakness (generalized) Skin: Normal Color, Warm/Dry Lymphatic: No Adenopathy PM&R Medical Assessment & Plan REHAB/MEDICAL ASSESSMENT AND PLAN: REHAB IMPAIRMENT GROUP: Encephalopathy ETIOLOGIC DIAGNOSIS: Encephalopathy The comorbidities that impact the patients function and/or functional outcome by: new diabetes insulin dependent, h/o breast cancer, weakness, confusion REHAB PLAN: The patient is being admitted to our comprehensive inpatient rehabilitation facility and can tolerate the intensity of service consisting of at least: 180 minutes of therapy a day, 5 out of 7 days a week Rehab treatment will consist of: PT OT will focus on regaining motor strength and increase stamina while allowing encephalopathy to clear in order to return home The patient/family has a good understanding of our discharge process and will benefit from an interdisciplinary inpatient rehabilitation program. The patient has potential to make improvement and is in need of at least two of the following multidisciplinary therapies including but not limited to physical, occupational, speech, and prosthetics and orthotics. Additionally the patient will need services from respiratory, nutritional services, wound care, psychology, etc. (Customize this to each patient). Given the patients complex condition and risk of further medical complications, rehabilitation services cannot be safely or effectively provided at a lower level of care such as a retirement facility. BARRIERS TO DISCHARGE: New DM ESTIMATED LOS: 7 days DISPOSITION: Home RELEVANT CHANGES SINCE PREADMISSION SCREENING: I have compared the patients medical and functional status at the time of the preadmission screening and there are: no changes PROGNOSIS: Good REHABILITATION GOALS: 1. PT OT will focus on regaining motor strength and increase stamina while allowing encephalopathy to clear in order to return home All the above goals were reviewed with the patient and he/she is in agreement. By signing this document, I acknowledge that I have personally performed a full physical examination on this patient within 24 hours of admission to this inpatient rehabilitation facility and have determined the patient to be able to tolerate the above course of treatment at an intensive level for a reasonable period of time. I will be completing a detailed individualized Plan of Care for this patient by day #4 of the patients stay based upon the Preadmission Screen, the Post-Admission Evaluation, and the therapy evaluations. Admission Dx/Comorbidities: (1) Encephalopathy ICD Codes: G93.40 - Encephalopathy, unspecified (2) DKA (diabetic ketoacidosis) Status: Acute ICD Codes: E11.10 - Type 2 diabetes mellitus with ketoacidosis without coma (3) COVID Status: Acute ICD Codes: U07.1 - COVID-19 Assessment/Plan Assessment and Plan Assess & Plan/Chief Complaint Assessment: Brain dysfunction of encephalopathy from COVID and DKA with new onset DM Weakness Breast cancer HTN HLP OP Plan: Insulin PT OT DM education Monitor BRAD Cortés DO Aug 12, 2022 13:18
[2022-08-12 13:23] VITALS: BP 145/70
[2022-08-12] MEDS ORDERED: RT-ALBUTEROL SULF 2.5 MG/3 ML PRE-MIX VIAL INH PRN (13:30)
--- NOTE | 2022-08-12 14:02 | Physical Therapy Daily Note ---
PT Daily Note-Current Subjective Pt. agrees to Rx, states she has made remarkable progress in last 36 hrs. Pt. feels well except for some fatigue . Pt. requests permission to be up ad shay in room for toileting etc. No pain c/o Pain Location: No Pain Reported Section J - Health Conditions 1. Rarely or not at all 2. Occasionally 3. Frequently 4. Almost constantly 8. Unable to answer Pain Effect on Sleep: 1 Pain Interference with Therapy: 1 Pain Interference w/Day-to-Day: 1 Mental Status Patient Orientation: Normal For Age Transfers SCALE: Activities may be completed with or without assistive devices. 5-Qhzgbxtvhd-cpztagq completes the activity by him/herself with no assistance from a helper. 5-Set-up or Clean-up Assistance-helper sets up or cleans up; patient completes activity. [place] assists only prior to or following the activity. 4-Supervision or Touching Assistance-helper provides verbal cues and/or touching/steadying and/or contact guard assistance as patient completes activity. Assistance may be provided throughout the activity or intermittently. 3-Partial/Moderate Assistance-helper does LESS THAN HALF the effort. [place] lifts, holds or supports trunk or limbs, but provides less than half the effort. 2-Substantial/Maximal Assistance-helper does MORE THAN HALF the effort. [place] lifts or holds trunk or limbs and provides more than half the effort. 6-Dhbxttevx-lulryg does ALL the effort. Patient does none of the effort to complete the activity. Or, the assistance of 2 or more helpers is required for the patient to complete the activity. If activity was not attempted, code reason: 7-Patient Refused. 9-Not Applicable-not attempted and the patient did not perform the activity before the current illness, exacerbation or injury. 10-Not Attempted due to Environmental Limitations-(lack of equipment, weather restraints, etc.). 88-Not Attempted due to Medical Conditions or Safety Concerns. Roll Left & Right (QC): 6 Sit to Lying (QC): 6 Lying to Sitting/Side of Bed(Q: 6 Sit to Stand (QC): 6 Chair/Kuk-mx-Paikh Xfer(QC): 6 Toilet Transfer (QC): 6 Weight Bearing Right Lower Extremity: Right Full Weight Bearing Left Lower Extremity: Left Full Weight Bearing Gait Training Does the Patient Walk?: Yes Walk 10 feet (QC): 6 Walk 50 ft with 2 Turns(QC): 6 Walk 150 ft (QC): 6 Gait Persons Needed: 0 Gait Assistive Device: None balance intact for gait about room with several tight turns in limited spaces. No LOB or incident Exercises Supine Ex: Bridging, Ankle pumps, Quad Set, Rolling, Glut sets, Lower trunk rotation, Heel Slides, Short Arc Quads, Scooting, Straight leg raise, Hip abd/add Supine Reps: 20 Seated Therapy Exercises: Ankle pumps, Sit to stand, Long arc quads, Hip flexion, Hip abd/add Seated Reps: 20 side lying clam shells and hip abduction x 10 x2 bilat in addition to above ex Neuromuscular standing reach test, SLS test, narrow based test, eyes closed etc, no LOB Treatments ex in sit and supine, gait, balance tests, introduction to recline chair for head back etc, pt in bed after Rx with call noriega after Rx Assessment Current Status: Good Progress no LOB, no pain, tolerated all of Rx well. 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 Goals Assisted Goals PT Assisted Goals Time Frame: Aug 22, 2022 Roll Left & Right (QC): 6 Sit to Lying (QC): 6 Lying-Sitting on Side/Bed(QC): 6 Sit to Stand (QC): 6 Chair/Cow-qt-Riven Xfer(QC): 6 Toilet Transfer (QC): 6 Car Transfer (QC): 6 Does the Patient Walk: Yes Walk 10 feet (QC): 6 Walk 50ft with 2 Turns (QC): 6 Walk 150 ft (QC): 6 Walking 10ft on Uneven Surface: 6 1 Step (curb) (QC): 6 4 Steps (QC): 6 12 Steps (QC): 6 Picking up an Object (QC): 6 Wheel 50 feet with 2 turns (QC: 9 Wheel 150 feet: 9 PT Plan Treatment/Plan Treatment Plan: Continue Plan of Care Treatment Plan: Education, Functional Activity Tiera, Functional Strength, Group Therapy, Gait, Safety, Therapeutic Exercise, Transfers Treatment Duration: Sep 01, 2022 Frequency: At least 5 of 7 days/Wk (IRF) Estimated Hrs Per Day: 1.5 hours per day Patient and/or Family Agrees t: Yes Safety Risks/Education Patient Education: Gait Training, Transfer Techniques, Correct Positioning, Disease Process, Safety Issues Teaching Recipient: Patient Teaching Methods: Demonstration, Discussion Response to Teaching: Verbalize Understanding, Return Demonstration Time Time In: 1255 Time Out: 1355 DATE: Aug 12, 2022 Total Billed Treatment Time: 60 Total Billed Treatment 1,GT12m,NM15m,EX33m GLORIA VIZCAINO [employer] WORKER Aug 12, 2022 14:02
[2022-08-12] MEDS ORDERED: inSUlin ASPART (NovoLOG) 1 UNIT/0.01 ML (CHARGE PER UNIT) SC SCH (16:00)
[2022-08-12] MEDS: DOCUSATE SODIUM 100 MG (COLACE) CAP PO SCH (19:48)
[2022-08-12 20:20] VITALS: BP 119/65
--- NOTE | 2022-08-13 06:03 | Individualized Plan of Care ---
Individualized Plan of Care Rehab Nursing IPOC Order Admission Date Aug 12, 2022 at 10:15 Current Orders Orders Admission Order(Inpt,Obs,Sdc) (08/12/22 06:53) Vital Signs: Per Unit Policy ( 08,16,00 (08/12/22 06:53) Noe Krause , (08/12/22 06:53) Sequential Compression Device (08/12/22 06:53) Billing Department Supervisor-Inpt Rehab Con (08/12/22 06:53) Rehab Nursing Orders-Ipoc (08/12/22 06:53) Physical Therapy Rehab Orders (08/12/22 06:53) Occupational Therapy Rehab Ord (08/12/22 06:53) Speech Therapy Rehab Orders (08/12/22 06:53) Cbc With Automated Diff (08/13/22 06:00) Comprehensive Metabolic Panel (08/13/22 06:00) Precautions (Aru) (08/12/22 06:53) Weekly Weight WEEK (08/12/22 06:53) Rehab-Intensity Of Therapy (08/12/22 06:53) Initiate Admission Nursing Pro .admission (08/12/22 06:53) Alprazolam Tablet (Xanax Tablet) (08/12/22 07:00) Calcium Carbonate Chew Tablet (Antacid C (08/12/22 07:00) Diphenhydramine Tablet (Benadryl Tablet) (08/12/22 07:00) Docusate Sodium Capsule (Colace Capsule) (08/12/22 09:00) Docusate Sodium Capsule (Colace Capsule) (08/12/22 07:00) Bisacodyl Suppository (Dulcolax Supposit (08/12/22 07:00) Lactulose Oral Solution (Enulose Oral So (08/12/22 07:00) Na Phos/Na Biphos Enema (Fleet Enema Zachary (08/12/22 07:00) Guaifenesin/Codeine Syrup (Robitussin Ac (08/12/22 07:00) Loperamide Tablet (Imodium Tablet) (08/12/22 07:00) Melatonin Tablet (Melatonin Tablet) (08/12/22 07:00) Polyethylene Glycol Powder Pkt (Miralax (08/12/22 09:00) Ondansetron Oral Dissolve Tab (Zofran (08/12/22 07:00) Senna S Tablet (Senokot S Tablet) (08/12/22 09:00) Acetaminophen Tablet/Caplet (Tylenol T (08/12/22 07:00) Therapeutic Activity Goals: .PRN (08/12/22 06:53) Nursing Communication (Order) (08/12/22 ) Naloxone Injection (Narcan Injection) (08/12/22 07:00) Initiate Admission Nursing Pro .admission (08/12/22 06:53) Admission Arrival Bed Request (08/12/22 10:36) Code/Resuscitation (08/12/22 11:43) Catheter(Urinary) Discontinue (08/12/22 11:43) Sequential Compression Device (08/12/22 11:43) Noe Krause (08/12/22 11:43) Cho 60g/M 3snack (16-2000 Samy) (08/12/22 Lunch) Diphenhydramine Injection (Benadryl Inje (08/12/22 11:45) Diphenhydramine Tablet (Benadryl Tablet) (08/12/22 11:45) Docusate Sodium Capsule (Colace Capsule) (08/12/22 21:00) Bisacodyl Suppository (Dulcolax Supposit (08/12/22 11:45) Hydrocodone/Apap 5/325 Tablet (Lortab 5 (08/12/22 11:45) Hydromorphone Injection (Dilaudid Inject (08/12/22 11:45) Lorazepam Injection (Ativan Injection) (08/12/22 11:45) Lorazepam Tablet (Ativan Tablet) (08/12/22 11:45) Melatonin Tablet (Melatonin Tablet) (08/12/22 11:45) Polyethylene Glycol Powder Pkt (Miralax (08/12/22 11:45) Antacid Suspension (Mylanta Suspension (08/12/22 11:45) Insulin Aspart (Novolog) (Novolog (Charg (08/12/22 16:00) Pantoprazole Tablet (Protonix Tablet) (08/13/22 09:00) Therapeutic Multivitamin Tab (Vitamins, (08/13/22 07:00) Acetaminophen Tablet/Caplet (Tylenol T (08/12/22 11:45) Ondansetron Injection (Zofran Injectio (08/12/22 11:45) Ondansetron Oral Dissolve Tab (Zofran (08/12/22 11:45) Insulin Determir (Per Unit) (Levemir (Pe (08/12/22 21:00) Enoxaparin Injection (Lovenox Injection) (08/13/22 11:00) Insulin Aspart (Novolog) (Novolog (Charg (08/12/22 12:30) Insulin Aspart (Novolog) (Novolog (Charg (08/12/22 17:00) Mat Initiate Protocol (08/12/22 13:26) Albuterol Pre-Mix Nebs (Rt) (Proventil (08/12/22 13:30) Svn Small Volume Nebulizer (08/12/22 13:26) Patient Visit (08/12/22 ) Pt Eval Low Complexity (08/12/22 ) Exercise Therap, Ea 15 Min (08/12/22 ) Patient Visit (08/12/22 ) Functional Activities, Ea 15 (08/12/22 ) Gait Training, Ea 15 Min (08/12/22 ) Exercise Therap, Ea 15 Min (08/12/22 ) Ex Neuromuscular, Ea 15 Min (08/12/22 ) Diabetes Education (08/13/22 05:06) Potassium Chloride (Tablet) (K Dur Table (08/13/22 08:00) Magnesium Oxide Tablet (Mag Ox Tablet) (08/13/22 08:00) Magnesium (08/13/22 06:41) Patient Visit (08/13/22 ) Speech Sound Lang Comp (08/13/22 ) Treat. Speech/Lang/Voice (08/13/22 ) Patient Visit (08/13/22 ) Functional Activities, Ea 15 (08/13/22 ) Exercise Therap, Ea 15 Min (08/13/22 ) Gait Training, Ea 15 Min (08/13/22 ) Rehab Nursing Orders: Ongoing Assess. of Cognitive Status, Ongoing Assess. of Function Status, Bladder Management, Bladder Scan, Bladder Training, Bowel Management, Bowel Training, Disease Management & Educaiton, DVT Prophylaxis, Fall Prevention, Fluid/Electrolyte/Nutrition Mgmt, Infection Prevention, Medication Management & Education, Management of Risks & Complications, Management of Skin Intergrity, Nutrition Management, Pain Management, Patient/Family Support, Safety Management Intensity of Therapy to be met Patient to be seen: Min.3h per day/5 of 7d PT IPOC Problem List: Activity Tolerance, Functional Strength, Safety, Balance, Gait, Transfer, Bed Mobility Treatment Plan: Continue Plan of Care Education, Functional Activity Tiera, Functional Strength, Group Therapy, Gait, Safety, Therapeutic Exercise, Transfers Treatment Duration: Sep 01, 2022 Frequency: At least 5 of 7 days/Wk (IRF) Estimated Hrs Per Day: 1.5 hours per day OT IPOC Problems: Decreased Activ Tolerance, Impaired Self-Care Skills OT Treatment, Training and Edu: Yes Plan of Care: ADL Retraining, Cognitive Retraining, Concurrent Therapy, Functional Mobility, Group Exercise/Act as Ind, UE Funct Exercise/Act Treatment Duration: Sep 12, 2022 Frequency: Modified Program (IRF) Estimated Hrs Per Day: 1.[address] IPOC Speech Therapy Treatment Plan: Continue Plan of Care Treatment Duration: Aug 13, 2022 Frequency: 1 time per week Estimated Hrs Per Day: Other Billing Department Supervisor/Case Mgmt Billing Department Supervisor/Case Managemen: Discharge Planning Dietitian/Tax Technician Dietitian/Tax Technician to monitor nutritional status and make changes and/or recommendations as needed and work with speech pathology on dietary upgrades as the occur. Physician IPOC Medical Issues being managed closely and that require the 24 hour availability of a physician: Recent critical illness with new onset DM presenting as DKA with COVID and causing severe encephalopathy will require close monitoring of sugars and monitoring of issues that could lead to recurrent DKA Medical Issues: Bowel/Bladder Function, DVT Prophylaxis, Falls Precautions, Fluid/Electrolyte/Nutrition Balance, Infection Protection, Pain Management Brief Synthesis of Preadmission Screen, Post-Admission Evaluation, and Therapy Evaluations: PT OT will focus on regaining function following new DM with DKA causing encephalopathy with use of AD and additional techniques to return patient to baseline. Medical Prognosis: Good Anticipated Length of Stay: 7 days BRAD DIAS DO Aug 13, 2022 06:03
--- NOTE | 2022-08-13 06:03 | PM&R Progress Note ---
Subjective HPI/CC On Admission Date Seen by Provider: Aug 13, 2022 Time Seen by Provider: 12:00 Subjective/Events-last exam 08/13/2022: Dramatically improved Sugars reviewed DM education will be provided today No pain Improved confusion Review of Systems General: Fatigue, Malaise Objective Exam Vital Signs Vital Signs Date Time Temp Pulse Resp B/P (MAP) Pulse Ox O2 Delivery O2 Flow Rate FiO2 08/13/22 21:45 96 Room Air 08/13/22 20:15 36.0 95 18 129/76 (93) 08/12/22 13:23 21 Capillary Refill : General Appearance: No Apparent Distress, WD/WN, Chronically ill HEENT: PERRL/EOMI, Normal ENT Inspection, Pharynx Normal Neck: Full Range of Motion, Normal Inspection, Non Tender, Supple, Carotid Bruit Respiratory: Chest Non Tender, Lungs Clear, Normal Breath Sounds, No Accessory Muscle Use, No Respiratory Distress Cardiovascular: Regular Rate, Rhythm, No Edema, No Gallop, No JVD, No Murmur, Normal Peripheral Pulses Gastrointestinal: Normal Bowel Sounds, No Organomegaly, No Pulsatile Mass, Non Tender, Soft Back: Normal Inspection, No CVA Tenderness, No Vertebral Tenderness Extremity: Normal Capillary Refill, Normal Inspection, Normal Range of Motion, Non Tender, No Calf Tenderness, No Pedal Edema Neurologic/Psychiatric: Alert, Oriented x3 (mild delay in processing), No Motor/Sensory Deficits, Normal 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 FIM Transfers Therapy Code Descriptions/Definitions Functional [place] Measure: 0=Not Assessed/NA 4=Minimal Assistance 1=Total Assistance 5=Supervision or Setup 2=Maximal Assistance 6=Modified [place] 3=Moderate Assistance 7=Complete IndependenceSCALE: Activities may be completed with or without assistive devices. 8-Zjuwonjgfe-alfuvit completes the activity by him/herself with no assistance from a helper. 5-Set-up or Clean-up Assistance-helper sets up or cleans up; patient completes activity. [place] assists only prior to or following the activity. 4-Supervision or Touching Assistance-helper provides verbal cues and/or touching/steadying and/or contact guard assistance as patient completes activity. Assistance may be provided throughout the activity or intermittently. 3-Partial/Moderate Assistance-helper does LESS THAN HALF the effort. [place] lifts, holds or supports trunk or limbs, but provides less than half the effort. 2-Substantial/Maximal Assistance-helper does MORE THAN HALF the effort. [place] lifts or holds trunk or limbs and provides more than half the effort. 2-Gjudefftq-yjvpbe does ALL the effort. Patient does none of the effort to complete the activity. Or, the assistance of 2 or more helpers is required for the patient to complete the activity. If activity was not attempted, code reason: 7-Patient Refused. 9-Not Applicable-not attempted and the patient did not perform the activity before the current illness, exacerbation or injury. 10-Not Attempted due to Environmental Limitations-(lack of equipment, weather restraints, etc.). 88-Not Attempted due to Medical Conditions or Safety Concerns. Roll Left to Right (QC): 6 Sit to Lying (QC): 6 Sit to Stand (QC): 6 Chair/Ojj-aq-Vcird Xfer(QC): 6 Car Transfer (QC): 5 Gait Training Does the Patient Walk?: Yes Walk 10 feet (QC): 6 Walk 50 ft with 2 Turns(QC): 6 Walk 150 ft (QC): 6 Walking 10ft/uneven surface-QC: 99 Gait Persons Needed: 0 Gait Assistive Device: None Wheelchair Training Does the Pt Use a Wheelchair?: No Wheel 50 ft with 2 turns (QC): 9 Wheel 150 ft (QC): 9 Stair Training #of Steps: 0 1 Step (curb) (QC): 88 4 Steps (QC): 88 12 Steps (QC): 88 Balance Picking up an Object (QC): 4 ADL-Treatment Eating (QC): 6 Oral Hygiene (QC): 6 (In sitting.) Shower/Bathe Self (QC): 5 Upper Body Dressing (QC): 4 Lower Body Dressing (QC): 4 On/Off Footwear (QC): 4 Toileting Hygiene (QC): 5 Assessment/Plan Assessment and Plan Assess & Plan/Chief Complaint Assessment: Brain dysfunction of encephalopathy from COVID and DKA with new onset DM Weakness Breast cancer HTN HLP OP Plan: Insulin PT OT DM education Monitor pain 08/13/2022: DM education Improved (1) Encephalopathy (2) DKA (diabetic ketoacidosis) Status: Acute (3) COVID Status: Acute BRAD DIAS DO Aug 13, 2022 06:02
[2022-08-13 06:16] LABS: BASOPHILS % (AUTO) 0 % (0-10); EOSINOPHILS # (AUTO) 0.1 10^3/uL (0.0-0.3); EOSINOPHILS % (AUTO) 1 % (0-10); HEMATOCRIT 34 % (35-52); HEMOGLOBIN 11.7 g/dL (11.5-16.0); LYMPHOCYTES # (AUTO) 2.2 10^3/uL (1.0-4.0); LYMPHOCYTES % (AUTO) 37 % (12-44); MEAN CORPUSCULAR HEMOGLOBIN 28 pg (25-34); MEAN CORPUSCULAR HGB CONC 34 g/dL (32-36); MEAN CORPUSCULAR VOLUME 81 fL (80-99); MONOCYTES # (AUTO) 0.7 10^3/uL (0.0-1.0); MONOCYTES % (AUTO) 11 % (0-12); NEUTROPHILS # (AUTO) 2.7 10^3/uL (1.8-7.8); NEUTROPHILS % (AUTO) 46 % (42-75); PLATELET COUNT 254 10^3/uL (130-400); WHITE BLOOD COUNT 5.8 10^3/uL (4.3-11.0)
[2022-08-13 06:22] LABS: ALBUMIN 2.8 GM/DL (3.2-4.5)
[2022-08-13 06:23] LABS: CALCIUM 9.1 MG/DL (8.5-10.1)
[2022-08-13 06:24] LABS: TOTAL PROTEIN 5.3 GM/DL (6.4-8.2)
[2022-08-13 06:26] LABS: BILIRUBIN,TOTAL 0.3 MG/DL (0.1-1.0)
[2022-08-13] MEDS: MULTIVIT W/MINERALS TAB (THERAGRAN M) PO SCH (06:27)
[2022-08-13 06:28] LABS: CREATININE SERUM 0.53 MG/DL (0.60-1.30)
[2022-08-13] MEDS: inSUlin ASPART (NovoLOG) 1 UNIT/0.01 ML (CHARGE PER UNIT) SC SCH ×7 (06:28→21:09)
[2022-08-13 06:33] LABS: POTASSIUM 2.5 MMOL/L (3.6-5.0)
[2022-08-13 07:03] VITALS: BP 133/77
--- NOTE | 2022-08-13 07:43 | Occupational Ther Daily Note ---
OT Current Status-Daily Note Subjective Pt alert, sitting up in bed. Pt agrees to therapy. No c/o pain. Mental Status/Objective Patient Orientation: Person, Place, Time, Situation ADL-Treatment No AD/AE used for ambulation. Pt agrees to shower. Independent with eating. Independent with toileting. Pt gathered clothing independently. Pt independent for showering using shower bench, grabbar and hand held shower. Pt fatigues and requires shower bench to sit for recovery break. Pt picked up BS and placed in front Therapy Code Descriptions/Definitions Functional [place] Measure: 0=Not Assessed/NA 4=Minimal Assistance 1=Total Assistance 5=Supervision or Setup 2=Maximal Assistance 6=Modified [place] 3=Moderate Assistance 7=Complete IndependenceSCALE: Activities may be completed with or without assistive devices. 9-Hrjwkwzaya-atzfvhq completes the activity by him/herself with no assistance from a helper. 5-Set-up or Clean-up Assistance-helper sets up or cleans up; patient completes activity. [place] assists only prior to or following the activity. 4-Supervision or Touching Assistance-helper provides verbal cues and/or touching/steadying and/or contact guard assistance as patient completes activity. Assistance may be provided throughout the activity or intermittently. 3-Partial/Moderate Assistance-helper does LESS THAN HALF the effort. [place] lifts, holds or supports trunk or limbs, but provides less than half the effort. 2-Substantial/Maximal Assistance-helper does MORE THAN HALF the effort. [place] lifts or holds trunk or limbs and provides more than half the effort. 7-Zvcscstin-ujjenu does ALL the effort. Patient does none of the effort to complete the activity. Or, the assistance of 2 or more helpers is required for the patient to complete the activity. If activity was not attempted, code reason: 7-Patient Refused. 9-Not Applicable-not attempted and the patient did not perform the activity before the current illness, exacerbation or injury. 10-Not Attempted due to Environmental Limitations-(lack of equipment, weather restraints, etc.). 88-Not Attempted due to Medical Conditions or Safety Concerns. Eating (QC): 6 Shower/Bathe Self (QC): 6 Upper Body Dressing (QC): 6 Lower Body Dressing (QC): 6 On/Off Footwear: 6 Toileting Hygiene (QC): 6 Toilet Transfer (QC): 6 Other Treatment Pt completed B UE exercises against gravity to increase strength and activity tolerance for daily functional tasks. 3 exercises 2 sets 15 reps then 2 sets 10 reps with 2 in sitting and 1 in standing. Pt took increased recovery breaks between sets. After session, pt sitting on EOB with call light/phone in reach. All needs met in room. OT Short Term Goals Short Term Goals Time Frame: Aug 22, 2022 Eatin Oral hygiene: 6 Toileting hygiene: 6 Shower/bathe self: 5 Upper body dressin Lower body dressin Putting on/taking off footwear: 6 OT [facility] Goals [facility] Goals Eating (QC): 6 Oral Hygiene (QC): 6 Toileting Hygiene (QC): 6 Shower/Bathe Self (QC): 6 Upper Body Dressing (QC): 6 Lower Body Dressing (QC): 6 On/Off Footwear (QC): 6 Additional Goals: 3-ImproveStrength/Tiera 1=Demonstrate adherence to instructed precautions during ADL tasks. 2=Patient will verbalize/demonstrate understanding of assistive devices/modifications for ADL. 3=Patient will improve strength/tolerance for activity to enable patient to perform ADL's. OT Education/Plan Problem List/Assessment Assessment: Decreased Activ Tolerance, Decreased UE Strength Discharge Recommendations Plan/Recommendations: Continue POC Treatment Plan/Plan of Care Patient would benefit from OT for education, treatment and training to promote independence in ADL's, mobility, safety and/or upper extremity function for ADL's. Plan of Care: ADL Retraining, Cognitive Retraining, Concurrent Therapy, Functional Mobility, Group Exercise/Act as Ind, UE Funct Exercise/Act Treatment Duration: Sep 12, 2022 Frequency: Modified Program (IRF) Estimated Hrs Per Day: 1.5 hours per day Rehab Potential: Good Time Start Time: 07:15 Stop Time: 08:45 DATE: Aug 13, 2022 Total Time Billed (hr/min): 90 Billed Treatment Time 1 visit-ADL 4 (60 min) EX 2 (30 min) TRACY LI Aug 13, 2022 07:43
[2022-08-13] MEDS: MAGNESIUM OXIDE (MAG-OX)400 MG TAB PO SCH ×2 (08:23→17:01)
[2022-08-13] MEDS: KCL 20 MEQ TAB (K-DUR) PO SCH ×3 (08:23→17:01)
[2022-08-13] MEDS: PANTOPRAZOLE 40 MG (PROTONIX) TAB PO SCH (08:23)
[2022-08-13] MEDS: SENNA W/DOCUSATE (SENOKOT S) TABLET PO SCH ×2 (08:24→20:40)
[2022-08-13] MEDS: polyethylene glycoL POWDER 17 GM (MIRALAX) PACK PO SCH ×2 (08:24→20:40)
[2022-08-13] MEDS: DOCUSATE SODIUM 100 MG (COLACE) CAP PO SCH ×2 (08:24→21:09)
--- NOTE | 2022-08-13 09:59 | ST Cognitive Linguistic Eval ---
Speech Evaluation-General Medical Diagnosis DKA, AMS, COVID (+) Onset Date: Aug 08, 2022 Therapy Diagnosis Therapy Diagnosis: Intact (Baseline) Cognition Precautions Precautions/Isolations: Airborne Isolation Referral Referring Physician: Dr. Vasquez Reason for Referral: Evaluation/Treatment Medical History Pertinent Medical History: DM Reviewed History: Yes Social History Current Living Status: Significant Other Speech PLF-Current Status Prior Level of Function The patient denied prior or current challenges with her speech, language, cognition, or swallowing. The patient reports each function previously listed in performing at baseline level. Subjective The patient was lying in bed, awake and alert, upon entrance to her room by the clinician. The patient greeted the clinician appropriately and was agreeable to participation in the cognitive linguistic assessment. Language Eval: Auditory Comprehends Simple Yes/No Ques: Functional Indent/Objects Multiple [place]: Functional Follows 1-Step Commands: Functional Follows Complex Directions: Functional Follows General Conversations: Functional Language Eval: Verbal Language Completes Spontaneous Greeting: Functional Produces Auto, Serial Info: Functional Word Finding: Functional Requests Basic Needs: Functional States Basic Personal Info: Functional Expresses Complex Ideas: Functional Language Evaluation: Reading Follows Simple Written Direct: Functional Language Evaluation: Writing Writes to Simple Dictation: Functional Cognitive Patient Orientation The patient is independently oriented to self, location, month, day of the week, date and year. Objective Cognitive Domain Attention: WNL Memory: WNL Problem Solving: Functional Executive Functions: WNL Visuospatial Skills: WNL Composite Severity Rating: WNL Clock Drawing Severity Rating: WNL Objective Formal/Standardized Tests [facility] Mental Status Exam (UMS) Results The patient demonstrated a result of +27/30 on the SLUMS correlating to a result within normal cognitive limits. Oral Motor/Speech Production The patient does not display dysarthria or apraxia of speech. The patient is 100% intelligible in known and unknown contexts. Impression The patient demonstrated intact (self-reported baseline) cognitive linguistic skills. Skilled speech pathology services are not warranted at this time. Speech-Plan Treatment Plan Speech Therapy Treatment Plan: Discontinue ST Treatment Duration: Aug 13, 2022 Frequency: 1 time per week Estimated Hrs Per Day: .25 hour per day Rehab Potential: Good Safety Risks/Education Teaching Recipient: Patient Teaching Methods: Discussion Response to Teaching: Verbalize Understanding Education Topics Provided: Results, Plan of Care, Recommendations Time Speech Therapy Time In: 09:30 Speech Therapy Time Out: 09:50 DATE: Aug 13, 2022 Total Billed Time: 20 Billed Treatment Time 1, AZUL RILEY [facility] Aug 13, 2022 09:59
[2022-08-13] MEDS: ENOXAPARIN 40 MG/0.4 ML (LOVENOX) SYR SC SCH (10:57)
--- NOTE | 2022-08-13 11:15 | Physical Therapy Daily Note ---
PT Daily Note-Current Subjective Pt. agrees to Rx but states she is tired today. Pain Section J - Health Conditions 1. Rarely or not at all 2. Occasionally 3. Frequently 4. Almost constantly 8. Unable to answer Pain Effect on Sleep: 1 Pain Interference with Therapy: 1 Pain Interference w/Day-to-Day: 1 Mental Status Patient Orientation: Normal For Age Transfers SCALE: Activities may be completed with or without assistive devices. 7-Yrwxxoyxys-edyfmey completes the activity by him/herself with no assistance from a helper. 5-Set-up or Clean-up Assistance-helper sets up or cleans up; patient completes activity. [place] assists only prior to or following the activity. 4-Supervision or Touching Assistance-helper provides verbal cues and/or touching/steadying and/or contact guard assistance as patient completes activity. Assistance may be provided throughout the activity or intermittently. 3-Partial/Moderate Assistance-helper does LESS THAN HALF the effort. [place] lifts, holds or supports trunk or limbs, but provides less than half the effort. 2-Substantial/Maximal Assistance-helper does MORE THAN HALF the effort. [place] lifts or holds trunk or limbs and provides more than half the effort. 5-Xlrfhnkbi-vgkmmo does ALL the effort. Patient does none of the effort to complete the activity. Or, the assistance of 2 or more helpers is required for the patient to complete the activity. If activity was not attempted, code reason: 7-Patient Refused. 9-Not Applicable-not attempted and the patient did not perform the activity before the current illness, exacerbation or injury. 10-Not Attempted due to Environmental Limitations-(lack of equipment, weather restraints, etc.). 88-Not Attempted due to Medical Conditions or Safety Concerns. all TRFs MOD I Weight Bearing Right Lower Extremity: Right Full Weight Bearing Left Lower Extremity: Left Full Weight Bearing Exercises Supine Ex: Bridging, Ankle pumps, Quad Set, Rolling, Glut sets, Lower trunk rotation, Heel Slides, Short Arc Quads, Scooting, Straight leg raise, Hip abd/add Supine Reps: 15 Seated Therapy Exercises: Ankle pumps, Sit to stand, Long arc quads, Hip flexion, Hip abd/add Seated Reps: 12 Treatments sup and sit LE ex Assessment Current Status: Good Progress PT Restaurant Server Goals Usp Goals PT Restaurant Server Goals Time Frame: Aug 22, 2022 Roll Left & Right (QC): 6 Sit to Lying (QC): 6 Lying-Sitting on Side/Bed(QC): 6 Sit to Stand (QC): 6 Chair/Now-pe-Iopni Xfer(QC): 6 Toilet Transfer (QC): 6 Car Transfer (QC): 6 Does the Patient Walk: Yes Walk 10 feet (QC): 6 Walk 50ft with 2 Turns (QC): 6 Walk 150 ft (QC): 6 Walking 10ft on Uneven Surface: 6 1 Step (curb) (QC): 6 4 Steps (QC): 6 12 Steps (QC): 6 Picking up an Object (QC): 6 Wheel 50 feet with 2 turns (QC: 9 Wheel 150 feet: 9 PT Plan Treatment/Plan Treatment Plan: Continue Plan of Care Treatment Plan: Education, Functional Activity Tiera, Functional Strength, Group Therapy, Gait, Safety, Therapeutic Exercise, Transfers Treatment Duration: Sep 01, 2022 Frequency: At least 5 of 7 days/Wk (IRF) Estimated Hrs Per Day: 1.5 hours per day Patient and/or Family Agrees t: Yes Safety Risks/Education Patient Education: Correct Positioning Time Time In: 1445 Time Out: 1500 DATE: Aug 12, 2022 Total Billed Treatment Time: 15 Total Billed Treatment 1,EX15m, for Rx rendered 08.12.22 SHAHID Zelaya LEE A PTA Aug 13, 2022 11:15
--- NOTE | 2022-08-13 11:21 | Physical Therapy Daily Note ---
PT Daily Note-Current Subjective Pt. agrees to Rx, SO enters during Rx. pt. inquires about many things : is she eligible for Ver[facility] dumont? would Dr Vasquez be interested in being her PCP?, is she eligible for the new reduced maki or no charge pharmacueticals that [employer] is advertising on TV and will she be home in time to watch the Thing[employer]? Pt. denies any pain or discomfort, no diarrhea but still not having formed stools . Pt. states she just began solid food yesterday. Pain Location: No Pain Reported Section J - Health Conditions 1. Rarely or not at all 2. Occasionally 3. Frequently 4. Almost constantly 8. Unable to answer Pain Effect on Sleep: 1 Pain Interference with Therapy: 1 Pain Interference w/Day-to-Day: 1 Mental Status Patient Orientation: Normal For Age Transfers SCALE: Activities may be completed with or without assistive devices. 6-Dltmndjfic-oboyict completes the activity by him/herself with no assistance from a helper. 5-Set-up or Clean-up Assistance-helper sets up or cleans up; patient completes activity. [place] assists only prior to or following the activity. 4-Supervision or Touching Assistance-helper provides verbal cues and/or touching/steadying and/or contact guard assistance as patient completes activity. Assistance may be provided throughout the activity or intermittently. 3-Partial/Moderate Assistance-helper does LESS THAN HALF the effort. [place] lifts, holds or supports trunk or limbs, but provides less than half the effort. 2-Substantial/Maximal Assistance-helper does MORE THAN HALF the effort. [place] lifts or holds trunk or limbs and provides more than half the effort. 3-Izdotbhpz-dtdzhw does ALL the effort. Patient does none of the effort to complete the activity. Or, the assistance of 2 or more helpers is required for the patient to complete the activity. If activity was not attempted, code reason: 7-Patient Refused. 9-Not Applicable-not attempted and the patient did not perform the activity before the current illness, exacerbation or injury. 10-Not Attempted due to Environmental Limitations-(lack of equipment, weather restraints, etc.). 88-Not Attempted due to Medical Conditions or Safety Concerns. Roll Left & Right (QC): 6 Sit to Lying (QC): 6 Lying to Sitting/Side of Bed(Q: 6 Sit to Stand (QC): 6 Chair/Jxi-az-Avewt Xfer(QC): 6 Toilet Transfer (QC): 6 Car Transfer (QC): 6 Weight Bearing Right Lower Extremity: Right Full Weight Bearing Left Lower Extremity: Left Full Weight Bearing Gait Training Does the Patient Walk?: Yes Walk 10 feet (QC): 6 Walk 50 ft with 2 Turns(QC): 6 Walk 150 ft (QC): 6 Walking 10ft/uneven surface-QC: 6 Gait Persons Needed: 0 Gait Assistive Device: None no LOB, no incident Wheelchair Training Does the Pt Use a Wheelchair?: No Stair Training Stair Training: Handrails/: 1 handrail #of Steps: 12 1 Step (curb) (QC): 6 4 Steps (QC): 6 12 Steps (QC): 6 Stairs: Pattern: Reciprocal Balance Picking up an Object (QC): 6 Exercises Supine Ex: Bridging, Ankle pumps, Quad Set, Rolling, Glut sets, Lower trunk rotation, Heel Slides, Short Arc Quads, Scooting, Straight leg raise, Hip abd/add Supine Reps: 15 Seated Therapy Exercises: Ankle pumps, Sit to stand, Long arc quads, Hip flexion, Hip abd/add Seated Reps: 10 Standing: Hip Abduction, Hamstring curls, Heel/toe raises, Marching, Mini squats Standing Reps: 12 Treatments completed QCs, gait, supine in sup, sit and stand all with good tolerance, SO present and collectively they speak about pts future health challenges and options for monitoring her diabetes Assessment Current Status: Excellent Progress meets goals for PT PT Biology Tutor Goals Nursing Home Goals PT Biology Tutor Goals Time Frame: Aug 22, 2022 Roll Left & Right (QC): 6 Sit to Lying (QC): 6 Lying-Sitting on Side/Bed(QC): 6 Sit to Stand (QC): 6 Chair/Gmk-ux-Xwdlx Xfer(QC): 6 Toilet Transfer (QC): 6 Car Transfer (QC): 6 Does the Patient Walk: Yes Walk 10 feet (QC): 6 Walk 50ft with 2 Turns (QC): 6 Walk 150 ft (QC): 6 Walking 10ft on Uneven Surface: 6 1 Step (curb) (QC): 6 4 Steps (QC): 6 12 Steps (QC): 6 Picking up an Object (QC): 6 Wheel 50 feet with 2 turns (QC: 9 Wheel 150 feet: 9 PT Plan Treatment/Plan Treatment Plan: Continue Plan of Care Treatment Plan: Education, Functional Activity Tiera, Functional Strength, Group Therapy, Gait, Safety, Therapeutic Exercise, Transfers Treatment Duration: Sep 01, 2022 Frequency: At least 5 of 7 days/Wk (IRF) Estimated Hrs Per Day: 1.5 hours per day Patient and/or Family Agrees t: Yes Safety Risks/Education Patient Education: Gait Training, Transfer Techniques, Steps, Disease Process Teaching Recipient: Patient Teaching Methods: Demonstration, Discussion Response to Teaching: Verbalize Understanding, Return Demonstration, Reinforcement Needed Time Time In: 1000 Time Out: 1130 DATE: Aug 13, 2022 Total Billed Treatment Time: 90 Total Billed Treatment 1,FA50m,EX28m,GT12m GLORIA VIZCAINO INTERIOR DECORATOR PAPERHANGING Aug 13, 2022 11:21
[2022-08-13 20:15] VITALS: BP 129/76
[2022-08-14] MEDS: inSUlin ASPART (NovoLOG) 1 UNIT/0.01 ML (CHARGE PER UNIT) SC SCH ×7 (06:18→22:10)
--- NOTE | 2022-08-14 06:28 | PM&R Progress Note ---
Subjective HPI/CC On Admission Date Seen by Provider: Aug 14, 2022 Time Seen by Provider: 11:00 Subjective/Events-last exam 08/14/2022: Insulin working well Decreased insulin today Updated patient and partner regarding COVID and DKA 08/13/2022: Dramatically improved Sugars reviewed DM education will be provided today No pain Improved confusion Review of Systems General: Fatigue, Malaise Objective Exam Vital Signs Vital Signs Date Time Temp Pulse Resp B/P (MAP) Pulse Ox O2 Delivery O2 Flow Rate FiO2 08/15/22 00:03 36.5 99 96 21 08/14/22 21:10 Room Air 08/14/22 20:15 18 137/71 (93) Capillary Refill : General Appearance: No Apparent Distress, WD/WN, Chronically ill HEENT: PERRL/EOMI, Normal ENT Inspection, Pharynx Normal Neck: Full Range of Motion, Normal Inspection, Non Tender, Supple, Carotid Bruit Respiratory: Chest Non Tender, Lungs Clear, Normal Breath Sounds, No Accessory Muscle Use, No Respiratory Distress Cardiovascular: Regular Rate, Rhythm, No Edema, No Gallop, No JVD, No Murmur, Normal Peripheral Pulses Gastrointestinal: Normal Bowel Sounds, No Organomegaly, No Pulsatile Mass, Non Tender, Soft Back: Normal Inspection, No CVA Tenderness, No Vertebral Tenderness Extremity: Normal Capillary Refill, Normal Inspection, Normal Range of Motion, Non Tender, No Calf Tenderness, No Pedal Edema Neurologic/Psychiatric: Alert, Oriented x3 (mild delay in processing), No Motor/Sensory Deficits, Normal Mood/Affect, pizza cook II-XII Norm as Tested, Motor Weakness (generalized) Skin: Normal Color, Warm/Dry Lymphatic: No Adenopathy Results/Procedures Lab Laboratory Tests 08/14/22 06:48 Patient resulted labs reviewed. FIM Transfers Therapy Code Descriptions/Definitions Functional [place] Measure: 0=Not Assessed/NA 4=Minimal Assistance 1=Total Assistance 5=Supervision or Setup 2=Maximal Assistance 6=Modified [place] 3=Moderate Assistance 7=Complete IndependenceSCALE: Activities may be completed with or without assistive devices. 3-Zguqfstmoh-vxvmapj completes the activity by him/herself with no assistance from a helper. 5-Set-up or Clean-up Assistance-helper sets up or cleans up; patient completes activity. [place] assists only prior to or following the activity. 4-Supervision or Touching Assistance-helper provides verbal cues and/or touching/steadying and/or contact guard assistance as patient completes activity. Assistance may be provided throughout the activity or intermittently. 3-Partial/Moderate Assistance-helper does LESS THAN HALF the effort. [place] lifts, holds or supports trunk or limbs, but provides less than half the effort. 2-Substantial/Maximal Assistance-helper does MORE THAN HALF the effort. [place] lifts or holds trunk or limbs and provides more than half the effort. 7-Fzyssqrwd-gnystc does ALL the effort. Patient does none of the effort to complete the activity. Or, the assistance of 2 or more helpers is required for the patient to complete the activity. If activity was not attempted, code reason: 7-Patient Refused. 9-Not Applicable-not attempted and the patient did not perform the activity before the current illness, exacerbation or injury. 10-Not Attempted due to Environmental Limitations-(lack of equipment, weather restraints, etc.). 88-Not Attempted due to Medical Conditions or Safety Concerns. Roll Left to Right (QC): 6 Sit to Lying (QC): 6 Sit to Stand (QC): 6 Chair/Qya-cy-Hunuz Xfer(QC): 6 Car Transfer (QC): 6 Gait Training Does the Patient Walk?: Yes Walk 10 feet (QC): 6 Walk 50 ft with 2 Turns(QC): 6 Walk 150 ft (QC): 6 Walking 10ft/uneven surface-QC: 6 Gait Persons Needed: 0 Gait Assistive Device: None Wheelchair Training Does the Pt Use a Wheelchair?: No Wheel 50 ft with 2 turns (QC): 9 Wheel 150 ft (QC): 9 Stair Training Stair Training: Handrails/: 1 handrail #of Steps: 12 1 Step (curb) (QC): 6 4 Steps (QC): 6 12 Steps (QC): 6 Stairs: Pattern: Reciprocal Balance Picking up an Object (QC): 6 ADL-Treatment Eating (QC): 6 Oral Hygiene (QC): 6 (In sitting.) Shower/Bathe Self (QC): 6 Upper Body Dressing (QC): 6 Lower Body Dressing (QC): 6 On/Off Footwear (QC): 6 Toileting Hygiene (QC): 6 Toilet Transfer (QC): 6 Assessment/Plan Assessment and Plan Assess & Plan/Chief Complaint Assessment: 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
[2022-08-14] MEDS: MULTIVIT W/MINERALS TAB (THERAGRAN M) PO SCH (06:52)
[2022-08-14 07:19] VITALS: BP 138/68
[2022-08-14 07:26] LABS: CALCIUM 9.2 MG/DL (8.5-10.1); CREATININE SERUM 0.52 MG/DL (0.60-1.30); POTASSIUM 2.8 MMOL/L (3.6-5.0)
--- NOTE | 2022-08-14 07:33 | Occupational Ther Daily Note ---
OT Current Status-Daily Note Subjective Pt alert, sitting up in bed. Pt agrees to therapy. No c/o pain at this time. Mental Status/Objective Patient Orientation: Person, Place, Time, Situation ADL-Treatment Pt independent with eating. Pt independent with oral care, sitting at sink due to fatigue. Pt independent with shower using grabbars, hand held shower and shower bench. Independent with toileting. Independent gathering clothing and dressing without AE/AD. Therapy Code Descriptions/Definitions Functional [place] Measure: 0=Not Assessed/NA 4=Minimal Assistance 1=Total Assistance 5=Supervision or Setup 2=Maximal Assistance 6=Modified [place] 3=Moderate Assistance 7=Complete IndependenceSCALE: Activities may be completed with or without assistive devices. 1-Hkuxidsuvk-znaqjuj completes the activity by him/herself with no assistance from a helper. 5-Set-up or Clean-up Assistance-helper sets up or cleans up; patient completes activity. [place] assists only prior to or following the activity. 4-Supervision or Touching Assistance-helper provides verbal cues and/or touching/steadying and/or contact guard assistance as patient completes activity. Assistance may be provided throughout the activity or intermittently. 3-Partial/Moderate Assistance-helper does LESS THAN HALF the effort. [place] lifts, holds or supports trunk or limbs, but provides less than half the effort. 2-Substantial/Maximal Assistance-helper does MORE THAN HALF the effort. [place] lifts or holds trunk or limbs and provides more than half the effort. 3-Hyzygwcuc-reiiuy does ALL the effort. Patient does none of the effort to complete the activity. Or, the assistance of 2 or more helpers is required for the patient to complete the activity. If activity was not attempted, code reason: 7-Patient Refused. 9-Not Applicable-not attempted and the patient did not perform the activity before the current illness, exacerbation or injury. 10-Not Attempted due to Environmental Limitations-(lack of equipment, weather restraints, etc.). 88-Not Attempted due to Medical Conditions or Safety Concerns. Eating (QC): 6 Oral Hygiene (QC): 6 Shower/Bathe Self (QC): 6 Upper Body Dressing (QC): 6 Lower Body Dressing (QC): 6 On/Off Footwear: 6 Toileting Hygiene (QC): 6 Toilet Transfer (QC): 6 Other Treatment Educated pt on energy conservation techniques. Pt verbalized own strategies and acknowledged understanding of technique. After session, pt sitting in recliner with call light/phone in reach. All needs met in room. BIMS CAM BIMS Expression of Ideas and Wants: Without Difficulty Understanding Verbal Content: Understands Brief Interview/Mental Status: Yes IRF JOHN BIMS: IRF JOHN BIMS Response (Comments) Value Repitition of Three Words Three 3 Recalls Socks Yes, No Cue Required 2 Recalls Blue Yes, No Cue Required 2 Recalls Bed Yes, No Cue Required 2 Year Correct 3 Month Accurate Within 5 Days 2 Day Correct 1 Total 15 Patient Normally Able to Recal: Current Session, Location of own room, Staff Names and faces, That he/she in a hsp Should Staff Asses. Mental St.: No CAM Mental Status Change/Baseline: 0 Inattention: 0 Disorganized thinkin Altered level of consciousness: 0 OT Short Term Goals Short Term Goals Time Frame: Aug 22, 2022 Eatin Oral hygiene: 6 Toileting hygiene: 6 Shower/bathe self: 5 Upper body dressin Lower body dressin Putting on/taking off footwear: 6 OT Hazardous Waste Material Technician Goals Hazardous Waste Material Technician Goals Eating (QC): 6 (met) Oral Hygiene (QC): 6 (met) Toileting Hygiene (QC): 6 (met) Shower/Bathe Self (QC): 6 (met) Upper Body Dressing (QC): 6 (me) Lower Body Dressing (QC): 6 (met) On/Off Footwear (QC): 6 (met) Additional Goals: 3-ImproveStrength/Tiera 1=Demonstrate adherence to instructed precautions during ADL tasks. 2=Patient will verbalize/demonstrate understanding of assistive devices/modifications for ADL. 3=Patient will improve strength/tolerance for activity to enable patient to perform ADL's. OT Education/Plan Problem List/Assessment Assessment: Decreased Activ Tolerance Discharge Recommendations Plan/Recommendations: Continue POC Therapy Discharge Recommendati: Home & Family Treatment Plan/Plan of Care Patient would benefit from OT for education, treatment and training to promote independence in ADL's, mobility, safety and/or upper extremity function for ADL's. Plan of Care: ADL Retraining, Cognitive Retraining, Concurrent Therapy, Fu nctional Mobility, Group Exercise/Act as Ind, UE Funct Exercise/Act Treatment Duration: Sep 12, 2022 Frequency: Modified Program (IRF) Estimated Hrs Per Day: 1.5 hours per day Rehab Potential: Good Time Start Time: 07:15 Stop Time: 08:45 DATE: Aug 14, 2022 Total Time Billed (hr/min): 90 Billed Treatment Time 1 visit-ADL 5 (75 min) FA 1 (15 min) TRACY LI Aug 14, 2022 07:33
[2022-08-14] MEDS: KCL 20 MEQ TAB (K-DUR) PO SCH ×3 (08:25→17:08)
[2022-08-14] MEDS: MAGNESIUM OXIDE (MAG-OX)400 MG TAB PO SCH ×2 (08:25→17:08)
[2022-08-14] MEDS: PANTOPRAZOLE 40 MG (PROTONIX) TAB PO SCH (08:25)
[2022-08-14] MEDS: DOCUSATE SODIUM 100 MG (COLACE) CAP PO SCH ×2 (08:25→22:09)
[2022-08-14] MEDS: SENNA W/DOCUSATE (SENOKOT S) TABLET PO SCH ×2 (09:03→21:00)
[2022-08-14] MEDS: polyethylene glycoL POWDER 17 GM (MIRALAX) PACK PO SCH ×2 (09:03→21:00)
--- NOTE | 2022-08-14 10:17 | Physical Therapy Daily Note ---
PT Daily Note-Current Subjective Pt. feels well, no issues, received diabetic education yesterday. No pain or nausea or vomiting etc. "Taste is coming back too" Pain Location: No Pain Reported Section J - Health Conditions 1. Rarely or not at all 2. Occasionally 3. Frequently 4. Almost constantly 8. Unable to answer Pain Effect on Sleep: 1 Pain Interference with Therapy: 1 Pain Interference w/Day-to-Day: 1 Mental Status Patient Orientation: Normal For Age Transfers SCALE: Activities may be completed with or without assistive devices. 2-Rpaatodfhr-wtpckuo completes the activity by him/herself with no assistance from a helper. 5-Set-up or Clean-up Assistance-helper sets up or cleans up; patient completes activity. [place] assists only prior to or following the activity. 4-Supervision or Touching Assistance-helper provides verbal cues and/or touching/steadying and/or contact guard assistance as patient completes activity. Assistance may be provided throughout the activity or intermittently. 3-Partial/Moderate Assistance-helper does LESS THAN HALF the effort. [place] lifts, holds or supports trunk or limbs, but provides less than half the effort. 2-Substantial/Maximal Assistance-helper does MORE THAN HALF the effort. [place] lifts or holds trunk or limbs and provides more than half the effort. 7-Wkysxjpwo-oshryo does ALL the effort. Patient does none of the effort to complete the activity. Or, the assistance of 2 or more helpers is required for the patient to complete the activity. If activity was not attempted, code reason: 7-Patient Refused. 9-Not Applicable-not attempted and the patient did not perform the activity before the current illness, exacerbation or injury. 10-Not Attempted due to Environmental Limitations-(lack of equipment, weather restraints, etc.). 88-Not Attempted due to Medical Conditions or Safety Concerns. Roll Left & Right (QC): 6 Sit to Lying (QC): 6 Lying to Sitting/Side of Bed(Q: 6 Sit to Stand (QC): 6 Chair/Jys-di-Accxz Xfer(QC): 6 Toilet Transfer (QC): 6 Car Transfer (QC): 6 Weight Bearing Right Lower Extremity: Right Full Weight Bearing Left Lower Extremity: Left Full Weight Bearing Gait Training Does the Patient Walk?: Yes Walk 10 feet (QC): 6 Walk 50 ft with 2 Turns(QC): 6 Walk 150 ft (QC): 6 Walking 10ft/uneven surface-QC: 6 Gait Persons Needed: 0 Gait Assistive Device: None indep for all Wheelchair Training Does the Pt Use a Wheelchair?: No Stair Training Stair Training: Handrails/: 1 handrail #of Steps: 12 1 Step (curb) (QC): 6 4 Steps (QC): 6 12 Steps (QC): 6 Stairs: Pattern: Reciprocal Balance Picking up an Object (QC): 6 Exercises Supine Ex: Bridging, Ankle pumps, Quad Set, Rolling, Glut sets, Lower trunk rotation, Heel Slides, Knee to chest, Short Arc Quads, Scooting, Straight leg raise, Hip abd/add Supine Reps: 15 Seated Therapy Exercises: Ankle pumps, Sit to stand, Long arc quads, Hip flexion, Hip abd/add Seated Reps: 15 Standing: Hip Abduction, Hamstring curls, Heel/toe raises, Marching, Mini squats Standing Reps: 10 Pt. demonstrates good understanding of exercises and shows this therapist what she remembers from previous Rxs and demonstrates them to this NOC TECHNICIAN Treatments TRFs, gait, QCs Assessment Current Status: Excellent Progress meets PT goals PT Customer Energy Specialist Goals Customer Energy Specialist Goals PT Customer Energy Specialist Goals Time Frame: Aug 22, 2022 Roll Left & Right (QC): 6 Sit to Lying (QC): 6 Lying-Sitting on Side/Bed(QC): 6 Sit to Stand (QC): 6 Chair/Kam-wi-Lwnsl Xfer(QC): 6 Toilet Transfer (QC): 6 Car Transfer (QC): 6 Does the Patient Walk: Yes Walk 10 feet (QC): 6 Walk 50ft with 2 Turns (QC): 6 Walk 150 ft (QC): 6 Walking 10ft on Uneven Surface: 6 1 Step (curb) (QC): 6 4 Steps (QC): 6 12 Steps (QC): 6 Picking up an Object (QC): 6 Wheel 50 feet with 2 turns (QC: 9 Wheel 150 feet: 9 PT Plan Treatment/Plan Treatment Plan: Continue Plan of Care Treatment Plan: Education, Functional Activity Tiera, Functional Strength, Group Therapy, Gait, Safety, Therapeutic Exercise, Transfers Treatment Duration: Sep 01, 2022 Frequency: At least 5 of 7 days/Wk (IRF) Estimated Hrs Per Day: 1.5 hours per day Patient and/or Family Agrees t: Yes Safety Risks/Education Patient Education: Gait Training, Transfer Techniques, Steps, Correct Positioning Time Time In: 900 Time Out: 1030 DATE: Aug 14, 2022 Total Billed Treatment Time: 90 Total Billed Treatment 1,GT35m,EX30m,FA25m GLORIA VIZCAINO PTA Aug 14, 2022 10:17
[2022-08-14] MEDS: ENOXAPARIN 40 MG/0.4 ML (LOVENOX) SYR SC SCH (12:08)
[2022-08-14 20:15] VITALS: BP 137/71
[2022-08-15 00:03] VITALS: BP 137/71
[2022-08-15] MEDS: inSUlin ASPART (NovoLOG) 1 UNIT/0.01 ML (CHARGE PER UNIT) SC SCH ×6 (07:36→21:28)
[2022-08-15] MEDS: MULTIVIT W/MINERALS TAB (THERAGRAN M) PO SCH (07:37)
[2022-08-15 08:16] LABS: POTASSIUM 3.8 MMOL/L (3.6-5.0)
[2022-08-15 08:17] LABS: CALCIUM 9.8 MG/DL (8.5-10.1)
[2022-08-15 08:22] LABS: CREATININE SERUM 0.62 MG/DL (0.60-1.30)
[2022-08-15 08:27] VITALS: BP 131/73
[2022-08-15] MEDS: KCL 20 MEQ TAB (K-DUR) PO SCH ×3 (08:31→16:46)
[2022-08-15] MEDS: DOCUSATE SODIUM 100 MG (COLACE) CAP PO SCH ×2 (08:32→21:25)
[2022-08-15] MEDS: PANTOPRAZOLE 40 MG (PROTONIX) TAB PO SCH (08:32)
[2022-08-15] MEDS: MAGNESIUM OXIDE (MAG-OX)400 MG TAB PO SCH ×2 (08:32→16:46)
[2022-08-15] MEDS: SENNA W/DOCUSATE (SENOKOT S) TABLET PO SCH ×2 (08:58→21:25)
[2022-08-15] MEDS: polyethylene glycoL POWDER 17 GM (MIRALAX) PACK PO SCH ×2 (08:58→21:25)
--- NOTE | 2022-08-15 10:15 | Physical Therapy Daily Note ---
PT Daily Note-Current Subjective Patient in bed pre tx, agrees to PT, has no complaints of pain. Pain Section J - Health Conditions 1. Rarely or not at all 2. Occasionally 3. Frequently 4. Almost constantly 8. Unable to answer Pain Effect on Sleep: 1 Pain Interference with Therapy: 1 Pain Interference w/Day-to-Day: 1 Appearance Patient in bed post tx with nurse call, phone, tray, all needs met. Mental Status Patient Orientation: Normal For Age Transfers SCALE: Activities may be completed with or without assistive devices. 6-Byfvuqdrha-gapmnmo completes the activity by him/herself with no assistance from a helper. 5-Set-up or Clean-up Assistance-helper sets up or cleans up; patient completes activity. [place] assists only prior to or following the activity. 4-Supervision or Touching Assistance-helper provides verbal cues and/or touching/steadying and/or contact guard assistance as patient completes activity. Assistance may be provided throughout the activity or intermittently. 3-Partial/Moderate Assistance-helper does LESS THAN HALF the effort. [place] lifts, holds or supports trunk or limbs, but provides less than half the effort. 2-Substantial/Maximal Assistance-helper does MORE THAN HALF the effort. [place] lifts or holds trunk or limbs and provides more than half the effort. 8-Zinxxegym-ntrnps does ALL the effort. Patient does none of the effort to complete the activity. Or, the assistance of 2 or more helpers is required for the patient to complete the activity. If activity was not attempted, code reason: 7-Patient Refused. 9-Not Applicable-not attempted and the patient did not perform the activity before the current illness, exacerbation or injury. 10-Not Attempted due to Environmental Limitations-(lack of equipment, weather restraints, etc.). 88-Not Attempted due to Medical Conditions or Safety Concerns. Roll Left & Right (QC): 6 Sit to Lying (QC): 6 Lying to Sitting/Side of Bed(Q: 6 Sit to Stand (QC): 6 Weight Bearing Right Lower Extremity: Right Full Weight Bearing Left Lower Extremity: Left Full Weight Bearing Gait Training Distance: 400' Walk 10 feet (QC): 6 Walk 50 ft with 2 Turns(QC): 6 Walk 150 ft (QC): 6 Gait Assistive Device: None independent ambulation, walks about her room without assistive device Treatments bed mobility and transfers, ambulation Assessment Current Status: Excellent Progress independent with mobility PT Penitentiary Goals Penitentiary Goals PT Digital Design Engineer Goals Time Frame: Aug 22, 2022 Roll Left & Right (QC): 6 Sit to Lying (QC): 6 Lying-Sitting on Side/Bed(QC): 6 Sit to Stand (QC): 6 Chair/Tko-tl-Burir Xfer(QC): 6 Toilet Transfer (QC): 6 Car Transfer (QC): 6 Does the Patient Walk: Yes Walk 10 feet (QC): 6 Walk 50ft with 2 Turns (QC): 6 Walk 150 ft (QC): 6 Walking 10ft on Uneven Surface: 6 1 Step (curb) (QC): 6 4 Steps (QC): 6 12 Steps (QC): 6 Picking up an Object (QC): 6 Wheel 50 feet with 2 turns (QC: 9 Wheel 150 feet: 9 PT Plan Problem List Problem List: Activity Tolerance Treatment/Plan Treatment Plan: Continue Plan of Care Treatment Plan: Education, Functional Activity Tiera, Functional Strength, Group Therapy, Gait, Safety, Therapeutic Exercise, Transfers Treatment Duration: Sep 01, 2022 Frequency: At least 5 of 7 days/Wk (IRF) Estimated Hrs Per Day: 1.5 hours per day Patient and/or Family Agrees t: Yes Safety Risks/Education Patient Education: Gait Training, Transfer Techniques, Correct Positioning, Safety Issues Teaching Recipient: Patient Teaching Methods: Demonstration, Discussion Response to Teaching: Verbalize Understanding, Return Demonstration Time Time In: 946 Time Out: 954 DATE: Aug 15, 2022 Total Billed Treatment Time: 8 Total Billed Treatment 1 visit GT ADRIAN LITTLE PT Aug 15, 2022 10:15
[2022-08-15] MEDS: ENOXAPARIN 40 MG/0.4 ML (LOVENOX) SYR SC SCH (11:17)
[2022-08-15] MEDS ORDERED: BLOO1EAC87 MC (12:18)
[2022-08-15] MEDS ORDERED: LANC1COM6 MC (12:18)
[2022-08-15] MEDS ORDERED: INSU100I29 SQ (12:40)
[2022-08-15] MEDS ORDERED: INSU100I14 SQ (12:40)
[2022-08-15] MEDS ORDERED: PEN-53 MC (12:40)
[2022-08-15] MEDS ORDERED: MGX400T PO (12:40)
--- NOTE | 2022-08-15 12:53 | PM&R Progress Note ---
Subjective HPI/CC On Admission Date Seen by Provider: Aug 15, 2022 Time Seen by Provider: 12:30 Subjective/Events-last exam 08/15/2022: Set for DC tomorrow Adjusted insulin Confirmed all meds will be covered by insurance 08/14/2022: Insulin working well Decreased insulin today Updated patient and partner regarding COVID and DKA 08/13/2022: Dramatically improved Sugars reviewed DM education will be provided today No pain Improved confusion Review of Systems General: Fatigue, Malaise Objective Exam Vital Signs Vital Signs Date Time Temp Pulse Resp B/P (MAP) Pulse Ox O2 Delivery O2 Flow Rate FiO2 08/15/22 21:25 95 Room Air 08/15/22 20:00 36.6 98 18 133/67 (89) 08/15/22 00:03 21 Capillary Refill : General Appearance: No Apparent Distress, WD/WN, Chronically ill HEENT: PERRL/EOMI, Normal ENT Inspection, Pharynx Normal Neck: Full Range of Motion, Normal Inspection, Non Tender, Supple, Carotid Bruit Respiratory: Chest Non Tender, Lungs Clear, Normal Breath Sounds, No Accessory Muscle Use, No Respiratory Distress Cardiovascular: Regular Rate, Rhythm, No Edema, No Gallop, No JVD, No Murmur, Normal Peripheral Pulses Gastrointestinal: Normal Bowel Sounds, No Organomegaly, No Pulsatile Mass, Non Tender, Soft Back: Normal Inspection, No CVA Tenderness, No Vertebral Tenderness Extremity: Normal Capillary Refill, Normal Inspection, Normal Range of Motion, Non Tender, No Calf Tenderness, No Pedal Edema Neurologic/Psychiatric: Alert, Oriented x3 (mild delay in processing), No Motor/Sensory Deficits, Normal Mood/Affect, day porter II-XII Norm as Tested, Motor Weakness (generalized) Skin: Normal Color, Warm/Dry Lymphatic: No Adenopathy Results/Procedures Lab Laboratory Tests 08/15/22 07:50 Patient resulted labs reviewed. FIM Transfers Therapy Code Descriptions/Definitions Functional [place] Measure: 0=Not Assessed/NA 4=Minimal Assistance 1=Total Assistance 5=Supervision or Setup 2=Maximal Assistance 6=Modified [place] 3=Moderate Assistance 7=Complete IndependenceSCALE: Activities may be completed with or without assistive devices. 6-Irqwpslzvf-wcgybil completes the activity by him/herself with no assistance from a helper. 5-Set-up or Clean-up Assistance-helper sets up or cleans up; patient completes activity. [place] assists only prior to or following the activity. 4-Supervision or Touching Assistance-helper provides verbal cues and/or touching/steadying and/or contact guard assistance as patient completes activity. Assistance may be provided throughout the activity or intermittently. 3-Partial/Moderate Assistance-helper does LESS THAN HALF the effort. [place] lifts, holds or supports trunk or limbs, but provides less than half the effort. 2-Substantial/Maximal Assistance-helper does MORE THAN HALF the effort. [place] lifts or holds trunk or limbs and provides more than half the effort. 7-Xmphtliim-qudthd does ALL the effort. Patient does none of the effort to complete the activity. Or, the assistance of 2 or more helpers is required for the patient to complete the activity. If activity was not attempted, code reason: 7-Patient Refused. 9-Not Applicable-not attempted and the patient did not perform the activity before the current illness, exacerbation or injury. 10-Not Attempted due to Environmental Limitations-(lack of equipment, weather restraints, etc.). 88-Not Attempted due to Medical Conditions or Safety Concerns. Roll Left to Right (QC): 6 Sit to Lying (QC): 6 Sit to Stand (QC): 6 Chair/Zph-ri-Tohqv Xfer(QC): 6 Car Transfer (QC): 6 Gait Training Does the Patient Walk?: Yes Distance: 400' Walk 10 feet (QC): 6 Walk 50 ft with 2 Turns(QC): 6 Walk 150 ft (QC): 6 Walking 10ft/uneven surface-QC: 6 Gait Persons Needed: 0 Gait Assistive Device: None Wheelchair Training Does the Pt Use a Wheelchair?: No Wheel 50 ft with 2 turns (QC): 9 Wheel 150 ft (QC): 9 Stair Training Stair Training: Handrails/: 1 handrail #of Steps: 12 1 Step (curb) (QC): 6 4 Steps (QC): 6 12 Steps (QC): 6 Stairs: Pattern: Reciprocal Balance Picking up an Object (QC): 6 ADL-Treatment Eating (QC): 6 Oral Hygiene (QC): 6 Shower/Bathe Self (QC): 6 Upper Body Dressing (QC): 6 Lower Body Dressing (QC): 6 On/Off Footwear (QC): 6 Toileting Hygiene (QC): 6 Toilet Transfer (QC): 6 Assessment/Plan Assessment and Plan Assess & Plan/Chief Complaint Assessment: Brain dysfunction of encephalopathy from COVID and DKA with new onset DM Weakness Breast cancer HTN HLP OP Plan: Insulin PT OT DM education Monitor pain 08/13/2022: DM education Improved 08/14/2022: Decrease insulin 08/15/2022: DC tomorrow Adjusted insulin (1) Encephalopathy (2) DKA (diabetic ketoacidosis) Status: Acute Qualifiers: Qualified Codes: E11.10 - Type 2 diabetes mellitus with ketoacidosis without coma (3) COVID Status: Acute BRAD DIAS DO Aug 15, 2022 12:53
[2022-08-15 20:00] VITALS: BP 133/67
[2022-08-16] MEDS: inSUlin ASPART (NovoLOG) 1 UNIT/0.01 ML (CHARGE PER UNIT) SC SCH ×2 (07:06→07:07)
[2022-08-16] MEDS: MULTIVIT W/MINERALS TAB (THERAGRAN M) PO SCH (07:07)
[2022-08-16] MEDS ORDERED: INSU100I14 SQ (07:21)
[2022-08-16] MEDS ORDERED: INSU100I29 SQ (07:21)
--- NOTE | 2022-08-16 07:35 | Discharge Summary ---
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 with new onset DM Weakness Breast cancer HTN HLP OP Plan: Insulin PT OT DM education Monitor pain 08/13/2022: DM education Improved 08/14/2022: Decrease insulin 08/15/2022: DC tomorrow Adjusted insulin (1) Encephalopathy (2) DKA (diabetic ketoacidosis) Status: Acute Qualifiers: Qualified Codes: E11.10 - Type 2 diabetes mellitus with ketoacidosis without coma (3) COVID Status: Acute Discharge Summary Discharge Physical Examination Allergies: Coded Allergies: oxycodone HCl (Unverified Allergy, Unknown, RASH, 07/02/20) Vitals & I&Os Vital Signs Date Time Temp Pulse Resp B/P (MAP) Pulse Ox O2 Delivery O2 Flow Rate FiO2 08/16/22 08:10 Room Air 08/16/22 07:36 36.4 99 18 120/72 (88) 99 08/15/22 00:03 21 General Appearance: Alert, Oriented X3, Cooperative Respiratory: Clear to Auscultation Cardiovascular: Regular Rate Psych/Mental Status: Mental Status NL Hospital Course Was the Problem List Reviewed?: Yes Brief ARU course after complicated ICU course with encephalopathy and new onset DM with DKA following COVID infection. She received DM education and did well with injections and insulin was altered upon review of accuchecks. Patient's encephalopathy cleared and patient was deemed stable for DC. Labs (last 24 hrs) Laboratory Tests 08/12/22 11:52: Glucometer 258H 08/12/22 15:18: Glucometer 204H 08/12/22 20:23: Glucometer 118H 08/13/22 05:54: White Blood Count 5.8, Red Blood Count 4.25, Hemoglobin 11.7, Hematocrit 34L, Mean Corpuscular Volume 81, Mean Corpuscular Hemoglobin 28, Mean Corpuscular Hemoglobin Concent 34, Red Cell Distribution Width 13.6, Platelet Count 254, Mean Platelet Volume 11.0, Immature Granulocyte % (Auto) 5, Neutrophils (%) (Auto) 46, Lymphocytes (%) (Auto) 37, Monocytes (%) (Auto) 11, Eosinophils (%) (Auto) 1, Basophils (%) (Auto) 0, Neutrophils # (Auto) 2.7, Lymphocytes # (Auto) 2.2, Monocytes # (Auto) 0.7, Eosinophils # (Auto) 0.1, Basophils # (Auto) 0.0, Immature Granulocyte # (Auto) 0.3H, Sodium Level 139, Potassium Level 2.5*L, Chloride Level 102, Carbon Dioxide Level 26, Anion Gap 11, Blood Urea Nitrogen 5L, Creatinine 0.53L, Estimat Glomerular Filtration Rate 108, BUN/Creatinine Ratio 9, Glucose Level 122H, Calcium Level 9.1, Corrected Calcium 10.1, Magnesium Level 1.8, Total Bilirubin 0.3, Aspartate Amino Transf (AST/SGOT) 11, Alanine Aminotransferase (ALT/SGPT) 12, Alkaline Phosphatase 62, Total Protein 5.3L, Albumin 2.8L 08/13/22 10:46: Glucometer 151H 08/13/22 15:52: Glucometer 110 08/13/22 21:07: Glucometer 84 08/14/22 05:49: Glucometer 104 08/14/22 06:48: Sodium Level 140, Potassium Level 2.8L, Chloride Level 101, Carbon Dioxide Level 26, Anion Gap 13, Blood Urea Nitrogen 6L, Creatinine 0.52L, Estimat Glomerular Filtration Rate 108, BUN/Creatinine Ratio 12, Glucose Level 101, Calcium Level 9.2 08/14/22 11:10: Glucometer 162H 08/14/22 16:12: Glucometer 201H 08/14/22 21:08: Glucometer 191H 08/15/22 06:10: Glucometer 212H 08/15/22 07:50: Sodium Level 137, Potassium Level 3.8, Chloride Level 100, Carbon Dioxide Level 24, Anion Gap 13, Blood Urea Nitrogen 8, Creatinine 0.62, Estimat Glomerular Filtration Rate 104, BUN/Creatinine Ratio 13, Glucose Level 276H, Calcium Level 9.8 08/15/22 11:16: Glucometer 277H 08/15/22 15:32: Glucometer 187H 08/15/22 19:57: Glucometer 212H 08/16/22 06:03: Glucometer 189H Pending Labs Laboratory Tests 08/12/22 11:52: Glucometer 258 08/12/22 15:18: Glucometer 204 08/12/22 20:23: Glucometer 118 08/13/22 05:54: White Blood Count 5.8, Red Blood Count 4.25, Hemoglobin 11.7, Hematocrit 34, Mean Corpuscular Volume 81, Mean Corpuscular Hemoglobin 28, Mean Corpuscular Hemoglobin Concent 34, Red Cell Distribution Width 13.6, Platelet Count 254, Mean Platelet Volume 11.0, Immature Granulocyte % (Auto) 5, Neutrophils (%) (Aut o) 46, Lymphocytes (%) (Auto) 37, Monocytes (%) (Auto) 11, Eosinophils (%) (Auto) 1, Basophils (%) (Auto) 0, Neutrophils # (Auto) 2.7, Lymphocytes # (Auto) 2.2, Monocytes # (Auto) 0.7, Eosinophils # (Auto) 0.1, Basophils # (Auto) 0.0, Immature Granulocyte # (Auto) 0.3, Sodium Level 139, Potassium Level 2.5, Chloride Level 102, Carbon Dioxide Level 26, Anion Gap 11, Blood Urea Nitrogen 5, Creatinine 0.53, Estimat Glomerular Filtration Rate 108, BUN/Creatinine Ratio 9, Glucose Level 122, Calcium Level 9.1, Corrected Calcium 10.1, Magnesium Level 1.8, Total Bilirubin 0.3, Aspartate Amino Transf (AST/SGOT) 11, Alanine Aminotransferase (ALT/SGPT) 12, Alkaline Phosphatase 62, Total Protein 5.3, Albumin 2.8 08/13/22 10:46: Glucometer 151 08/13/22 15:52: Glucometer 110 08/13/22 21:07: Glucometer 84 08/14/22 05:49: Glucometer 104 08/14/22 06:48: Sodium Level 140, Potassium Level 2.8, Chloride Level 101, Carbon Dioxide Level 26, Anion Gap 13, Blood Urea Nitrogen 6, Creatinine 0.52, Estimat Glomerular Filtration Rate 108, BUN/Creatinine Ratio 12, Glucose Level 101, Calcium Level 9.2 08/14/22 11:10: Glucometer 162 08/14/22 16:12: Glucometer 201 08/14/22 21:08: Glucometer 191 08/15/22 06:10: Glucometer 212 08/15/22 07:50: Sodium Level 137, Potassium Level 3.8, Chloride Level 100, Carbon Dioxide Level 24, Anion Gap 13, Blood Urea Nitrogen 8, Creatinine 0.62, Estimat Glomerular Filtration Rate 104, BUN/Creatinine Ratio 13, Glucose Level 276, Calcium Level 9.8 08/15/22 11:16: Glucometer 277 08/15/22 15:32: Glucometer 187 08/15/22 19:57: Glucometer 212 08/16/22 06:03: Glucometer 189 Discharge Home Medications: Active Scripts Active Novolog Flexpen (Insulin Aspart) 100 Unit/Ml (3 Ml) Solution 12 Units SQ AC Levemir Flextouch (Insulin Detemir) 100 Unit/Ml (3 Ml) Insuln.pen 20 Unit SQ BID Advocate Pen Needle (Pen Needle, Diabetic) 33 Gauge X 5/32" Dis.needle Each ACHS Magnesium Oxide 400 Mg (241.3 Mg Magnesium) Tablet 400 Mg PO BIDPC Lancet 30G-Glucose Test Strip (Lancets/Blood Glucose Strips) 30 Gauge Combo..pkg Each ACHS Blood Glucose Meter (Blood-Glucose Meter) 1 Each Each Each ACHS Reported Alendronate Sodium 70 Mg Tablet 70 Mg PO SUN Instructions to patient/family Please see electronic discharge instructions given to patient. Diagnosis/Problems Diagnosis/Problems (1) Encephalopathy (2) DKA (diabetic ketoacidosis) Status: Acute Qualifiers: Qualified Codes: E11.10 - Type 2 diabetes mellitus with ketoacidosis without coma (3) COVID Status: Acute BRAD DIAS DO Aug 16, 2022 07:35
[2022-08-16 07:36] VITALS: BP 120/72
[2022-08-16] MEDS: KCL 20 MEQ TAB (K-DUR) PO SCH (07:37)
[2022-08-16] MEDS: PANTOPRAZOLE 40 MG (PROTONIX) TAB PO SCH (07:37)
[2022-08-16] MEDS: DOCUSATE SODIUM 100 MG (COLACE) CAP PO SCH (07:38)
[2022-08-16] MEDS: MAGNESIUM OXIDE (MAG-OX)400 MG TAB PO SCH (07:38)
[2022-08-16] MEDS ORDERED: inSUlin ASPART (NovoLOG) 1 UNIT/0.01 ML (CHARGE PER UNIT) SC SCH (12:00)
--- NOTE | 2022-08-17 10:56 | Therapy Team Discharge Summary ---
Therapy Discharge Summary Discharge Recommendations Date of Discharge Aug 16, 2022 at 09:00 Physical Therapy Roll Left to Right (QC): 6 Sit to Lying (QC): 6 Lying to Sitting/Side of Bed(Q: 6 Sit to Stand (QC): 6 Chair/Cgl-tt-Mxylh Xfer(QC): 6 Toilet Transfer (QC): 6 Car Transfer (QC): 6 Does the Patient Walk: Yes Mode of Locomotion: Walk Anticipated Mode of Locomotion: Walk Walk 10 feet (QC): 6 Walk 50 ft with 2 Turns(QC): 6 Walk 150 ft (QC): 6 Walking 10ft on uneven surface: 6 Distance: 250 feet Gait Assistive Device: None Does the Pt Use a Wheelchair: No Wheel 50 ft with 2 turns (QC): 9 Wheel 150 ft (QC): 9 #of Steps: 12 1 Step (curb) (QC): 6 4 Steps (QC): 6 12 Steps (QC): 6 Balance Sitting Static: Normal Balance Sitting Dynamic: Normal Balance-Standing Static: Good Picking up an Object (QC): 6 Occupational Therapy Pt admitted to ARU with DKA and COVID-19. At [facility], pt was independent with ADLs and functional mobility without AD. Upon initial evaluation, pt was independent with eating, required set up with oral care, showering, footwear and toileting, and SBA with UE/LE dressing. OT tx focused on increasing BUE strength and activity tolerance, and increasing safety and independence with ADLS and functional mobility. Pt made good progress towards goals, attaining IND level with all ADLS. Pt discharged from facility, d/c from OT. Decreased Activ Tolerance Eating (QC): 6 Oral Hygiene (QC): 6 Shower/Bathe Self (QC): 6 Upper Body Dressing (QC): 6 Lower Body Dressing (QC): 6 On/Off Footwear (QC): 6 Toileting Hygiene (QC): 6 PT Director Inbound Sales Goals Director Inbound Sales Goals PT Director Inbound Sales Goals Time Frame: Aug 22, 2022 Roll Left to Right (QC): 6 Sit to Lying (QC): 6 Lying-Sitting on Side/Bed(QC): 6 Sit to Stand (QC): 6 Chair/Vdo-ug-Iceke Xfer(QC): 6 Toilet/Commode Transfer (QC): 6 Car Transfer (QC): 6 Does the Patient Walk: Yes Walk 10 feet (QC): 6 Walk 10ft-Uneven Surface(QC): 6 Walk 50ft with 2 Turns (QC): 6 Walk 150 ft (QC): 6 Wheel 50 feet with 2 turns (QC: 9 Wheel 150 feet: 9 1 Step (curb) (QC): 6 4 Steps (QC): 6 12 Steps (QC): 6 Picking up an Object (QC): 6 OT Director Inbound Sales Goals Director Inbound Sales Goals Acute change in mental status: 0 Inattention: 0 Disorganized thinkin Altered level of consciousness: 0 Eating (QC): 6 (met) Oral Hygiene (QC): 6 (met) Toileting Hygiene (QC): 6 (met) Shower/Bathe Self (QC): 6 (met) Upper Body Dressing (QC): 6 (me) Lower Body Dressing (QC): 6 (met) On/Off Footwear (QC): 6 (met) Additional Goals: 3-ImproveStrength/Tiera 1=Demonstrate adherence to instructed precautions during ADL tasks. 2=Patient will verbalize/demonstrate understanding of assistive devices/modifications for ADL. 3=Patient will improve strength/tolerance for activity to enable patient to perform ADL's. SHAWN VALERA OT Aug 17, 2022 10:56
== END 2022-08-16 09:00 | disposition home or self-care (01) | DRG 72 ==
PROVIDERS: ADMIT Internal Medicine; ATTEND Internal Medicine
DX: G93.49 Other encephalopathy (principal); U09.9 Post COVID-19 condition, unspecified; E11.9 Type 2 diabetes mellitus without complications; D25.9 Leiomyoma of uterus, unspecified; E78.00 Pure hypercholesterolemia, unspecified; I10 Essential (primary) hypertension; M81.0 Age-related osteoporosis without current pathological fracture; Z79.4 Long term (current) use of insulin; Z85.3 Personal history of malignant neoplasm of breast; Z88.5 Allergy status to narcotic agent
CPT/HCPCS: 36415; 80048; 80053; 82947; 83735; 85025; 94760

== ENCOUNTER → 2022-10-06 | Outpatient (CLI) | payer BC ==
[~2022-10-06] MED LIST changes: +BLOO1EAC87 MC; +INSU100I14 SQ; +INSU100I30 SQ; +LANC1COM6 MC; +MGX400T PO; +PEN-53 MC
--- NOTE | 2022-10-06 09:30 | Diagnostic Imaging Report ---
INDICATION: Postmenopausal screening COMPARISON: 07/02/2020 FINDINGS: AP Spine L1-L4: [BMD (g/cm2): 1.035] [T-Score: -0.8] [Z-Score: -0.2] [BMD Previous: 0.964] [BMD % Change: 7.4] LT Hip Neck: [BMD (g/cm2): 0.934] [T-Score: -0.7] [Z-Score: 0.1] LT Hip Total: [BMD (g/cm2):0.996] [T-Score:-0.1] [Z-Score: 0.4] [BMD Previous: 1.048] [BMD % Change: -5.0*] RT Hip Neck: [BMD (g/cm2):0.937] [T-Score:-0.7] [Z-Score:0.2] RT Hip Total: [BMD (g/cm2):0.986] [T-score:-0.2] [Z-Score:0.3] [BMD Previous:0.983] [BMD % Change:0.3] *Indicates significant change from prior examination based on 95% confidence level. World Health Organization criteria for BMD interpretation classify patients as Normal (T-score at or above -1.0), Osteopenic (T-score between -1.0 and -2.5) or Osteoporotic (T-score at or below -2.5). LIMITATIONS AND MODIFICATION: None. FRACTURE RISK (FRAX SCORE): The ten year probability of (%): Major Osteoporotic Fracture: [na] Hip Fracture: [na] IMPRESSION: 1. Osteopenia (Low bone mass). 2. no significant interval change 3. See below National Osteoporosis Foundation guidelines on when to potentially initiate pharmacologic therapy. Based on the National Osteoporosis Foundation Guidelines, pharmacologic treatment should be initiated in any of the following, unless clinical conditions suggest otherwise: * Any patient with prior fragility fracture of the hip or vertebrae. A spine fracture indicates 5X risk for subsequent spine fracture and 2X risk for subsequent hip fracture. * Osteoporosis (T-score <-2.5). * Postmenopausal women and men age 50 and older with low bone mass/osteopenia (T-score between -1.0 and -2.5) by DXA and 10-year major osteoporotic fracture greater than 20% or a 10-year probability of hip fracture greater than 3%. These fracture risks are supplied above in the FRAX score, if applicable. * Clinician judgement and/or patient preferences may indicate treatment for people with 10-year fracture probabilities above or below these levels. Dictated by: Dictated on workstation # [id number]
--- NOTE | 2022-10-06 11:16 | Diagnostic Imaging Report ---
EXAMINATION: 3D bilateral screening mammogram with CAD. INDICATION: Screening. COMPARISON: This study was compared to the prior exams of 07/07/2021 and 07/02/2020. PERSONAL HISTORY: At this time, there are no current complaints. By history, the patient has had a prior lumpectomy on the right for carcinoma. FINDINGS: The post surgical and post treatment changes involving the right breast seen on the previous exams are again evident and no different. There is architectural distortion and calcifications in the lumpectomy site at the 11 to 12 o'clock position of the right breast. The fibroglandular tissue in both breasts is heterogeneously dense and this does limit the sensitivity of this exam. Overall, there does not appear to have been any significant change. There is no primary or secondary sign of malignancy noted. IMPRESSION: The post surgical and post therapeutic changes involving the right breast seen previously are again evident and no different. There is no sign of recurrent malignancy on the right nor is there any evidence for malignancy involving the left breast. ACR BI-RADS Category 1: Negative. Result letter will be mailed to the patient. Note: At least 10% of breast cancer is not imaged by mammography. Dictated by: Dictated on workstation # [id number]
== END ==
LOC: RAD 08:38
PROVIDERS: ATTEND Internal Medicine Hematology & Oncology
DX: Z12.31 Encounter for screening mammogram for malignant neoplasm of breast (principal); Z13.820 Encounter for screening for osteoporosis; M85.80 Other specified disorders of bone density and structure, unspecified site; Z98.890 Other specified postprocedural states
CPT/HCPCS: 77063; 77067; 77080

== ENCOUNTER 2023-01-09 15:23 | Emergency (ER) | payer BC ==
[2023-01-09] MEDS ORDERED: ONDANSETRON 4 MG/2 ML (SDV) Z0FRAN IVP STA ×2 (15:28→17:00)
[2023-01-09] MEDS ORDERED: NS IV 1000 ML 1,000 ML IV STA ×3 (15:28→16:48)
[2023-01-09 15:37] LABS: BILIRUBIN,URINE NEGATIVE (NEGATIVE); CLARITY,URINE CLEAR; COLOR,URINE YELLOW; GLUCOSE, URINE (UA) 2+ (NEGATIVE); KETONES,URINE 3+ (NEGATIVE); LEUKOCYTE ESTERASE ,URINE NEGATIVE (NEGATIVE); NITRITE,URINE NEGATIVE (NEGATIVE); PH,URINE 6.5 (5-9); PROTEIN,URINE 1+ (NEGATIVE)
[2023-01-09 15:42] LABS: BACTERIA,URINE MODERATE /HPF
--- NOTE | 2023-01-09 15:43 | ED General ---
General Stated Complaint: VOMITING Source of Information: Patient History of Present Illness Date Seen by Provider: Jan 09, 2023 Time Seen by Provider: 15:26 Initial Comments 57-year-old female presenting with complaints of nausea vomiting and chills si nce this morning. Initially she thought that she maybe ate some bad turkey last night and that was causing her to throw up. As the day progressed she became concerned that this was similar to the end of July beginning of August when she had to be admitted for COVID and was diagnosed with diabetes and DKA. She does take insulin at home as well as Fosamax once a week. She denies any ill contacts. She has had no cough, shortness of breath, fever, abdominal pain, pain with urination. She states that she did just start having diarrhea this afternoon. She was vomiting on arrival to the ED. Timing/Duration: 4-6 Hours Severity: Moderate Modifying Factors: worse with Eating, worse with Movement Associated Systoms: No Chest Pain, No Cough; Fever/Chills (chills but no fever), Malaise, Nausea/Vomiting; No Shortness of Air, No Syncope; Weakness Allergies and Home Medications Allergies Coded Allergies: oxycodone HCl (Unverified Allergy, Unknown, RASH, 07/02/20) Patient Home Medication List Home Medication List Reviewed: Yes Alendronate Sodium (Alendronate Sodium) 70 Mg Tablet, 70 MG PO SELIN, (Reported) Entered as Reported by: TILA JAVIER on 08/10/22 1001 Blood-Glucose Meter (Blood Glucose Meter) 1 Each Each, EACH [facility], (DME) Prescribed by: BRAD DIAS on 08/15/22 1218 Insulin Aspart (Novolog Flexpen) 100 Unit/Ml (3 Ml) Solution, 12 UNITS SQ AC Prescribed by: BRAD DIAS on 08/16/22 0721 Insulin Detemir (Levemir Flextouch) 100 Unit/Ml (3 Ml) Insuln.pen, 20 UNIT SQ BID Prescribed by: BRAD DIAS on 08/16/22 0721 Lancets/Blood Glucose Strips (Lancet 30G-Glucose Test Strip) 30 Gauge Combo..pkg, EACH [facility], (DME) Prescribed by: BRAD DIAS on 08/15/22 1218 Magnesium Oxide (Magnesium Oxide) 400 Mg (241.3 Mg Magnesium) Tablet, 400 MG PO BIDPC Prescribed by: BRAD DIAS on 08/15/22 1240 Pen Needle, Diabetic (Advocate Pen Needle) 33 Gauge X 5/32" Dis.needle, EACH [facility], (DME) Prescribed by: BRAD DIAS on 08/15/22 1240 Review of Systems Review of Systems Constitutional: chills; No fever; malaise, weakness (general) EENTM: No nose congestion, No throat pain Respiratory: No cough, No short of breath Cardiovascular: No chest pain, No edema; palpitations Gastrointestinal: No abdominal pain; diarrhea, nausea, vomiting Genitourinary: No dysuria Musculoskeletal: no symptoms reported Skin: No rash Psychiatric/Neurological: Anxiety; Denies Headache Past Soqxtez-Zuxdla-Wiwvfw Hx Patient Social History Tobacco Use?: No Use of E-Cig and/or Vaping dev: No Substance use?: No Alcohol Use?: No Past Medical History Surgery/Hospitalization HX: HTN; Osteoporosis; Type 2 DM Insulin Dependent, Hysterectomy 2007, Breast Cancer 2007 (surgical intervention) Surgeries: Yes Breast, Hysterectomy, Lumpectomy High Cholesterol, Hypertension Reproductive Disorders: Yes (UTERINE FIBROIDS) Osteoporosis Diabetes, Non-Insulin dep Physical Exam Vital Signs Vital Signs - First Documented 01/09/23 15:25 Temp 36.7 Pulse 114 Resp 20 B/P (MAP) 174/81 (112) Pulse Ox 98 O2 Delivery Room Air Capillary Refill : Height, Weight, BMI Height: '" Weight: lbs. oz. kg; 28.06 BMI Method: General Appearance: Mild Distress HEENT: PERRL/EOMI; No Moist Mucous Membranes (slightly dry mucus membranes) Neck: Full Range of Motion, Normal Inspection, Non Tender, Supple Respiratory: Chest Non Tender, Lungs Clear, Normal Breath Sounds, No Accessory Muscle Use, No Respiratory Distress Cardiovascular: Normal Peripheral Pulses, Tachycardia Gastrointestinal: No Pulsatile Mass, Non Tender, Soft, Abnormal Bowel Sounds (hyperactive) Rectal: Deferred Extremity: Normal Capillary Refill, Normal Inspection, No Pedal Edema Neurologic/Psychiatric: Alert, Oriented x3, aerospace control and warning systems II-XII Norm as Tested Skin: Warm/Dry Progress/Results/Core Measures Suspected Sepsis SIRS Temperature: Pulse: Respiratory Rate: Laboratory Tests 01/09/23 15:40: White Blood Count 14.4H Blood Pressure / Mean: Laboratory Tests 01/09/23 15:40: Creatinine 0.48L, Platelet Count 345, Total Bilirubin 0.4 Results/Orders Lab Results Laboratory Tests Test 01/09/23 15:25 01/09/23 15:35 01/09/23 15:40 01/09/23 15:44 Range/Units Urine Color YELLOW Urine Clarity CLEAR Urine pH 6.5 5-9 Urine Specific [place] 1.020 1.016-1.022 Urine Protein 1+ H NEGATIVE Urine Glucose (UA) 2+ H NEGATIVE Urine Ketones 3+ H NEGATIVE Urine Nitrite NEGATIVE NEGATIVE Urine Bilirubin NEGATIVE NEGATIVE Urine Urobilinogen 0.2 < = 1.0 MG/DL Urine Leukocyte Esterase NEGATIVE NEGATIVE Urine RBC (Auto) NEGATIVE NEGATIVE Urine RBC 2-5 H /HPF Urine WBC 5-10 H /HPF Urine Squamous Epithelial Cells 5-10 /HPF Urine Crystals NONE /LPF Urine Bacteria MODERATE H /HPF Urine Casts NONE /LPF Urine Mucus NEGATIVE /LPF Urine Culture Indicated YES SARS-CoV-2 RNA (RT-PCR) Not Detected Not Detecte White Blood Count 14.4 H 4.3-11.0 10^3/uL Red Blood Count 5.22 H 3.80-5.11 10^6/uL Hemoglobin 14.5 11.5-16.0 g/dL Hematocrit 46 35-52 % Mean Corpuscular Volume 89 80-99 fL Mean Corpuscular Hemoglobin 28 25-34 pg Mean Corpuscular Hemoglobin Concent 31 L 32-36 g/dL Red Cell Distribution Width 12.8 10.0-14.5 % Platelet Count 345 130-400 10^3/uL Mean Platelet Volume 12.1 9.0-12.2 fL Immature Granulocyte % (Auto) 1 % Neutrophils (%) (Auto) 86 H 42-75 % Lymphocytes (%) (Auto) 12 12-44 % Monocytes (%) (Auto) 1 0-12 % Eosinophils (%) (Auto) 0 0-10 % Basophils (%) (Auto) 0 0-10 % Neutrophils # (Auto) 12.4 H 1.8-7.8 10^3/uL Lymphocytes # (Auto) 1.7 1.0-4.0 10^3/uL Monocytes # (Auto) 0.2 0.0-1.0 10^3/uL Eosinophils # (Auto) 0.0 0.0-0.3 10^3/uL Basophils # (Auto) 0.1 0.0-0.1 10^3/uL Immature Granulocyte # (Auto) 0.1 0.0-0.1 10^3/uL Neutrophils % (Manual) 88 % Lymphocytes % (Manual) 12 % Venous Blood pH 7.46 H 7.31-7.41 Venous Blood Partial Pressure CO2 28 L 40-52 MMHG Venous Blood HCO3 32 H 22-28 MMOL/L Sodium Level 137 135-145 MMOL/L Potassium Level 3.8 3.6-5.0 MMOL/L Chloride Level 98 98-107 MMOL/L Carbon Dioxide Level 17 L 21-32 MMOL/L Anion Gap 22 H 5-14 MMOL/L Blood Urea Nitrogen 12 7-18 MG/DL Creatinine 0.48 L 0.60-1.30 MG/DL Estimat Glomerular Filtration Rate 110 BUN/Creatinine Ratio 25 Glucose Level 286 H 70-105 MG/DL Calcium Level 10.2 H 8.5-10.1 MG/DL Corrected Calcium 8.5-10.1 MG/DL Total Bilirubin 0.4 0.1-1.0 MG/DL Aspartate Amino Transf (AST/SGOT) 19 5-34 U/L Alanine Aminotransferase (ALT/SGPT) 17 0-55 U/L Alkaline Phosphatase 73 40-136 U/L Troponin I < 0.30 <0.30 NG/ML Total Protein 7.9 6.4-8.2 GM/DL Albumin 4.6 H 3.2-4.5 GM/DL Lipase 16 8-78 U/L Glucometer 289 H 70-110 MG/DL My Orders Orders - KAYLEIGH GLASER MD Comprehensive Metabolic Panel (01/09/23 15:28) Lipase (01/09/23 15:28) Ua Culture If Indicated (01/09/23 15:28) Ed Iv/Invasive Line Start (01/09/23 15:28) Cbc With Automated Diff (01/09/23 15:28) Accucheck Stat ONCE (01/09/23 15:28) Ondansetron Injection (Zofran Injectio (01/09/23 15:28) Ns Iv 1000 Ml (Sodium Chloride 0.9%) (01/09/23 15:28) Ekg Tracing (01/09/23 15:35) Monitor-Rhythm Ecg Trace Only (01/09/23 15:35) Covid 19 Inhouse Test (01/09/23 15:35) Venous Blood Gas (01/09/23 15:35) Troponin I Fs (01/09/23 15:37) Urine Culture (01/09/23 15:25) Manual Differential (01/09/23 15:40) Ns Iv 1000 Ml (Sodium Chloride 0.9%) (01/09/23 16:17) Ns Iv 1000 Ml (Sodium Chloride 0.9%) (01/09/23 16:48) Ondansetron Injection (Zofran Injectio (01/09/23 17:00) Metoclopramide Injection (Reglan Injecti (01/09/23 17:27) Metoclopramide Injection (Reglan Injecti (01/09/23 17:27) Vital Signs/I&O 01/09/23 01/09/23 15:25 17:20 Temp 36.7 36.7 Pulse 114 111 Resp 20 18 B/P (MAP) 174/81 (112) 156/63 Pulse Ox 98 98 O2 Delivery Room Air Room Air Capillary Refill : Progress Note #1: Progress Note Potential diagnosis of DKA, gastroenteritis, gastritis, food poisoning, cystitis, pyelonephritis, viral illness. Obtain peripheral IV access and send labs for complete blood count, comprehensive metabolic profile, lipase, troponin, urinalysis, venous blood gas. Obtain electrocardiogram to look at patient's heart rate and rhythm. Placed on cardiac telemetry monitoring and initially on my personal interpretation her electronic device monitor showed heart rate of 112 sinus tachycardia. Her oxygen level was good at 100% on room air but she was breathing approximately 24-26 times a minute. Blood pressure was slightly elevated 174/81. She was afebrile. She appears anxious. Ordered normal saline 1 L IV fluid bolus for hydration and tachycardia. Zofran 4 mg IV for nausea and vomiting. As she was not having any pain will defer any pain medicine or CT scan of the abdomen and pelvis. Accu- Chek was 289. Progress Note #2: Time: 15:51 Progress Note Her Accu-Chek showed a sugar of 289 and her urinalysis showed a specific gravity of 1.020 so it was slightly elevated. She had 1+ protein, 2+ glucose, 3+ ketones with 2-5 red blood cells and 5-10 white blood cells along with moderate bacteria. A culture was reflexed however she had no nitrites or leukocyte esterase. Will hold off on antibiotic for now since her UA did not have Nitrites or Leukocyte Esterase. Since she had the elevated glucose and had 3+ ketones on her urinalysis I did reach out to Dr. Dias the patient's primary care provider and the hospitalist on-call for [facility] today. She was agreeable with the IV fluids and antiemetics but will hold insulin until the rest of the comprehensive metabolic profile comes back. 1601 complete blood count shows elevated white blood cell count of 14.4 which might be related to stress reaction from vomiting since this morning but could also reflect infection. She had normal hemoglobin of 14.5 and platelets of 345. On the venous blood gas her pH was 7.46 so she was at least not acidotic off of this. Awaiting manual differential on the blood count as well as comprehensive metabolic profile with troponin and lipase. Her electrocardiogram was not showing ST elevation or ischemic changes but did show the sinus tachycardia. Progress Note #3: Time: 16:16 Progress Note COVID swab was negative. Patient's heart rate is improved to 105-110 now. Continue with IV fluids while waiting on comprehensive metabolic profile and lipase with troponin. Comprehensive metabolic panel shows normal sodium 137, potassium low normal at 3.8. Her CO2 was slightly low at 17 with an anion gap of 22. Her lipase was normal and not elevated. Troponin was negative at less than 0.3. Her BUN was normal at 12 with a creatinine of 0.48. Her glucose on the comprehensive metabolic panel came back at 286. She reports that her nausea is improved and she was tolerating ice chips. A second liter of normal saline IV fluid bolus has been ordered for additional hydration as her heart rate continues to be 105- 110. Will check back with Dr. 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 1645 Dr. Dias reviewed the labs and I advised her that the patient was tolerating some ice chips and continued to get IVF. She agreed to admit the patient to [facility] to continue IV fluids and anti-emetics. 1720 As EMS came for the patient she had emesis in the room and was feeling more nauseated again so despite a total of 8 mg of Zofran she was not keeping her ice chips down. Will give Reglan 5 mg IV prior to transfer by EMS. That way if some of this is gastroparesis or at least delayed gastric emptying then the motility aspect of the metoclopramide might help her as well as the anti-emetic effect. ECG Initial ECG Impression Date: Jan 09, 2023 Initial ECG Impression Time: 15:39 Initial ECG Rate: 112 Initial ECG Rhythm: S.Tach Initial ECG Comparisson: No Previous ECG Available Comment On my personal interpretation and review her electrocardiogram shows sinus tachycardia with a heart rate of 112 bpm. UT interval [address] elevation. There is some mild artifact and wander on the tracing. QT interval 334 ms with a QTc interval 400 ms. She has no prior tracing available for [facility] [employer]. Departure Impression Primary Impression: Nausea vomiting and diarrhea Additional Impressions: Sinus tachycardia Dehydration Hyperglycemia due to diabetes mellitus Disposition: XFER SHT-TRM HOSP Condition: Stable Transfer Transfer Reason: Patient preference Time Spoke to Accepting Phy: 16:45 Transfer Progress Notes Discussed with PCP and hospitalist Dr. Dias. Reviewed patient's presentation as well as concern for dehydration with her nausea of vomiting and diarrhea. Her labs did show elevation of her white blood cell count which may be more stress and dehydration related. Her glucose was 286 with mildly low CO2 of 17 and anion gap of 22 that was slightly elevated. She is improved with antiemetic and IV fluids and was tolerating some ice chips. Since she does have the elevated glucose and was having nausea vomiting and diarrhea well admit as an observation patient to [facility]. Continue with the IV fluids for now. Since Dr. Dias sees the patient through [facility] she can have access to her records there and will plan on seeing her tonight after she gets to [facility]. Transfer Facility: [facility] Method of Transfer: EMS Departure-Patient Inst. Referrals: RUPALI LOOMIS APRN (PCP) Primary Care Physician [facility] (Family) Primary Care Physician KAYLEIGH GLASER MD Jan 09, 2023 15:43
[2023-01-09 15:50] LABS: BASOPHILS # (AUTO) 0.1 10^3/uL (0.0-0.1); BASOPHILS % (AUTO) 0 % (0-10); EOSINOPHILS % (AUTO) 0 % (0-10); HEMATOCRIT 46 % (35-52); HEMOGLOBIN 14.5 g/dL (11.5-16.0); LYMPHOCYTES # (AUTO) 1.7 10^3/uL (1.0-4.0); LYMPHOCYTES % (AUTO) 12 % (12-44); MEAN CORPUSCULAR HEMOGLOBIN 28 pg (25-34); MEAN CORPUSCULAR HGB CONC 31 g/dL (32-36); MEAN CORPUSCULAR VOLUME 89 fL (80-99); MEAN PLATELET VOLUME 12.1 fL (9.0-12.2); MONOCYTES # (AUTO) 0.2 10^3/uL (0.0-1.0); MONOCYTES % (AUTO) 1 % (0-12); NEUTROPHILS # (AUTO) 12.4 10^3/uL (1.8-7.8); NEUTROPHILS % (AUTO) 86 % (42-75); PLATELET COUNT 345 10^3/uL (130-400); WHITE BLOOD COUNT 14.4 10^3/uL (4.3-11.0)
[2023-01-09 16:34] LABS: POTASSIUM 3.8 MMOL/L (3.6-5.0); SODIUM 137 MMOL/L (135-145)
[2023-01-09 16:35] LABS: ALANINE AMINOTRANSFERASE 17 U/L (0-55); ALBUMIN 4.6 GM/DL (3.2-4.5); ALKALINE PHOSPHATASE 73 U/L (40-136); BILIRUBIN,TOTAL 0.4 MG/DL (0.1-1.0); BUN/CREATININE RATIO 25; CALCIUM 10.2 MG/DL (8.5-10.1); CARBON DIOXIDE 17 MMOL/L (21-32); CHLORIDE 98 MMOL/L (98-107); CREATININE SERUM 0.48 MG/DL (0.60-1.30); GFR ESTIMATED 110; GLUCOSE 286 MG/DL (70-105); LIPASE 16 U/L (8-78); TOTAL PROTEIN 7.9 GM/DL (6.4-8.2)
[2023-01-09 16:44] LABS: LYMPHOCYTES % (MANUAL) 12 %; NEUTROPHILS % (MANUAL) 88 %
[2023-01-09 17:20] VITALS: BP 156/63
[2023-01-09] MEDS ORDERED: METOCLOPRAMIDE INJ 10 MG/2 ML (REGLAN) ONE (17:27)
[2023-01-09] MEDS ORDERED: METOCLOPRAMIDE INJ 10 MG/2 ML (REGLAN) IVP STA (17:27)
== END 2023-01-09 17:29 | disposition short-term general hospital (02) ==
LOC: EDUNIT# 15:23 → ER FS 15:24
DX: E11.65 Type 2 diabetes mellitus with hyperglycemia (principal); E86.0 Dehydration; R00.0 Tachycardia, unspecified; R19.7 Diarrhea, unspecified; D72.829 Elevated white blood cell count, unspecified; Z86.16 Personal history of COVID-19; Z79.4 Long term (current) use of insulin; Z20.822 Contact with and (suspected) exposure to COVID-19
CPT/HCPCS: 36415; 80053; 81000; 82805; 82947; 83690; 84484; 85007; 85027; 87088; 87636; 93005; 93041

== ENCOUNTER → 2023-01-11 | Outpatient (CLI) | payer OTHER, BC | LOC: LABNPT 08:57 | PROVIDERS: ATTEND Internal Medicine | DX: R11.10 Vomiting, unspecified (principal) | CPT/HCPCS: 82010 ==